=== PATIENT | male | born 1950 | race Caucasian/White ===

== ENCOUNTER 2017-08-25 14:27 | Emergency (ER) | payer MEDICARE, OTHER ==
[~2017-08-25] VITALS: Ht 175.3 cm; Wt 79.4 kg
[~2017-08-25 14:27] MED LIST: ACHD5005 PO; ATOR80TA PO; BPR150TCR PO; CPR500T PO; DICL100G20 TOP; FLC1T PO; FNT75TD TD; HYDR-623 PO; HYDR1LIQ3 PO; HYDR1TAB66 PO; METH4TAB PO; NITR-33 PO; ONDN4T PO; ORPH100T PO; OXYC-12 PO; RABE20TA PO; TRZ100T PO; ZLP10T PO
--- OUTSIDE RECORDS SUMMARY | 2017-08-25 14:38 | XMS REPORT | Clinical Summary ---
Author Author [facility] Organization [facility] Address Unknown Phone Unavailable Care Team Providers Care Commercial Driver'S License Driver Name Role Phone PCP Unavailable Source Comments Some departments are not documenting in the electronic medical record. If you do not see the information that you expected, contact Release of Information in the Health Information Management department at [phone] for further assistance in locating additional records.[facility] Allergies Not on File Current Medications Not on file Active Problems Not on file Social History Tobacco Use Types Packs/Day Years Used Date Never Assessed Sex Assigned at Date Recorded Not on file Last Filed Vital Signs Not on file Plan of Treatment Health Maintenance Due Date Last Done Comments HEPATITIS C SCREENING 1950 PHYSICAL (COMPREHENSIVE) 1956 EXAM PERTUSSIS VACCINE 1960 TETANUS VACCINE 1966 COLORECTAL CANCER 12/14/1999 SCREENING SHINGLES VACCINE 2009 PNEUMONIA (PCV13/PPSV23) 2014 VACCINES (1 of 2 - PCV13) INFLUENZA VACCINE 12/14/2017 Results Not on filefrom Last 3 Months
--- OUTSIDE RECORDS SUMMARY | 2017-08-25 14:39 | XMS REPORT | Continuity of Care Document ---
Author Author [facility] Organization [facility] Address Unknown Phone Unavailable Allergies Active Description Code Type Severity Reaction Onset Reported/Identified Relationship to Patient Clinical Status Yes No Known Drug Allergies [id number] Drug Allergy Unknown N/A 04/11/2011 Medications There is no data. Problems Date Dx Coded Attending Type Code Diagnosis Diagnosed By 04/11/2011 Ot 591 HYDRONEPHROSIS 04/11/2011 Ot 592.1 CALCULUS OF URETER 04/11/2011 Ot 789.09 ABDOMINAL PAIN, OTHER SPECIFIED SITE 04/13/2011 Ot 592.1 CALCULUS OF URETER 04/13/2011 Ot 788.0 RENAL COLIC 04/13/2011 Ot 789.09 ABDOMINAL PAIN, OTHER SPECIFIED SITE 04/23/2011 Ot 592.0 CALCULUS OF KIDNEY 01/02/2012 Ot 211.3 BENIGN NEOPLASM LG BOWEL 01/02/2012 Ot V76.51 SCREEN MAL NEOP-COLON 09/12/2012 ELLIOT FELIX DO Ot 724.2 LUMBAGO 09/12/2012 ELLIOT FELIX DO Ot 724.4 LUMBOSACRAL NEURITIS NOS 10/14/2012 CARLYN BRADFORD, BEATRIZ Wilburn Ot 724.2 LUMBAGO 10/14/2012 BEATRIZ ALCOCER MD Ot 724.4 LUMBOSACRAL NEURITIS NOS 03/20/2013 SHARON BRADFORD, MAXIMILIAN Wilburn Ot 787.91 DIARRHEA 07/05/2013 YADIEL BRADFORD, SONIYA Kaye Ot 338.18 OTHER ACUTE POSTOPERATIVE PAIN 07/05/2013 SONIYA COTTO MD Ot 719.41 JOINT PAIN-SHLDER 01/06/2014 YARA CAT MD Ot 721.3 01/06/2014 YARA CAT MD Ot V58.69 02/06/2014 Ot 787.02 02/06/2014 Ot 789.00 02/06/2014 Ot 783.21 02/06/2014 Ot 787.02 02/06/2014 Ot 717.3 02/06/2014 Ot 719.06 02/06/2014 Ot 592.0 02/06/2014 Ot 592.1 02/06/2014 Ot 592.0 02/06/2014 Ot V72.83 02/06/2014 Ot V74.8 02/06/2014 Ot 592.0 02/06/2014 Ot V45.89 02/06/2014 Ot V72.84 02/06/2014 YARA CAT MD Ot 272.4 02/06/2014 YARA CAT MD Ot 311 02/06/2014 YARA CAT MD Ot 716.90 02/06/2014 YARA CAT MD Ot 721.3 02/06/2014 YARA CAT MD Ot 722.83 02/06/2014 YARA CAT MD Ot 726.5 02/06/2014 YARA CAT MD Ot V12.71 02/06/2014 YARA CAT MD Ot V13.01 02/06/2014 YARA CAT MD Ot V45.4 02/06/2014 YARA CAT MD Ot V58.69 02/06/2014 YARA CAT MD Ot 715.36 02/06/2014 Ot 787.91 02/06/2014 SCOTT DUMONT APRN Ot V45.89 02/06/2014 SCOTT DUMONT APRN Ot V57.1 02/07/2014 SCOTT DUMONT APRN Ot V45.89 02/07/2014 SCOTT DUMONT APRN Ot V57.1 02/15/2014 SCOTT DUMONT APRN Ot V45.89 POSTSURGICAL STATES NEC 02/15/2014 SCOTT DUMONT INFECTION CONTROL PREVENTIONIST Ot V57.1 PHYSICAL THERAPY NEC 04/24/2014 Ot 783.21 04/24/2014 Ot 787.02 04/24/2014 Ot 717.3 04/24/2014 Ot 719.06 04/24/2014 Ot 592.0 04/24/2014 Ot 592.1 04/24/2014 Ot 592.0 04/24/2014 Ot V72.83 04/24/2014 Ot V74.8 04/24/2014 Ot 592.0 04/24/2014 Ot V45.89 04/24/2014 Ot V72.84 04/24/2014 YARA CAT MD Ot 272.4 04/24/2014 YARA CAT MD Ot 311 04/24/2014 YARA CAT MD Ot 716.90 04/24/2014 YARA CAT MD Ot 721.3 04/24/2014 YARA CAT MD Ot 722.83 04/24/2014 YARA CAT MD Ot 726.5 04/24/2014 YARA CAT MD Ot V12.71 04/24/2014 YARA CAT MD Ot V13.01 04/24/2014 YARA CAT MD Ot V45.4 04/24/2014 YARA CAT MD Ot V58.69 04/24/2014 YARA CAT MD Ot 715.36 04/24/2014 Ot 787.91 05/08/2014 Ot 717.3 05/08/2014 Ot 719.06 05/08/2014 Ot 592.0 05/08/2014 Ot 592.1 05/08/2014 Ot 592.0 05/08/2014 Ot V72.83 05/08/2014 Ot V74.8 05/08/2014 Ot 592.0 05/08/2014 Ot V45.89 05/08/2014 Ot V72.84 05/08/2014 YARA CAT MD Ot 272.4 05/08/2014 YARA CAT MD Ot 311 05/08/2014 YARA CAT MD Ot 716.90 05/08/2014 YARA CAT MD Ot 721.3 05/08/2014 YARA CAT MD Ot 722.83 05/08/2014 YARA CAT MD Ot 726.5 05/08/2014 YARA CAT MD Ot V12.71 05/08/2014 YARA CAT MD Ot V13.01 05/08/2014 YARA CAT MD Ot V45.4 05/08/2014 YARA CAT MD Ot V58.69 05/08/2014 YARA CAT MD Ot 715.36 05/08/2014 Ot 787.91 10/06/2014 Ot 717.3 10/06/2014 Ot 719.06 10/06/2014 Ot 592.0 10/06/2014 Ot 592.1 10/06/2014 Ot 592.0 10/06/2014 Ot V72.83 10/06/2014 Ot V74.8 10/06/2014 Ot 592.0 10/06/2014 Ot V45.89 10/06/2014 Ot V72.84 10/06/2014 YARA CAT MD Ot 272.4 10/06/2014 YARA CAT MD Ot 311 10/06/2014 YARA CAT MD Ot 716.90 10/06/2014 YARA CAT MD Ot 721.3 10/06/2014 YARA CAT MD Ot 722.83 10/06/2014 YARA CAT MD Ot 726.5 10/06/2014 YARA CAT MD Ot V12.71 10/06/2014 YARA CAT MD Ot V13.01 10/06/2014 YARA CAT MD Ot V45.4 10/06/2014 YARA CAT MD Ot V58.69 10/06/2014 YARA CAT MD Ot 715.36 10/06/2014 Ot 787.91 10/06/2014 YARA CAT MD Ot 721.3 LUMBOSACRAL SPONDYLOSIS 10/06/2014 YARA CAT MD Ot V58.69 OT MED,LT,CURRENT USE 11/14/2014 YARA CAT MD Ot 721.3 01/08/2015 Ot 592.0 01/08/2015 Ot 592.1 01/08/2015 Ot 592.0 01/08/2015 Ot V72.83 01/08/2015 Ot V74.8 01/08/2015 Ot 592.0 01/08/2015 Ot V45.89 01/08/2015 Ot V72.84 01/08/2015 YARA CAT MD Ot 272.4 01/08/2015 YARA CAT MD Ot 311 01/08/2015 YARA CAT MD Ot 716.90 01/08/2015 YARA CAT MD Ot 721.3 01/08/2015 YARA CAT MD Ot 722.83 01/08/2015 YARA CAT MD Ot 726.5 01/08/2015 YARA CAT MD Ot V12.71 01/08/2015 YARA CAT MD Ot V13.01 01/08/2015 YARA CAT MD Ot V45.4 01/08/2015 YARA CAT MD Ot V58.69 01/08/2015 YARA CAT MD Ot 715.36 01/08/2015 Ot 787.91 01/08/2015 YARA CAT MD Ot 721.3 02/13/2015 Ot 592.0 02/13/2015 Ot 592.1 02/13/2015 Ot 592.0 02/13/2015 Ot V72.83 02/13/2015 Ot V74.8 02/13/2015 Ot 592.0 02/13/2015 Ot V45.89 02/13/2015 Ot V72.84 02/13/2015 YARA CAT MD Ot 272.4 02/13/2015 YARA CAT MD Ot 311 02/13/2015 YARA CAT MD Ot 716.90 02/13/2015 YARA CAT MD Ot 721.3 02/13/2015 YARA CAT MD Ot 722.83 02/13/2015 YARA CAT MD Ot 726.5 02/13/2015 YARA CAT MD Ot V12.71 02/13/2015 YARA CAT MD Ot V13.01 02/13/2015 YARA CAT MD Ot V45.4 02/13/2015 YARA CAT MD Ot V58.69 02/13/2015 YARA CAT MD Ot 715.36 02/13/2015 Ot 787.91 02/13/2015 YARA CAT MD Ot 721.3 02/14/2015 NI ARIZMENDI MD Ot F17.210 NICOTINE DEPENDENCE, CIGARETTES, UNCOMPL 02/14/2015 NI ARIZMENDI MD Ot G89.18 OTHER ACUTE POSTPROCEDURAL PAIN 02/14/2015 NI ARIZMENDI MD Ot Z98.42 CATARACT EXTRACTION STATUS, LEFT EYE 12/18/2015 Ot 592.0 CALCULUS OF KIDNEY 12/18/2015 Ot 592.1 CALCULUS OF URETER 12/18/2015 Ot 592.0 CALCULUS OF KIDNEY 12/18/2015 Ot V72.83 EXAM PRE- OPERATIVE NEC 12/18/2015 Ot V74.8 SCREEN- BACTERIAL DIS NEC 12/18/2015 Ot 592.0 CALCULUS OF KIDNEY 12/18/2015 Ot V45.89 POSTSURGICAL STATES NEC 12/18/2015 Ot V72.84 EXAM PRE- OPERATIVE NOS 12/18/2015 YARA CAT MD Ot 272.4 HYPERLIPIDEMIA NEC/NOS 12/18/2015 YARA CAT MD Ot 311 DEPRESSIVE DISORDER NEC 12/18/2015 YARA CAT MD Ot 716.90 ARTHROPATHY NOS-UNSPEC 12/18/2015 YARA CAT MD Ot 721.3 LUMBOSACRAL SPONDYLOSIS 12/18/2015 YARA CAT MD Ot 722.83 POSTLAMINECT SYND-LUMBAR 12/18/2015 YARA CAT MD Ot 726.5 ENTHESOPATHY OF HIP 12/18/2015 YARA CAT MD Ot V12.71 PERSONAL HISTORY OF PEPTIC ULCER DISEASE 12/18/2015 YARA CAT MD Ot V13.01 PERSONAL HISTORY OF URINARY CALCULI 12/18/2015 YARA CAT MD Ot V45.4 ARTHRODESIS STATUS 12/18/2015 YARA CAT MD Ot V58.69 OTH MED,LT,CURRENT USE 12/18/2015 YARA CAT MD Ot 715.36 LOC OSTEOARTH NOS-L/LEG 12/18/2015 Ot 787.91 DIARRHEA 12/18/2015 YARA CAT MD Ot 721.3 LUMBOSACRAL SPONDYLOSIS 08/14/2016 Ot 592.0 CALCULUS OF KIDNEY 08/14/2016 Ot 592.1 CALCULUS OF URETER 08/14/2016 Ot 592.0 CALCULUS OF KIDNEY 08/14/2016 Ot V72.83 EXAM PRE- OPERATIVE NEC 08/14/2016 Ot V74.8 SCREEN- BACTERIAL DIS NEC 08/14/2016 Ot 592.0 CALCULUS OF KIDNEY 08/14/2016 Ot V45.89 POSTSURGICAL STATES NEC 08/14/2016 Ot V72.84 EXAM PRE- OPERATIVE NOS 08/14/2016 YARA CAT MD Ot 272.4 HYPERLIPIDEMIA NEC/NOS 08/14/2016 YARA CAT MD Ot 311 DEPRESSIVE DISORDER NEC 08/14/2016 YARA CAT MD Ot 716.90 ARTHROPATHY NOS-UNSPEC 08/14/2016 YARA CAT MD Ot 721.3 LUMBOSACRAL SPONDYLOSIS 08/14/2016 YARA CAT MD Ot 722.83 POSTLAMINECT SYND-LUMBAR 08/14/2016 YARA CAT MD Ot 726.5 ENTHESOPATHY OF HIP 08/14/2016 YARA CAT MD Ot V12.71 PERSONAL HISTORY OF PEPTIC ULCER DISEASE 08/14/2016 YARA CAT MD, Ot V13.01 PERSONAL HISTORY OF URINARY CALCULI 08/14/2016 YARA CAT MD, Ot V45.4 ARTHRODESIS STATUS 08/14/2016 YARA CAT MD, Ot V58.69 OTH MED,LT,CURRENT USE 08/14/2016 YARA CAT MD, Ot 715.36 LOC OSTEOARTH NOS-L/LEG 08/14/2016 Ot 787.91 DIARRHEA 08/14/2016 YARA CAT MD Ot 721.3 LUMBOSACRAL SPONDYLOSIS 05/22/2017 Ot V72.84 EXAM PRE- OPERATIVE NOS 05/22/2017 YARA CAT MD Ot 272.4 HYPERLIPIDEMIA NEC/NOS 05/22/2017 YARA CAT MD Ot 311 DEPRESSIVE DISORDER NEC 05/22/2017 YARA CAT MD Ot 716.90 ARTHROPATHY NOS-UNSPEC 05/22/2017 YARA CAT MD, Ot 721.3 LUMBOSACRAL SPONDYLOSIS 05/22/2017 YARA CAT MD Ot 722.83 POSTLAMINECT SYND-LUMBAR 05/22/2017 YARA CAT MD Ot 726.5 ENTHESOPATHY OF HIP 05/22/2017 YARA CAT MD, Ot V12.71 PERSONAL HISTORY OF PEPTIC ULCER DISEASE 05/22/2017 YARA CAT MD, Ot V13.01 PERSONAL HISTORY OF URINARY CALCULI 05/22/2017 YARA CAT MD, Ot V45.4 ARTHRODESIS STATUS 05/22/2017 YARA CAT MD, Ot V58.69 OTH MED,LT,CURRENT USE 05/22/2017 YARA CAT MD Ot 715.36 LOC OSTEOARTH NOS-L/LEG 05/22/2017 Ot 787.91 DIARRHEA 05/22/2017 YARA CAT MD, Ot 721.3 LUMBOSACRAL SPONDYLOSIS Procedures There is no data. Results There is no data. Encounters ACCT No. Visit Date/Time Discharge Status Pt. Type Provider Facility Loc./Unit Complaint [id number] 02/13/2015 23:08:00 02/14/2015 00:24:00 DIS Emergency NI ARIZMENDI MD [facility] ER PAIN BURNING OF BOTH EYES-CATARACT SURGERY 02-13 [id number] 10/06/2014 08:53:00 10/06/2014 23:59:59 CLS Outpatient YARA CAT MD [facility] CARD LUMBAR SPONDYLOSIS [id number] 02/15/2014 09:56:00 02/15/2014 14:25:00 DIS Outpatient SCOTT DUMONT APRN [facility] REHAB S/P MASSIVE RCT REPAIR R SHLD [id number] 01/06/2014 07:25:00 01/06/2014 08:22:00 DIS Outpatient YARA CAT MD [facility] CARD LUMBAR SPONDYLOSIS [id number] 07/05/2013 03:01:00 07/05/2013 03:52:00 DIS Emergency SONIYA COTTO MD [facility] ER POST OP RT SHOULDER PAIN [id number] 12/21/2012 12:51:00 03/20/2013 00:01:00 DIS Outpatient MAXIMILIAN HERRERA MD [facility] LAB DIARRHEA X 5 WKS [id number] 11/09/2012 09:49:00 11/09/2012 23:59:59 CLS Outpatient YARA CAT MD [facility] RAD RIGHT KNEE PAIN [id number] 10/22/2012 07:17:00 10/22/2012 23:59:59 CLS Outpatient YARA CAT MD [facility] CARD LUMBAR SPONDYLOSIS [id number] 10/14/2012 22:39:00 10/14/2012 23:19:00 DIS Emergency BEATRIZ ALCOCER MD [facility] ER BACK/HIP PAIN [id number] 09/12/2012 14:07:00 09/12/2012 15:12:00 DIS Emergency ELLIOT FELIX DO [facility] ER R BACK PAIN [id number] 02/06/2014 12:14:00 Document Registration [id number] 03/21/2013 00:00:00 Document Registration [id number] 01/02/2012 07:06:00 Document Registration [id number] 01/01/2012 07:20:00 Document Registration [id number] 05/07/2011 13:32:00 Document Registration [id number] 04/23/2011 05:37:00 Document Registration [id number] 04/22/2011 08:09:00 Document Registration [id number] 04/18/2011 14:00:00 Document Registration [id number] 04/13/2011 02:55:00 Document Registration [id number] 04/11/2011 02:41:00 Document Registration [id number] 07/06/2009 12:20:00 Document Registration [id number] 11/03/2008 10:09:00 Document Registration [id number] 10/25/2008 07:11:00 Document Registration [id number] 10/06/2014 08:54:38 ACT Document Registration
--- NOTE | 2017-08-25 15:15 | ED Fall/Injury ---
General Chief Complaint: Chest Wall/Rib Pain Stated Complaint: LT RIB PAIN Nursing Triage Note: PT STATES HAD FALLEN ON THURSDAY HAS PAIN UNDER L ARM AND L RIB AREA. PT RATES PAIN 9/10 WHEN COUGHS DENIES LOC. PT IS A SMOKER, AND STATES DRINKS RUM DAILY Source: patient Exam Limitations: no limitations History of Present Illness Date Seen by Provider: Aug 25, 2017 Time Seen by Provider: 14:46 Initial Comments This 66-year-old gentleman presents to the emergency room with pain on the left side of the chest after having a fall on August 21. He fell while helping a friend move some items and struck his left chest on the ground. He denies any head or neck injury. He has had persistent pain since that time. He has been taking ibuprofen and tramadol for the pain. He is now out of tramadol and has put in a refill request with his primary care provider, Dr. Clifford. Patient also drinks rum daily and he states that helps control the pain. Pain is much worse when he coughs and exhales. Allergies and Home Medications Allergies Coded Allergies: No Known Drug Allergies (Unverified , 04/11/11) Home Medications Bupropion Hcl 150 Mg Tablet, 150 MG PO BID, (Reported) Diclofenac Sod 100 Gm Gel, 1 EACH TOP NEEDED, (Reported) Hydrocodone Bit/Acetaminophen 1 Tab Tablet, 1 EACH PO Q 4 - 6 HRS PRN, (Reported ) Hydrocodone/Acetaminophen 1 Each Tablet, 1 EACH PO Q4H PRN for PAIN-MODERATE TO SEVERE Prescribed by: NI CANTRELL on 08/25/17 1547 Hydromorphone Hcl 1 Mg/1 Ml Liquid, 2 MG PO Q4H, (Reported) Rabeprazole Sodium 20 Mg Tablet.dr, 5 MG PO DAILY, (Reported) Trazodone Hcl 100 Mg Tab, 100 MG PO HS, (Reported) 100-300 MG PRN HS Zolpidem Tartrate 10 Mg Tablet, 10 MG PO HS, (Reported) Patient Home Medication List Home Medication List Reviewed: Yes Review of Systems Constitutional: no symptoms reported Eyes: No Symptoms Reported Ears, Nose, Mouth, Throat: no symptoms reported Respiratory: no symptoms reported Cardiovascular: no symptoms reported Gastrointestinal: no symptoms reported Genitourinary: no symptoms reported Musculoskeletal: see HPI Skin: no symptoms reported Psychiatric/Neurological: No Symptoms Reported Past Qrrjysa-Efiqfb-Byhmdq Hx Patient Social History Alcohol Use: Regular Use Alcohol Beverage of Choice: Rum Recreational Drug Use: No (smokes 1/2-1 ppd) Smoking Status: Current Everyday Smoker Type Used: Cigarettes Recent Foreign Travel: No Contact w/Someone Who Travel: No Recent Infectious Disease Expo: No Physical Abuse: No Sexual Abuse: No Immunizations Up To Date Tetanus Booster (TDap): Unknown Date of Influenza Vaccine: Dec 14, 2010 Seasonal Allergies Seasonal Allergies: No Past Medical History Surgeries: Yes Abdominal, Orthopedic Respiratory: Yes (tobaccoism) Cardiac: No Neurological: No Reproductive Disorders: No Sexually Transmitted Disease: No Genitourinary: Yes Kidney Stones Gastrointestinal: Yes Gastroesophageal Reflux, Chronic Constipation, Ulcer Musculoskeletal: Yes Degenerate Disk Disease, Arthritis, Chronic Back Pain Endocrine: No HEENT: No Loss of Vision: Denies Cancer: No Skin Psychosocial: Yes (alcohol dependence) Depression Nursing Suicide Risk Score: 0 Physical Exam Vital Signs Vital Signs - First Documented 08/25/17 14:43 Temp 97.8 Pulse 76 Resp 18 B/P (MAP) 119/85 (96) Pulse Ox 96 Capillary Refill : NONE General Appearance: WD/WN, no apparent distress HEENT: PERRL/EOMI, normal ENT inspection Neck: normal inspection Cardiovascular: regular rate, rhythm, no edema, no murmur Respiratory: lungs clear, normal breath sounds, no respiratory distress, no accessory muscle use, other (left lateral chest wall tender to palpation) Gastrointestinal: normal bowel sounds, non tender, soft Extremities: non-tender, normal inspection, no pedal edema Neurologic/Psychiatric: pre school manager II-XII nml as tested, no motor/sensory deficits, alert, normal mood/affect, oriented x 3 Skin: normal color [place] Coma Score Best Eye Response: (4) Open Spontaneously Best Verbal Response: (5) Oriented Best Motor Response: (6) Obeys Commands [place] Total: 15 Progress/Results/Core Measures Results/Orders My Orders Orders - NI ARIZMENDI MD Ribs, Left 2-3 Views (08/25/17 14:54) Vital Signs/I&O 08/25/17 08/25/17 14:43 16:00 Temp 97.8 97.8 Pulse 76 76 Resp 18 18 B/P (MAP) 119/85 (96) 119/85 (96) Pulse Ox 96 96 Blood Pressure Mean: 96 Progress Progress Note : Progress Note Patient was found to have at least one rib fracture. There was a definite rib fracture of rib 8 as identified on x-ray by the radiologist. I believe there may be one or 2 additional minor fractures as well based on my interpretation. Hydrocodone was prescribed for pain control. See discharge instructions. Diagnostic Imaging Diagonstic Imaging: Xray Plain Films/CT/US/NM/MRI: chest Comments Rib x-rays reviewed by me and report reviewed. See report below: NAME: SURI GARCIA [facility] REC#: [id number] PT STATUS: DEP ER : 1950 PHYSICIAN: NI ARIZMENDI MD ADMIT DATE: 08/25/17/ER Signed Date of Exam: 08/25/17 RIBS, LEFT 2-3 VIEWS INDICATION: Status post fall several days ago, pain. TECHNIQUE: Three views of the left ribs were obtained at 3:24 PM. CORRELATION STUDY: None. FINDINGS: A minimally displaced left posterolateral eighth rib fracture is present. The remaining ribs appear intact. The left lung field is unremarkable. IMPRESSION: Minimally displaced left posterolateral eighth rib fracture. Dictated by: Dictated on workstation # [id number] Dict: 08/25/17 1507 Trans: 08/25/17 1631 Interpreted by: ANNE SMITH DO Electronically signed by: ANNE SMITH DO 08/25/17 1631 Departure Impression Primary Impression: Left rib fracture Qualified Codes: S22.42XA - Multiple fractures of ribs, left side, initial encounter for closed fracture Additional Impression: Fall on same level Qualified Codes: W18.30XA - Fall on same level, unspecified, initial encounter Disposition: 01 HOME, SELF-CARE Condition: Stable Departure-Patient Inst. Decision time for Depature: 15:39 Referrals: MAXIMILIAN CLIFFORD MD (PCP/Family) Primary Care Physician Patient Instructions: Rib Fractures in Adults Add. Discharge Instructions: Exercise at least 10 deep breaths 10 times per hour while awake. You may treat your pain with Ultram (tramadol) as prescribed. For more severe pain you may take hydrocodone as prescribed. Return to care if you have worsening symptoms, especially if you have worsening cough, fever, or increasing pain. Avoid use of NSAID medications such as ibuprofen or naproxen as they may delay bone healing. Follow-up with your primary care provider soon as possible. All discharge instructions reviewed with patient and/or family. Voiced understanding. Scripts Hydrocodone/Acetaminophen (Hydrocodone-Acetamin 5-325 mg) 1 Each Tablet 1 EACH PO Q4H PRN for PAIN-MODERATE TO SEVERE, #20 TAB Prov: NI ARIZMENDI MD 08/25/17 Copy Copies To 1: MAXIMILIAN CLIFFORD MD, JOSHUA T MD Aug 25, 2017 15:15
[2017-08-25] MEDS ORDERED: HYDR-3812 PO (15:47)
[2017-08-25 16:00] VITALS: BP 119/85
== END 2017-08-25 16:00 | disposition home or self-care (01) ==
LOC: EDUNIT# 14:27 → ER 14:29
DX: S22.32XA Fracture of one rib, left side, initial encounter for closed fracture (principal); K21.9 Gastro-esophageal reflux disease without esophagitis; R40.2142 Coma scale, eyes open, spontaneous, at arrival to emergency department; R40.2252 Coma scale, best verbal response, oriented, at arrival to emergency department; R40.2362 Coma scale, best motor response, obeys commands, at arrival to emergency department; F10.20 Alcohol dependence, uncomplicated; F17.210 Nicotine dependence, cigarettes, uncomplicated; F32.9 Major depressive disorder, single episode, unspecified; Z85.9 Personal history of malignant neoplasm, unspecified; Z87.19 Personal history of other diseases of the digestive system; W18.30XA Fall on same level, unspecified, initial encounter
CPT/HCPCS: 71100

== ENCOUNTER → 2019-08-09 | Outpatient (CLI) | payer MEDICARE, OTHER ==
[~2019-08-09] MED LIST changes: +HOLD METFORMIN - RECEIVED CONTRAST 20 ML VIAL IV SCH; +IOHEXOL 350 MG/ML 100 ML (OMNIPAQUE 350) VIAL IV ONE; +NS 100 ML (IVPB) BAG IV ONE
--- NOTE | 2019-08-09 13:08 | Diagnostic Imaging Report ---
EXAMINATION: CT Abdomen and Pelvis with intravenous contrast. TECHNIQUE: Multiple contiguous axial images were obtained through the abdomen and pelvis after the uneventful administration of intravenous contrast. All CT scans use one or more of the following dose optimizing techniques: automated exposure control, MA and/or KvP adjustment based on a patient size and exam type, or iterative reconstruction. HISTORY: Abdominal distention. COMPARISON: 04/18/2011. FINDINGS: Limited views of the lower thorax show mild coronary artery calcifications. The liver is normal without focal lesion. There is no biliary ductal dilation. Gallbladder is normal. Pancreas is normal. Spleen is normal. Adrenal glands are normal. The kidneys are normal. There is no hydronephrosis. Urinary bladder is normal. Visualized bowel is normal in caliber without obstruction or inflammation. There has been a ventral hernia repair. No free fluid or air. No abdominal or pelvic lymphadenopathy. Aorta is normal in caliber without aneurysm. There are no suspicious osseus lesions. IMPRESSION: 1. No acute abnormality in the abdomen or pelvis. Dictated by: Dictated on workstation # [id number]
== END ==
LOC: RAD 11:14
PROVIDERS: ATTEND Internal Medicine
DX: R14.0 Abdominal distension (gaseous) (principal); I10 Essential (primary) hypertension
CPT/HCPCS: 74177

== ENCOUNTER 2019-09-15 06:19 | Outpatient (RCR) | payer MEDICARE, OTHER ==
[~2019-09-15 06:19] MED LIST changes: -HOLD METFORMIN - RECEIVED CONTRAST 20 ML VIAL IV SCH; -IOHEXOL 350 MG/ML 100 ML (OMNIPAQUE 350) VIAL IV ONE; -NS 100 ML (IVPB) BAG IV ONE
[2019-12-03] MEDS ORDERED: TRAM50TA3 PO (13:31)
[2019-12-03] MEDS ORDERED: RABE20TA27 PO (13:31)
[2019-12-05] MEDS ORDERED: ACET-2267 PO (08:54)
[2019-12-05] MEDS ORDERED: IBUP-2473 PO (08:54)
[2019-12-05] MEDS ORDERED: ONDA4TAB11 PO (08:54)
[2019-12-05] MEDS ORDERED: POLY17PO6 PO (08:54)
[2019-12-05] MEDS ORDERED: BUPR150T14 PO ×2 (09:05)
== END 2019-12-14 | disposition home or self-care (01) ==
LOC: PREOP 06:19
PROVIDERS: ATTEND Internal Medicine
DX: Z01.818 Encounter for other preprocedural examination (principal)

== ENCOUNTER 2019-12-02 06:50 | Inpatient (IN) | payer MEDICARE, OTHER ==
[~2019-12-02] VITALS: Ht 175 cm; Wt 87.8 kg
[2019-12-02] MEDS ORDERED: LACTATED RINGERS 1,000 ML IV ONE ×2 (06:53→08:03)
[2019-12-02] MEDS ORDERED: ONDANSETRON 4 MG/2 ML (SDV) Z0FRAN IVP ONE ×2 (07:00→12:15)
[2019-12-02] MEDS ORDERED: PANTOPRAZOLE 40 MG (PROTONIX) VIAL IV ONE (07:00)
--- NOTE | 2019-12-02 07:05 | ED Abdominal Pain ---
General Chief Complaint: Abdominal/GI Problems Stated Complaint: ABD PAIN Source of Information: Patient History of Present Illness Date Seen by Provider: Dec 02, 2019 Time Seen by Provider: 06:51 Initial Comments PT ARRIVES VIA EMS FROM HOME C/O EPIGASTRIC PAIN--BEGAN SOMETIME DURING THE NIGHT C/O NAUSEA--ONGOING PROBLEM, AND DRY HEAVES BEGAN MAN[place]OR HAS ZOFRAN AND PHENERGAN SUPPOSITORIES AT HOME, BUT HAS NOT TAKEN ANYTHING TAKES ULTRAM FOR CHRONIC BACK PAIN AND GENERALIZED PAIN, BUT HAS NOT TAKEN ANY IN A COUPLE OF WEEKS NO FEVER ATE NORMAL YESTERDAY HAD NORMAL BM THIS MORNING PRIOR ABDOMINAL SURGERIES; BILAT INGUINAL HERNIA REPAIR, HAD BACK SURGERY WITH BOTH POSTERIOR AND ANTERIOR APPROACH. HX OF ALCOHOLISM --DRINKS AT LEAST A PINT OR MORE OF RUM A DAY--LAST DRINK WAS AROUND MIDNIGHT PT ALSO SMOKES 2 PPD PCP: DR. HERRERA Allergies and Home Medications Allergies Coded Allergies: No Known Drug Allergies (Unverified , 04/11/11) Home Medications Bupropion Hcl 150 Mg Tablet, 150 MG PO BID, (Reported) Diclofenac Sod 100 Gm Gel, 1 EACH TOP NEEDED, (Reported) Hydrocodone Bit/Acetaminophen 1 Tab Tablet, 1 EACH PO Q 4 - 6 HRS PRN, (Reported) Hydrocodone Bit/Acetaminophen 1 Each Tablet, 1 EACH PO Q4H PRN for PAIN-MODERATE TO SEVERE Prescribed by: NI CANTRELL on 08/25/17 1547 Hydromorphone Hcl 1 Mg/1 Ml Liquid, 2 MG PO Q4H, (Reported) Rabeprazole Sodium 20 Mg Tablet.dr, 5 MG PO DAILY, (Reported) Trazodone Hcl 100 Mg Tab, 100 MG PO HS, (Reported) 100-300 MG PRN HS Zolpidem Tartrate 10 Mg Tablet, 10 MG PO HS, (Reported) Patient Home Medication List Home Medication List Reviewed: Yes Review of Systems Review of Systems Constitutional: no symptoms reported; No chills, No diaphoresis, No dizziness, No fever Respiratory: No Symptoms Reported Cardiovascular: No Symptoms Reported; Denies Chest Pain Gastrointestinal: See HPI; Denies Constipated, Denies Diarrhea; Nausea, Vomiting (DRY HEAVES) Genitourinary: No Symptoms Reported Musculoskeletal: other (CHRONIC GENERALIZED PAIN ) Skin: no symptoms reported Psychiatric/Neurological: No Symptoms Reported Endocrine: No Symptoms Reported Hematologic/Lymphatic: No Symptoms Reported Past Wwgqziq-Lppnqp-Ckavog Hx Past Med/Social Hx: Reviewed and Corrections made Patient Social History Alcohol Use: Regular Use (AT LEAST A PINT OF RUM A DAY) Alcohol Beverage of Choice: Rum Smoking Status: Current Everyday Smoker (2 PPD) Type Used: Cigarettes (2 PPD) Immunizations Up To Date Tetanus Booster (TDap): Unknown Date of Influenza Vaccine: Dec 14, 2010 Seasonal Allergies Seasonal Allergies: No Past Medical History Surgeries: Yes (IVANNA INGUINAL HERNIA REPAIR;BACK SURGERY X 2-ANT & POST APPROACH;R ROT CUFF) Abdominal, Orthopedic Respiratory: Yes (tobaccoism) Cardiac: No Neurological: No Reproductive Disorders: No Sexually Transmitted Disease: No Genitourinary: Yes (LITHOTRIPSY 2011) Kidney Stones Gastrointestinal: Yes (LEFT INGUINAL HERNIA REPAIR;GASTRITIS) Abdominal Hernia, Gastroesophageal Reflux, Chronic Constipation, Polyps, Ulcer Musculoskeletal: Yes (BACK SURGERY X 2) Degenerate Disk Disease, Arthritis, Chronic Back Pain Endocrine: No HEENT: No Loss of Vision: Denies Cancer: Yes (BASAL CELL) Skin Did You Recieve Any Treatments: Yes What Type of Treatment Did You: Surgical Intervention Psychosocial: Yes (alcohol dependence) Depression Family Medical History SOCIAL HISTORY: -DRINKS AT LEAST A PINT OF RUM A DAY -DENIES DRUG USE -SMOKES 2 PPD HAS BEEN ON DAILY DILAUDID IN PAST FOR BACK AND GENERALIZED PAIN, NOW ON TRAMADOL, OF 12/02/19 PSH: -BILATERAL INGUINAL HERNIA REPAIR -BACK SURGERY X 2--ANTERIOR AND POSTERIOR APPROACH--L4-5 LAMINECTOMY;L5-S1 FUSION -RIGHT SHOULDER ROTATOR CUFF REPAIR -EGD 2008--GASTRITIS -COLONOSCOPY--2011--POLYPECTOMY -LITHOTRIPSY 2011 -RIGHT KNEE SCOPE -REMOVAL OF BASAL CELL SKIN CANCER Physical Exam Vital Signs Vital Signs - First Documented 12/02/19 06:52 Temp 36.1 Pulse 96 Resp 20 B/P (MAP) 166/108 (127) Pulse Ox 93 O2 Delivery Room Air Capillary Refill : Height/Weight/BMI Height: 5'9.00" Weight: 175lbs. oz. 79.270798vn; BMI Method:Stated General Appearance: WD/WN, other (DRY HEAVING ON ARRIVAL) Respiratory: normal breath sounds, no respiratory distress, no accessory muscle use Cardiovascular: regular rate, rhythm, no edema, no JVD, no murmur Gastrointestinal: no organomegaly, no pulsatile mass, abnormal bowel sounds (DECREASED), distended (AND FIRM), tenderness (MID EPIGASTRIC TENDERNESS) Extremities: normal inspection, no pedal edema, normal capillary refill Back: no CVA tenderness Neurologic/Psychiatric: safety companion II-XII nml as tested, no motor/sensory deficits, alert, other (ANXIOUS, TREMULOUS, ORIENTED TO PERSON, PLACE, SOMEWHAT DISORIENTED TO TIME. POOR MEMORY. ) Skin: normal color, warm/dry Progress/Results/Core Measures Results/Orders Lab Results Laboratory Tests Test 12/02/19 06:55 12/02/19 09:30 Range/Units White Blood Count 4.9 4.3-11.0 10^3/uL Red Blood Count 3.19 L 4.35-5.85 10^6/uL Hemoglobin 12.8 L 13.3-17.7 G/DL Hematocrit 36 L 40-54 % Mean Corpuscular Volume 113 H 80-99 FL Mean Corpuscular Hemoglobin 40 H 25-34 PG Mean Corpuscular Hemoglobin Concent 36 32-36 G/DL Red Cell Distribution Width 16.8 H 10.0-14.5 % Platelet Count 183 130-400 10^3/uL Mean Platelet Volume 8.9 7.4-10.4 FL Neutrophils (%) (Auto) 65 42-75 % Lymphocytes (%) (Auto) 25 12-44 % Monocytes (%) (Auto) 9 0-12 % Eosinophils (%) (Auto) 2 0-10 % Basophils (%) (Auto) 0 0-10 % Neutrophils # (Auto) 3.2 1.8-7.8 X 10^3 Lymphocytes # (Auto) 1.2 1.0-4.0 X 10^3 Monocytes # (Auto) 0.4 0.0-1.0 X 10^3 Eosinophils # (Auto) 0.1 0.0-0.3 10^3/uL Basophils # (Auto) 0.0 0.0-0.1 10^3/uL Prothrombin Time 13.3 12.2-14.7 SEC INR Comment 1.0 0.8-1.4 Activated Partial Thromboplast Time 28 24-35 SEC Sodium Level 141 135-145 MMOL/L Potassium Level 3.5 L 3.6-5.0 MMOL/L Chloride Level 103 98-107 MMOL/L Carbon Dioxide Level 17 L 21-32 MMOL/L Anion Gap 21 H 5-14 MMOL/L Blood Urea Nitrogen 10 7-18 MG/DL Creatinine 0.81 0.60-1.30 MG/DL Estimat Glomerular Filtration Rate > 60 BUN/Creatinine Ratio 12 Glucose Level 88 70-105 MG/DL Calcium Level 9.6 8.5-10.1 MG/DL Corrected Calcium 9.2 8.5-10.1 MG/DL Magnesium Level 1.7 1.6-2.4 MG/DL Total Bilirubin 0.8 0.1-1.0 MG/DL Aspartate Amino Transf (AST/SGOT) 104 H 5-34 U/L Alanine Aminotransferase (ALT/SGPT) 57 H 0-55 U/L Alkaline Phosphatase 89 40-136 U/L Troponin I < 0.028 <0.028 NG/ML Total Protein 7.7 6.4-8.2 GM/DL Albumin 4.5 3.2-4.5 GM/DL Amylase Level 64 25-125 U/L Lipase 38 8-78 U/L Serum Alcohol 87 H <10 MG/DL Urine Color YELLOW Urine Clarity CLEAR Urine pH 5.5 5-9 Urine Specific [place] <=1.005 1.016-1.022 Urine Protein NEGATIVE NEGATIVE Urine Glucose (UA) NEGATIVE NEGATIVE Urine Ketones TRACE H NEGATIVE Urine Nitrite NEGATIVE NEGATIVE Urine Bilirubin NEGATIVE NEGATIVE Urine Urobilinogen 0.2 < = 1.0 MG/DL Urine Leukocyte Esterase NEGATIVE NEGATIVE Urine RBC (Auto) NEGATIVE NEGATIVE Urine RBC NONE /HPF Urine WBC NONE /HPF Urine Crystals NONE /LPF Urine Bacteria NEGATIVE /HPF Urine Casts NONE /LPF Urine Mucus NEGATIVE /LPF Urine Culture Indicated NO Urine Opiates Screen NEGATIVE NEGATIVE Urine Oxycodone Screen NEGATIVE NEGATIVE Urine Methadone Screen NEGATIVE NEGATIVE Urine Propoxyphene Screen NEGATIVE NEGATIVE Urine Barbiturates Screen NEGATIVE NEGATIVE Ur Tricyclic Antidepressants Screen NEGATIVE NEGATIVE Urine Phencyclidine Screen NEGATIVE NEGATIVE Urine Amphetamines Screen NEGATIVE NEGATIVE Urine Methamphetamines Screen NEGATIVE NEGATIVE Urine Benzodiazepines Screen NEGATIVE NEGATIVE Urine Cocaine Screen NEGATIVE NEGATIVE Urine Cannabinoids Screen NEGATIVE NEGATIVE My Orders Orders - ELLIOT FELIX DO Ed Iv/Invasive Line Start (12/02/19 06:53) Ekg Tracing (12/02/19 06:53) Monitor-Rhythm Ecg Trace Only (12/02/19 06:53) Ondansetron Injection (Zofran Injectio (12/02/19 07:00) Amylase (12/02/19 06:53) Cbc With Automated Diff (12/02/19 06:53) Comprehensive Metabolic Panel (12/02/19 06:53) Lipase (12/02/19 06:53) Magnesium (12/02/19 06:53) Protime With Inr (12/02/19 06:53) Partial Thromboplastin Time (12/02/19 06:53) Ua Culture If Indicated (12/02/19 06:53) Troponin I (12/02/19 06:53) Ed Iv/Invasive Line Start (12/02/19 06:53) Lactated Ringers (Lr 1000 Ml Iv Solution (12/02/19 06:53) Pantoprazole Injection (Protonix Injecti (12/02/19 07:00) Alcohol (12/02/19 07:04) Drug Screen Stat (Urine) (12/02/19 07:04) Promethazine Injection (Phenergan Injec (12/02/19 07:45) Diphenhydramine Injection (Benadryl Inje (12/02/19 07:45) Ct Chest/Abdomen/Pelvis W (12/02/19 07:45) Iohexol Injection (Omnipaque 350 Mg/Ml 1 (12/02/19 08:00) Received Contrast (Hold Metformin- Contr (12/02/19 08:00) Ns (Ivpb) (Sodium Chloride 0.9% Ivpb Bag (12/02/19 08:00) Ed Iv/Invasive Line Start (12/02/19 08:03) Lactated Ringers (Lr 1000 Ml Iv Solution (12/02/19 08:03) Promethazine Injection (Phenergan Injec (12/02/19 09:45) Diphenhydramine Injection (Benadryl Inje (12/02/19 09:45) Fentanyl Injection (Sublimaze Injection (12/02/19 10:46) Benzocaine Extension Tube (Hurricaine Ex (12/02/19 10:54) Catheter(Urinary) Insert & Ass 03,15 (12/02/19 11:37) Ondansetron Injection (Zofran Injectio (12/02/19 12:15) Scopolamine Patch (Transderm-Scop Patch) (12/02/19 14:30) Promethazine Injection (Phenergan Injec (12/02/19 14:30) Medications Given in ED Current Medications Medications Dose Ordered Sig/Zacarias Route Start Time Stop Time Status Last Admin Dose Admin Benzocaine 1 ea STK-MED ONCE .ROUTE 12/02/19 10:54 12/02/19 10:58 DC 12/02/19 11:00 1 EA Diphenhydramine HCl 25 mg ONCE ONCE IVP 12/02/19 09:45 12/02/19 09:46 DC 12/02/19 09:59 25 MG Diphenhydramine HCl 50 mg ONCE ONCE IVP 12/02/19 07:45 12/02/19 07:46 DC 12/02/19 07:49 50 MG Iohexol 100 ml ONCE ONCE IV 12/02/19 08:00 12/02/19 08:01 DC 12/02/19 08:10 100 ML Lactated Ringer's 1,000 ml @ 0 mls/hr Q0M ONCE IV 12/02/19 08:03 12/02/19 08:04 DC 12/02/19 08:21 1,000 MLS/HR Ondansetron HCl 8 mg ONCE ONCE IVP 12/02/19 07:00 12/02/19 07:01 DC 12/02/19 07:00 8 MG Ondansetron HCl 8 mg ONCE ONCE IVP 12/02/19 12:15 12/02/19 12:17 DC 12/02/19 12:19 8 MG Pantoprazole 40 mg ONCE ONCE IV 12/02/19 07:00 12/02/19 07:01 DC 12/02/19 07:14 40 MG Promethazine HCl 25 mg ONCE ONCE IVP 12/02/19 07:45 12/02/19 07:46 DC 12/02/19 07:49 25 MG Promethazine HCl 25 mg ONCE ONCE IVP 12/02/19 09:45 12/02/19 09:46 DC 12/02/19 09:59 25 MG Promethazine HCl 25 mg ONCE ONCE IVP 12/02/19 14:30 12/02/19 14:31 DC 12/02/19 14:22 25 MG Scopolamine 1.5 mg ONCE ONCE TD 12/02/19 14:30 12/02/19 14:31 DC 12/02/19 14:22 1.5 MG Sodium Chloride 100 ml ONCE ONCE IV 12/02/19 08:00 12/02/19 08:01 DC 12/02/19 08:10 80 ML Vital Signs/I&O 12/02/19 06:52 Temp 36.1 Pulse 96 Resp 20 B/P (MAP) 166/108 (127) Pulse Ox 93 O2 Delivery Room Air Progress Progress Note : Progress Note INCREASING AGITATION, CONFUSION, TREMULOUSNESS, BUT THIS SEEMED TO BE MORE NOTABLE AFTER GIVEN PHENERGAN AND BENADRYL FOR PERSISTENT NAUSEA/VOMITING/DRY HEAVING GIVEN MULTIPLE MEDICATIONS FOR NAUSEA/VOMITING PT EXTREMELY UNCOOPERATIVE FOR NG TUBE PLACEMENT, AND UNSUCCESSFUL DESPITE MULT IPLE ATTEMPTS Initial ECG Impression Date: Dec 02, 2019 Initial ECG Impression Time: 07:02 Initial ECG Rate: 97 Initial ECG Rhythm: Normal Sinus Initial ECG Impression: Nonspecific Changes Diagnostic Imaging Comments PER RADIOLOGIST REPORT AT 0851 CT CHEST/ABDOMEN/PELVIS- CT CHEST: No axillary, hilar or mediastinal lymphadenopathy detected. No pericardial or pleural fluid is identified. The lungs appear clear. No infiltrate, nodule or mass is detected. IMPRESSION: Unremarkable CT of the chest. CT ABDOMEN AND PELVIS: Liver demonstrates diffuse low density consistent with hepatic steatosis. No discrete liver mass is detected. Gallbladder is unremarkable. There is no biliary ductal dilatation. The pancreas and spleen are unremarkable. No adrenal mass is detected. Kidneys are unremarkable. No hydronephrosis. Aorta is calcified but non-aneurysmal. There are some mild to moderately dilated and fluid-filled small bowel loops throughout the abdomen. There does appear to be some transition distally and features are concerning for small bowel obstruction. The colon is decompressed. There is no free fluid or fluid collection identified. The bladder is unremarkable. There are postsurgical changes involving the lower anterior abdominal wall. Bony structures demonstrate postop changes of a posterior instrumented fusion at L4-S1 levels. IMPRESSION: 1. Hepatic steatosis. 2. Moderately dilated fluid-filled small bowel loops throughout the abdomen with potential transition distally, raising concern for small bowel obstruction. No free air or abscess formation is identified. No other significant abnormalities identified. Reviewed: Reviewed by Me Departure Communication (Admissions) [id number]--DISCUSSED WITH DR. MITTAL HERE IN ER, SURGEON [employer] TENDER. [id number]--SPOKE WITH DR. MITTAL AGAIN, HE ADVISES TO ADMIT TO HOSPITALIST, AND HE WILL SEE PT IN CONSULT. ORDERS NOTED 1045--SPOKE WITH DR. COX, HOSPITALIST, ACCEPTS PT FOR ADMIT Impression Primary Impression: Small bowel obstruction Additional Impression: Alcoholism Disposition: 09 ADMITTED INPATIENT Condition: Stable Admissions Decision to Admit Reason: Admit from ER (General) Decision to Admit/Date: Dec 02, 2019 Time/Decision to Admit Time: 10:40 Departure-Patient Inst. Referrals: MAXIMILIAN HERRERA MD (PCP/Family) Primary Care Physician ELLIOT FELIX DO Dec 02, 2019 07:05
[2019-12-02 07:13] LABS: BASOPHILS % (AUTO) 0 % (0-10); EOSINOPHILS # (AUTO) 0.1 10^3/uL (0.0-0.3); EOSINOPHILS % (AUTO) 2 % (0-10); HEMATOCRIT 36 % (40-54); HEMOGLOBIN 12.8 G/DL (13.3-17.7); LYMPHOCYTES # (AUTO) 1.2 X 10^3 (1.0-4.0); LYMPHOCYTES % (AUTO) 25 % (12-44); MEAN CORPUSCULAR HEMOGLOBIN 40 PG (25-34); MEAN CORPUSCULAR HGB CONC 36 G/DL (32-36); MEAN CORPUSCULAR VOLUME 113 FL (80-99); MEAN PLATELET VOLUME 8.9 FL (7.4-10.4); MONOCYTES # (AUTO) 0.4 X 10^3 (0.0-1.0); MONOCYTES % (AUTO) 9 % (0-12); NEUTROPHILS # (AUTO) 3.2 X 10^3 (1.8-7.8); NEUTROPHILS % (AUTO) 65 % (42-75); PLATELET COUNT 183 10^3/uL (130-400); WHITE BLOOD COUNT 4.9 10^3/uL (4.3-11.0)
[2019-12-02 07:24] LABS: ALBUMIN 4.5 GM/DL (3.2-4.5); CHLORIDE 103 MMOL/L (98-107); POTASSIUM 3.5 MMOL/L (3.6-5.0); SODIUM 141 MMOL/L (135-145)
[2019-12-02 07:25] LABS: AMYLASE 64 U/L (25-125); CALCIUM 9.6 MG/DL (8.5-10.1)
[2019-12-02 07:26] LABS: GLUCOSE 88 MG/DL (70-105); TOTAL PROTEIN 7.7 GM/DL (6.4-8.2)
[2019-12-02 07:27] LABS: CARBON DIOXIDE 17 MMOL/L (21-32); PROTHROMBIN TIME PATIENT 13.3 SEC (12.2-14.7)
[2019-12-02 07:28] LABS: BILIRUBIN,TOTAL 0.8 MG/DL (0.1-1.0)
[2019-12-02 07:30] LABS: ALKALINE PHOSPHATASE 89 U/L (40-136); CREATININE SERUM 0.81 MG/DL (0.60-1.30); GFR ESTIMATED > 60
[2019-12-02 07:31] LABS: BUN/CREATININE RATIO 12
[2019-12-02 07:33] LABS: ALANINE AMINOTRANSFERASE 57 U/L (0-55); MAGNESIUM 1.7 MG/DL (1.6-2.4)
[2019-12-02 07:34] LABS: LIPASE 38 U/L (8-78)
[2019-12-02] MEDS ORDERED: PROMETHAZINE INJ 25 MG/ML (PHENERGAN) AMP IVP ONE ×3 (07:45→14:30)
[2019-12-02] MEDS ORDERED: diphenhydrAMINE 50 MG/ML INJ (BENADRYL) IVP ONE ×2 (07:45→09:45)
[2019-12-02] MEDS ORDERED: HOLD METFORMIN - RECEIVED CONTRAST 20 ML VIAL IV SCH (08:00)
[2019-12-02] MEDS ORDERED: IOHEXOL 350 MG/ML 100 ML (OMNIPAQUE 350) VIAL IV ONE (08:00)
[2019-12-02] MEDS ORDERED: NS 100 ML (IVPB) BAG IV ONE (08:00)
--- NOTE | 2019-12-02 08:43 | Diagnostic Imaging Report ---
PROCEDURE: CT chest, abdomen, and pelvis with contrast. TECHNIQUE: Multiple contiguous axial images were obtained through the chest, abdomen, and pelvis after the administration of intravenous contrast. Auto Exposure Controls were utilized during the CT exam to meet ALARA standards for radiation dose reduction. INDICATION: Epigastric pain. Correlation is made with prior CT abdomen and pelvis from 08/09/2019. CT CHEST: No axillary, hilar or mediastinal lymphadenopathy detected. No pericardial or pleural fluid is identified. The lungs appear clear. No infiltrate, nodule or mass is detected. IMPRESSION: Unremarkable CT of the chest. CT ABDOMEN AND PELVIS: Liver demonstrates diffuse low density consistent with hepatic steatosis. No discrete liver mass is detected. Gallbladder is unremarkable. There is no biliary ductal dilatation. The pancreas and spleen are unremarkable. No adrenal mass is detected. Kidneys are unremarkable. No hydronephrosis. Aorta is calcified but non-aneurysmal. There are some mild to moderately dilated and fluid-filled small bowel loops throughout the abdomen. There does appear to be some transition distally and features are concerning for small bowel obstruction. The colon is decompressed. There is no free fluid or fluid collection identified. The bladder is unremarkable. There are postsurgical changes involving the lower anterior abdominal wall. Bony structures demonstrate postop changes of a posterior instrumented fusion at L4-S1 levels. IMPRESSION: 1. Hepatic steatosis. 2. Moderately dilated fluid-filled small bowel loops throughout the abdomen with potential transition distally, raising concern for small bowel obstruction. No free air or abscess formation is identified. No other significant abnormalities identified. Dictated by: Dictated on workstation # [id number]
[2019-12-02 09:44] LABS: BILIRUBIN,URINE NEGATIVE (NEGATIVE); CLARITY,URINE CLEAR; COLOR,URINE YELLOW; GLUCOSE, URINE (UA) NEGATIVE (NEGATIVE); KETONES,URINE TRACE (NEGATIVE); LEUKOCYTE ESTERASE ,URINE NEGATIVE (NEGATIVE); NITRITE,URINE NEGATIVE (NEGATIVE); PH,URINE 5.5 (5-9); PROTEIN,URINE NEGATIVE (NEGATIVE)
[2019-12-02 09:54] LABS: BACTERIA,URINE NEGATIVE /HPF
[2019-12-02 10:01] LABS: AMPHETAMINE SCREEN, URINE NEGATIVE (NEGATIVE); BARBITURATE SCREEN URINE NEGATIVE (NEGATIVE); BENZODIAZEPINES SCREEN URINE NEGATIVE (NEGATIVE); CANNABINOID SCREEN, URINE NEGATIVE (NEGATIVE); COCAINE SCREEN URINE NEGATIVE (NEGATIVE); METHADONE STAT NEGATIVE (NEGATIVE); METHAMPHETAMINE SCREEN URINE S NEGATIVE (NEGATIVE); OPIATE SCREEN URINE NEGATIVE (NEGATIVE); OXYCODONE STAT NEGATIVE (NEGATIVE); PROPOXYPHENE STAT NEGATIVE (NEGATIVE); TRICYCLIC ANTIDEPRESSANTS SCRE NEGATIVE (NEGATIVE)
[2019-12-02] MEDS ORDERED: fentaNYL INJECTION 100 MCG/2 ML AMP IVP STA (10:46)
[2019-12-02] MEDS ORDERED: HURRICAINE EXT TUBE (BENZOCAINE) ONE (10:54)
[2019-12-02] MEDS ORDERED: SCOPOLAMINE 1.5 MG (TRANSDERM-SCOP) PATCH TD ONE (14:30)
[2019-12-02] MEDS ORDERED: diphenhydrAMINE 50 MG/ML INJ (BENADRYL) IVP PRN (15:15)
[2019-12-02] MEDS ORDERED: fentaNYL INJECTION 100 MCG/2 ML AMP IVP PRN (15:15)
[2019-12-02] MEDS ORDERED: 1/2 NS IV SOLUTION 1,000 ML IV PRN (15:16)
[2019-12-02] MEDS ORDERED: ANTACID SUSP 30 ML UDC (MYLANTA) PO PRN (15:30)
[2019-12-02] MEDS ORDERED: SENNA W/DOCUSATE (SENOKOT S) TABLET PO PRN (15:30)
[2019-12-02] MEDS ORDERED: ONDANSETRON 4 MG/2 ML (SDV) Z0FRAN IV PRN (15:30)
[2019-12-02] MEDS ORDERED: D5 1/2 NS 1000 ML IV SOLUTION 1,000 ML IV PRN (15:30)
[2019-12-02] MEDS ORDERED: ONDANSETRON 4 MG (ZOFRAN) ORAL DISSOLVE TAB SL PRN (15:30)
[2019-12-02] MEDS ORDERED: LORazepam INJ 2 MG/ML (ATIVAN) VIAL IM/IV PRN (15:30)
[2019-12-02] MEDS ORDERED: LORazepam 1 MG (ATIVAN) TAB PO PRN (15:30)
[2019-12-02] MEDS: D5 1/2 NS W/KCL 20 MEQ/L 1,000 ML IV SCH (15:48)
--- NOTE | 2019-12-02 16:00 | NUR ---
SURI GARCIA admitted to room 409-1, with an admitting diagnosis of small bowel obstruction, on 12/02/19 from [place] [facility] via stretcher, accompanied by staff. SURI GARCIA introduced to surroundings, call light, bed controls, phone, TV, temperature control, lights, meal times, smoking policy, visitor policy, side rail policy, bathrooms and showers. Patient Rights given to patient in the handbook. SURI GARCIA verbalizes understanding that [facility] is not responsible for the loss or damage to any personal effects or valuables that are kept in the patients possession during their hospitalization. The following Patient Care Plans were discussed with the patient: Discharge Planning, pain management, dehydration, and medications. SURI GARCIA verbalizes understanding of Interdisciplinary Patient Education. Patient and/or family were informed about the Rapid Response Team and its purpose.
[2019-12-02 16:03] VITALS: BP 155/93
[2019-12-02] MEDS: THIAMINE INJECTION 100 MG, FOLIC ACID INJECTION 1 MG, MAGNESIUM SULFATE 2 GM, VITAMIN M... IV SCH ×10 (16:08→22:45)
--- NOTE | 2019-12-02 16:09 | Diagnostic Imaging Report ---
INDICATION: Evaluate tube placement. FINDINGS: The nasogastric tube has its tip just within the body of the stomach. Cardiomegaly and ectasia of the thoracic aorta. There are patchy bibasilar infiltrates. There is no pleural effusion or pneumothorax. Mediastinum is unremarkable. IMPRESSION: The nasogastric tube is just below the GE junction and could be advanced 5 cm. Cardiomegaly and ectasia of the thoracic aorta. Patchy bibasilar infiltrates. Dictated by: Dictated on workstation # [id number]
[2019-12-02] MEDS ORDERED: ONDANSETRON 4 MG/2 ML (SDV) Z0FRAN IVP PRN (16:15)
[2019-12-02] MEDS: LORazepam INJ 2 MG/ML (ATIVAN) VIAL IV PRN ×2 (16:19→17:31)
--- NOTE | 2019-12-02 17:18 | Consultation - Surgery ---
History of Present Illness History of Present Illness Patient Consulted On(yasmine/time) 12/02/19 17:13 Date Seen by Provider: Dec 02, 2019 Time Seen by Provider: 11:00 History of Present Illness Consult requested by Dr. Urbina for small bowel obstruction. Patient is a 68 year old male who is fatigued and not wanting to answer questions at this time. Patient has received some sedative medications. He was brought by EMS for epigastric abdominal pain. Patient having nausea and vomiting. His nausea and vomiting is under control at this time. He has had previous abdominal surgeries. No family at bedside. Patient had ct scan abd/pelvi : 1. Hepatic steatosis. 2. Moderately dilated fluid-filled small bowel loops throughout the abdomen with potential transition distally, raising concern for small bowel obstruction. No free air or abscess formation is identified. No other significant abnormalities identified. Allergies and Home Medications Allergies Coded Allergies: No Known Drug Allergies (Unverified , 04/11/11) Home Medications Bupropion Hcl 150 Mg Tablet, 150 MG PO BID, (Reported) Diclofenac Sod 100 Gm Gel, 1 EACH TOP NEEDED, (Reported) Hydrocodone Bit/Acetaminophen 1 Tab Tablet, 1 EACH PO Q 4 - 6 HRS PRN, (Reported) Hydrocodone Bit/Acetaminophen 1 Each Tablet, 1 EACH PO Q4H PRN for PAIN-MODERATE TO SEVERE Prescribed by: NI CANTRELL on 08/25/17 1547 Hydromorphone Hcl 1 Mg/1 Ml Liquid, 2 MG PO Q4H, (Reported) Rabeprazole Sodium 20 Mg Tablet.dr, 5 MG PO DAILY, (Reported) Trazodone Hcl 100 Mg Tab, 100 MG PO HS, (Reported) 100-300 MG PRN HS Zolpidem Tartrate 10 Mg Tablet, 10 MG PO HS, (Reported) Patient Home Medication List Home Medication List Reviewed: Yes Past Yilriqp-Ifatxc-Mfyoox Hx Patient Social History Alcohol Use: Regular Use (AT LEAST A PINT OF RUM A DAY) Number of Drinks Today: DD Recreational Drug Use: No (smokes 1/2-1 ppd) Smoking Status: Current Everyday Smoker (2 PPD) Type Used: Cigarettes (2 PPD) 2nd Hand Smoke Exposure: Yes Recent Foreign Travel: No Contact w/Someone Who Travel: No Recent Infectious Disease Expo: No Immunizations Up To Date Tetanus Booster (TDap): Unknown Date of Influenza Vaccine: Dec 14, 2010 Seasonal Allergies Seasonal Allergies: No Surgeries History of Surgeries: Yes (IVANNA INGUINAL HERNIA REPAIR;BACK SURGERY X 2-ANT & POST APPROACH;R ROT CUFF) Surgeries: Abdominal, Orthopedic Respiratory History of Respiratory Disorde: Yes (tobaccoism) Cardiovascular History of Cardiac Disorders: No Neurological History of Neurological Disord: No Reproductive System Hx Reproductive Disorders: No Sexually Transmitted Disease: No Genitourinary History of Genitourinary Disor: Yes (LITHOTRIPSY 2011) Genitourinary Disorders: Kidney Stones Gastrointestinal History of Gastrointestinal Di: Yes (LEFT INGUINAL HERNIA REPAIR;GASTRITIS) Gastrointestinal Disorders: Abdominal Hernia, Gastroesophageal Reflux, Chronic Constipation, Polyps, Ulcer Musculoskeletal History of Musculoskeletal Dis: Yes (BACK SURGERY X 2) Musculoskeletal Disorders: Degenerate Disk Disease, Arthritis, Chronic Back Pain Endocrine History of Endocrine Disorders: No HEENT History of HEENT Disorders: No Loss of Vision: Denies Cancer History of Cancer: Yes (BASAL CELL) Cancer: Skin Psychosocial History of Psychiatric Problem: Yes (alcohol dependence) Behavioral Health Disorders: Depression Reviewed Nursing Assessment Reviewed/Agree w Nursing PMH: Yes Family Medical History Significant Family History: No Pertinent Family Hx Review of Systems-General ROS-Unable to Obtain: patient fatigued secondary to medications received unable to provide Physical Exam-General Problems Physical Exam Vital Signs Vital Signs - First Documented 12/02/19 06:52 Temp 36.1 Pulse 96 Resp 20 B/P (MAP) 166/108 (127) Pulse Ox 93 O2 Delivery Room Air Capillary Refill : Less Than 3 Seconds General Appearance: no apparent distress, other (fatigued) HEENT: PERRL/EOMI, normal ENT inspection Neck: non-tender, supple Respiratory: chest non-tender, no respiratory distress, no accessory muscle use Cardiovascular: regular rate, rhythm, no JVD Gastrointestinal: distended, tenderness (minimal epigastric area) Rectal: deferred Back: no CVA tenderness, no vertebral tenderness Extremities: non-tender, no pedal edema, no calf tenderness Neurologic/Psychiatric: No oriented x 3; other (arousable and partially answers some questions, fatigued) Skin: normal color, warm/dry Lymphatic: no adenopathy Data Review Labs Laboratory Tests 12/02/19 06:55: White Blood Count 4.9, Red Blood Count 3.19L, Hemoglobin 12.8L, Hematocrit 36L, Mean Corpuscular Volume 113H, Mean Corpuscular Hemoglobin 40H, Mean Corpuscular Hemoglobin Concent 36, Red Cell Distribution Width 16.8H, Platelet Count 183, Mean Platelet Volume 8.9, Neutrophils (%) (Auto) 65, Lymphocytes (%) (Auto) 25, Monocytes (%) (Auto) 9, Eosinophils (%) (Auto) 2, Basophils (%) (Auto) 0, Neutrophils # (Auto) 3.2, Lymphocytes # (Auto) 1.2, Monocytes # (Auto) 0.4, Eosinophils # (Auto) 0.1, Basophils # (Auto) 0.0, Prothrombin Time 13.3, INR Comment 1.0, Activated Partial Thromboplast Time 28, Sodium Level 141, Potassium Level 3.5L, Chloride Level 103, Carbon Dioxide Level 17L, Anion Gap 21H, Blood Urea Nitrogen 10, Creatinine 0.81, Estimat Glomerular Filtration Rate > 60, BUN/Creatinine Ratio 12, Glucose Level 88, Calcium Level 9.6, Corrected Calcium 9.2, Magnesium Level 1.7, Total Bilirubin 0.8, Aspartate Amino Transf (AST/SGOT) 104H, Alanine Aminotransferase (ALT/SGPT) 57H, Alkaline Phosphatase 89, Troponin I < 0.028, Total Protein 7.7, Albumin 4.5, Amylase Level 64, Lipase 38, Serum Alcohol 87H 12/02/19 09:30: Urine Color YELLOW, Urine Clarity CLEAR, Urine pH 5.5, Urine Specific [place] <=1.005, Urine Protein NEGATIVE, Urine Glucose (UA) NEGATIVE, Urine Ketones TRACEH, Urine Nitrite NEGATIVE, Urine Bilirubin NEGATIVE, Urine Urobilinogen 0.2, Urine Leukocyte Esterase NEGATIVE, Urine RBC (Auto) NEGATIVE, Urine RBC NONE, Urine WBC NONE, Urine Crystals NONE, Urine Bacteria NEGATIVE, Urine Casts NONE, Urine Mucus NEGATIVE, Urine Culture Indicated NO, Urine Opiates Screen NEGATIVE, Urine Oxycodone Screen NEGATIVE, Urine Methadone Screen NEGATIVE, Urine Propoxyphene Screen NEGATIVE, Urine Barbiturates Screen NEGATIVE, Ur Tricyclic Antidepressants Screen NEGATIVE, Urine Phencyclidine Screen NEGATIVE, Urine Amphetamines Screen NEGATIVE, Urine Methamphetamines Screen NEGATIVE, Urine Benzodiazepines Screen NEGATIVE, Urine Cocaine Screen NEGATIVE, Urine Cannabinoids Screen NEGATIVE Assessment/Plan Assessment/Plan Assessment/Plan epigastric abdominal pain nausea vomiting small bowel obstruction etoh chronic use ng tube to liws small bowel follow through in am conservative measures alcohol withdrawal measures no surgical intervention at this time will follow Clinical Quality Measures DVT/VTE Risk/Contraindication: Risk Factor Score Per Nursin RFS Level Per Nursing on Admit: 2=Moderate ZHANNA MITTAL DO Dec 02, 2019 17:18
[2019-12-02 17:38] VITALS: BP 155/93
--- NOTE | 2019-12-02 18:10 | History & Physical-Hospitalist ---
History of Present Illness HPI/Chief Complaint Deion Rivera is a 68-year-old male with past medical history of alcohol dependence, depression, who presented with abdominal pain. He is a poor historian. He says that he did have abdominal pain. He reports nausea and vomiting. He appears uncomfortable. He denies any fevers. He denies any shortness of breath or cough. He denies any bowel movements. Source: patient Date Seen 12/02/19 Time Seen by a Provider: 15:00 Attending Physician Fatimah Cox MD PCP Jadon Clifford MD Referring Physician Date of Admission Dec 02, 2019 at 14:37 Home Medications & Allergies Home Medications Reviewed patient Home Medication Reconciliation performed by pharmacy medication reconciliations data reduction technician and/or nursing. Patients Allergies have been reviewed. Allergies Allergies Coded Allergies No Known Drug Allergies (Unverified04/11/11) Past Yazsama-Wfqieh-Wwdoca Hx Past Med/Social Hx: Reviewed Nursing Past Med/Soc Hx Patient Social History Alcohol Use: Regular Use (AT LEAST A PINT OF RUM A DAY) Alcohol Beverage of Choice: Rum Recreational Drug Use: No (smokes 1/2-1 ppd) Smoking Status: Current Everyday Smoker (2 PPD) Type Used: Cigarettes (2 PPD) 2nd Hand Smoke Exposure: Yes Recent Foreign Travel: No Contact w/other who traveled: No Recent Infectious Disease Expo: No Immunizations Up To Date Tetanus Booster (TDap): Unknown Date of Influenza Vaccine: Dec 14, 2010 Seasonal Allergies Seasonal Allergies: No Past Medical History Surgeries: Abdominal, Orthopedic Reproductive: No Sexually Transmitted Disease: No Genitourinary: Kidney Stones Gastrointestinal: Abdominal Hernia, Gastroesophageal Reflux, Chronic Constipation, Polyps, Ulcer Musculoskeletal: Degenerate Disk Disease, Arthritis, Chronic Back Pain Loss of Vision: Denies Cancer: Skin Did You Recieve Any Treatments: Yes What Type of Treatment Did You: Surgical Intervention Psychosocial: Depression Family History No Pertinent Family Hx SOCIAL HISTORY: -DRINKS AT LEAST A PINT OF RUM A DAY -DENIES DRUG USE -SMOKES 2 PPD HAS BEEN ON DAILY DILAUDID IN PAST FOR BACK AND GENERALIZED PAIN, NOW ON TRAMADOL, OF 12/02/19 PSH: -BILATERAL INGUINAL HERNIA REPAIR -BACK SURGERY X 2--ANTERIOR AND POSTERIOR APPROACH--L4-5 LAMINECTOMY;L5-S1 FUSION -RIGHT SHOULDER ROTATOR CUFF REPAIR -EGD 2008--GASTRITIS -COLONOSCOPY--2011--POLYPECTOMY -LITHOTRIPSY 2012 -RIGHT KNEE SCOPE -REMOVAL OF BASAL CELL SKIN CANCER Review of Systems Constitutional: no symptoms reported EENTM: no symptoms reported Respiratory: no symptoms reported Cardiovascular: no symptoms reported Gastrointestinal: abdominal pain, nausea, vomiting Genitourinary: no symptoms reported Musculoskeletal: no symptoms reported Skin: no symptoms reported Psychiatric/Neurological: No Symptoms Reported Physical Exam Physical Exam Vital Signs Vital Signs - First Documented 12/02/19 06:52 Temp 36.1 Pulse 96 Resp 20 B/P (MAP) 166/108 (127) Pulse Ox 93 O2 Delivery Room Air Capillary Refill : Less Than 3 Seconds Height, Weight, BMI Height: 5'9.00" Weight: 175lbs. oz. 79.804145mw; 28.66 BMI Method:Stated General Appearance: Chronically ill, Mild Distress (uncomfortable) HEENT: PERRL/EOMI, Pharynx Normal Neck: Normal Inspection, Supple Respiratory: Lungs Clear, Normal Breath Sounds, No Respiratory Distress Cardiovascular: No Edema, No Murmur, Tachycardia (regular rhythm) Gastrointestinal: Soft, Abnormal Bowel Sounds (hypoactive), Distended, Tenderness Extremity: Normal Inspection, Non Tender, No Pedal Edema Neurologic/Psychiatric: Alert, Depressed Affect, Disoriented Skin: Normal Color, Warm/Dry Results Results/Procedures Labs Laboratory Tests 12/02/19 06:55 12/03/19 06:10 Patient resulted labs reviewed. Imaging: Reviewed Imaging Report Assessment/Plan Admission Diagnosis small bowel obstruction Admission Status: Inpatient Order (span 2 midnights) Reason for Inpatient Admission: SBO requiring inpatient management and possible surgical intervention Assessment and Plan Small bowel obstruction Abdominal pain Nausea and vomiting CT abdomen concerning for small bowel obstruction with possible distal transition point Nothing by mouth Place NG tube IV fluids Surgery consulted, appreciate assistance Antiemetics ordered Pain regimen ordered Alcohol dependence alcohol intoxication Demetia vs delirium EtOH 87 on arrival Reported daily drinker [place] protocol initiated social work consulted, appreciate assistance Smoker Nicotine patch as needed DVT prophylaxis: SCDs Diagnosis/Problems Diagnosis/Problems (1) Small bowel obstruction Status: Acute (2) Pancytopenia Status: Acute (3) Smoker Status: Chronic (4) Alcohol dependence Status: Acute (5) Alcoholism Status: Acute Clinical Quality Measures DVT/VTE Risk/Contraindication: Risk Factor Score Per Nursin RFS Level Per Nursing on Admit: 2=Moderate FATIMAH COX MD Dec 02, 2019 18:10
[2019-12-02] MEDS ORDERED: PROMETHAZINE INJ 25 MG/ML (PHENERGAN) AMP IVP PRN (18:30)
[2019-12-02 20:43] VITALS: BP 156/96
[2019-12-03 00:44] VITALS: BP 145/84
[2019-12-03] MEDS: D5 1/2 NS W/KCL 20 MEQ/L 1,000 ML IV SCH ×4 (00:57→18:04)
[2019-12-03] MEDS: LORazepam INJ 2 MG/ML (ATIVAN) VIAL IV PRN ×2 (04:32→21:51)
[2019-12-03] MEDS: THIAMINE INJECTION 100 MG, FOLIC ACID INJECTION 1 MG, MAGNESIUM SULFATE 2 GM, VITAMIN M... IV SCH ×5 (04:32)
[2019-12-03 04:33] VITALS: BP 152/87
[2019-12-03 06:40] LABS: BASOPHILS % (AUTO) 0 % (0-10); EOSINOPHILS % (AUTO) 1 % (0-10); HEMATOCRIT 35 % (40-54); HEMOGLOBIN 12.3 G/DL (13.3-17.7); LYMPHOCYTES # (AUTO) 0.6 X 10^3 (1.0-4.0); LYMPHOCYTES % (AUTO) 19 % (12-44); MEAN CORPUSCULAR HEMOGLOBIN 40 PG (25-34); MEAN CORPUSCULAR HGB CONC 35 G/DL (32-36); MEAN CORPUSCULAR VOLUME 115 FL (80-99); MEAN PLATELET VOLUME 9.4 FL (7.4-10.4); MONOCYTES # (AUTO) 0.4 X 10^3 (0.0-1.0); MONOCYTES % (AUTO) 11 % (0-12); NEUTROPHILS # (AUTO) 2.3 X 10^3 (1.8-7.8); NEUTROPHILS % (AUTO) 70 % (42-75); PLATELET COUNT 145 10^3/uL (130-400); WHITE BLOOD COUNT 3.3 10^3/uL (4.3-11.0)
[2019-12-03 06:48] LABS: ALBUMIN 4.1 GM/DL (3.2-4.5); CHLORIDE 98 MMOL/L (98-107); POTASSIUM 3.6 MMOL/L (3.6-5.0); SODIUM 134 MMOL/L (135-145)
[2019-12-03 06:49] LABS: CALCIUM 8.8 MG/DL (8.5-10.1)
[2019-12-03 06:50] LABS: GLUCOSE 124 MG/DL (70-105); TOTAL PROTEIN 6.8 GM/DL (6.4-8.2)
[2019-12-03 06:51] LABS: CARBON DIOXIDE 25 MMOL/L (21-32)
[2019-12-03 06:52] LABS: BILIRUBIN,TOTAL 0.9 MG/DL (0.1-1.0)
[2019-12-03 06:54] LABS: ALKALINE PHOSPHATASE 73 U/L (40-136); CREATININE SERUM 0.73 MG/DL (0.60-1.30); GFR ESTIMATED > 60
[2019-12-03 06:55] LABS: BUN/CREATININE RATIO 11
[2019-12-03 06:57] LABS: ALANINE AMINOTRANSFERASE 41 U/L (0-55)
--- NOTE | 2019-12-03 07:05 | Diagnostic Imaging Report ---
INDICATION: Evaluate tube placement. Comparison made with prior examination of 12/02/2019. FINDINGS: The nasogastric tube has its tip in the body of the stomach. There is ectasia of the thoracic aorta. There are patchy bibasilar infiltrates left greater than right. There is no pleural effusion or pneumothorax. Mediastinum is unremarkable. IMPRESSION: Patchy bibasilar infiltrates left greater than right. The nasogastric tube has its tip in the body of the stomach. Dictated by: Dictated on workstation # [id number]
[2019-12-03 07:20] VITALS: BP 153/89
[2019-12-03] MEDS ORDERED: PANTOPRAZOLE 40 MG (PROTONIX) VIAL IV SCH (09:00)
--- NOTE | 2019-12-03 09:31 | Progress Note - Surgery ---
SAMIA ZAIDI MED STUDENT 12/03/19 0931: Subjective Date Seen by a Provider: Dec 03, 2019 Time Seen by a Provider: 08:00 Subjective/Events-last exam Deion is a poor historian. States he has a bilateral frontal headache, similar to prior chronic headaches. complains of abdominal pain severity 10/10 as well as nausea. States he has had chronic issues with constipation since 13 years old, when he had to be on a "sippy" diet of only liquids. Denied worsening abdominal pain in the past several weeks, could not state when his nausea and vomiting started. Abdominal pain unaffected by palpation, denied worsening or alleviating factors. Denied prior abdominal surgeries. Could not articulate exactly how much alcohol he drinks in a day. Objective Exam Vital Signs Date Time Temp Pulse Resp B/P (MAP) Pulse Ox O2 Delivery O2 Flow Rate FiO2 12/03/19 07:20 36.9 98 16 153/89 (110) 92 Room Air 12/03/19 07:00 101 12/03/19 04:33 37.1 101 18 152/87 (108) 92 Room Air 12/03/19 01:00 105 12/03/19 00:44 36.6 100 18 145/84 (104) 92 Room Air 12/02/19 21:00 Room Air 12/02/19 20:43 36.2 98 18 156/96 (116) 92 Room Air 12/02/19 19:00 102 12/02/19 17:41 109 12/02/19 17:38 36.6 110 20 155/93 92 Room Air 12/02/19 16:03 36.6 110 20 155/93 (113) 92 Room Air 12/02/19 15:30 Room Air 12/02/19 14:42 36.8 87 17 150/101 96 Room Air l I & O 12/03/19 07:00 Intake Total 4015.2 ml Output Total 2800 ml Balance 1215.2 ml Capillary Refill : Less Than 3 Seconds General Appearance: No Apparent Distress, WD/WN HEENT: PERRL/EOMI, Pharynx Normal Neck: Normal Inspection, Non Tender Respiratory: Chest Non Tender, Lungs Clear, Normal Breath Sounds Cardiovascular: Regular Rate, Rhythm, No Edema, No Murmur Gastrointestinal: non tender, no organomegaly, no pulsatile mass, abnormal bowel sounds, distended (AND FIRM) Neurologic/Psychiatric: Alert, Other Results Lab Laboratory Tests 12/02/19 09:30: Urine Color YELLOW, Urine Clarity CLEAR, Urine pH 5.5, Urine Specific [place] <=1.005, Urine Protein NEGATIVE, Urine Glucose (UA) NEGATIVE, Urine Ketones TRACEH, Urine Nitrite NEGATIVE, Urine Bilirubin NEGATIVE, Urine Urobilinogen 0.2, Urine Leukocyte Esterase NEGATIVE, Urine RBC (Auto) NEGATIVE, Urine RBC NONE, Urine WBC NONE, Urine Crystals NONE, Urine Bacteria NEGATIVE, Urine Casts NONE, Urine Mucus NEGATIVE, Urine Culture Indicated NO, Urine Opiates Screen NEG ATIVE, Urine Oxycodone Screen NEGATIVE, Urine Methadone Screen NEGATIVE, Urine Propoxyphene Screen NEGATIVE, Urine Barbiturates Screen NEGATIVE, Ur Tricyclic Antidepressants Screen NEGATIVE, Urine Phencyclidine Screen NEGATIVE, Urine Amphetamines Screen NEGATIVE, Urine Methamphetamines Screen NEGATIVE, Urine Benzodiazepines Screen NEGATIVE, Urine Cocaine Screen NEGATIVE, Urine Deo abinoids Screen NEGATIVE 12/03/19 06:10: White Blood Count 3.3L, Red Blood Count 3.06L, Hemoglobin 12.3L, Hematocrit 35L, Mean Corpuscular Volume 115H, Mean Corpuscular Hemoglobin 40H, Mean Corpuscular Hemoglobin Concent 35, Red Cell Distribution Width 16.9H, Platelet Count 145, Mean Platelet Volume 9.4, Neutrophils (%) (Auto) 70, Lymphocytes (%) (Auto) 19, Monocytes (%) (Auto) 11, Eosinophils (%) (Auto) 1, Basophils (%) (Auto) 0, Neutrophils # (Auto) 2.3, Lymphocytes # (Auto) 0.6L, Monocytes # (Auto) 0.4, Eosinophils # (Auto) 0.0, Basophils # (Auto) 0.0, Sodium Level 134L, Potassium Level 3.6, Chloride Level 98, Carbon Dioxide Level 25, Anion Gap 11, Blood Urea Nitrogen 8, Creatinine 0.73, Estimat Glomerular Filtration Rate > 60, BUN/Creatinine Ratio 11, Glucose Level 124H, Calcium Level 8.8, Corrected Calcium 8.7, Total Bilirubin 0.9, Aspartate Amino Transf (AST/SGOT) 55H, Alanine Aminotransferase (ALT/SGPT) 41, Alkaline Phosphatase 73, Total Protein 6.8, Albumin 4.1 Assessment/Plan Assessment/Plan Assessment/Plan epigastric abdominal pain nausea vomiting small bowel obstruction etoh chronic use ng tube to liws in place small bowel follow through in am conservative measures alcohol withdrawal measures no surgical intervention at this time will follow Clinical Quality Measures DVT/VTE Risk/Contraindication: Risk Factor Score Per Nursin RFS Level Per Nursing on Admit: 2=Moderate ZHANNA CHANG DO 12/03/19 1610: Subjective Subjective/Events-last exam Patient with confusion. Does not give much information. Ng tube in and having small bowel follow through today. Contrast made into colon and no evidence of obstruction. No family at bedside. Objective Exam General Appearance: No Apparent Distress, WD/WN, Other (confused) HEENT: PERRL/EOMI, Other (ng tube) Neck: Normal Inspection, Non Tender Respiratory: Chest Non Tender, No Accessory Muscle Use, No Respiratory Distress Cardiovascular: Regular Rate, Rhythm, No JVD Gastrointestinal: non tender, distended (minimal) Extremity: Normal Inspection, Non Tender Neurologic/Psychiatric: Alert; No Oriented x3 Skin: Normal Color, Warm/Dry Lymphatic: No Adenopathy Assessment/Plan Assessment/Plan Assessment/Plan epigastric abdominal pain nausea vomiting small bowel obstruction etoh chronic use c confusion ng tube to liws in place will clamp since small bowel follow through this morning no obstruction if nauseated place ng tube back to liws conservative measures alcohol withdrawal measures no surgical intervention at this time will follow Supervisory-Addendum Brief Verification & Attestation Participated in pt care: history, MDM, physical Personally performed: exam, history, MDM, supervision of care Care discussed with: Medical Student Procedures: n/a Results interpretation: Verified all documentation Verification and Attestation of Medical Student E/M Service A medical student performed and documented this service in my presence. I reviewed and verified all information documented by the medical student and made modifications to such information, when appropriate. I personally performed the physical exam and medical decision making. Zhanna Chang, Dec 03, 2019,16:10 SAMIA ZAIDI MED STUDENT Dec 03, 2019 09:31 ZHANNA CHANG DO Dec 03, 2019 16:10
[2019-12-03 11:25] VITALS: BP 157/94
--- NOTE | 2019-12-03 11:29 | Diagnostic Imaging Report ---
INDICATIONS: Abdominal distention. FINDINGS: A single contrast Gastrografin small bowel series was performed via NG tube. Small bowel is of normal caliber throughout. No intrinsic or extrinsic masses. There is no evidence of obstruction. Contrast within the colon by 90 minutes. IMPRESSION: Unremarkable single contrast Gastrografin small bowel series. Dictated on workstation # [id number]
[2019-12-03] MEDS ORDERED: DIATRIZOATE MEGLUM/SODIUM 37% 120 ML (GASTROGRAFIN) NG ONE (11:45)
[2019-12-03] MEDS ORDERED: TRAM50TA3 PO (13:31)
[2019-12-03] MEDS ORDERED: RABE20TA27 PO (13:31)
[2019-12-03] MEDS ORDERED: NICOTINE 14 MG (NICODERM) PATCH TD PRN (13:45)
--- NOTE | 2019-12-03 13:50 | Progress Note - Hospitalist ---
Subjective HPI/CC On Admission Date Seen by Provider: Dec 03, 2019 Time Seen by Provider: 12:30 Deion Rivera is a 68-year-old male with past medical history of alcohol dependence, depression, who presented with abdominal pain. He is a poor historian. He says that he did have abdominal pain. He reports nausea and vomiting. He appears uncomfortable. He denies any fevers. He denies any shortness of breath or cough. He denies any bowel movements. Subjective/Events-last exam He remains confused this morning. He denies pain. He says he does feel nauseous. He has an NG tube in place. He denies any fevers. He denies any shortness of breath. Objective Exam Vital Signs Vital Signs Date Time Temp Pulse Resp B/P (MAP) Pulse Ox O2 Delivery O2 Flow Rate FiO2 12/03/19 12:33 113 12/03/19 11:25 36.5 22 157/94 (115) 94 Room Air Capillary Refill : Less Than 3 Seconds General Appearance: No Apparent Distress, Chronically ill Respiratory: Lungs Clear, Normal Breath Sounds, No Respiratory Distress Cardiovascular: Regular Rate, Rhythm, No Edema, No Murmur Gastrointestinal: Soft, Abnormal Bowel Sounds (hypoactive), Tenderness Extremity: Normal Inspection, Non Tender, No Pedal Edema Neurologic/Psychiatric: Alert, Oriented x3, No Motor/Sensory Deficits, Normal Mood/Affect Skin: Normal Color, Warm/Dry Results/Procedures Lab Laboratory Tests 12/03/19 06:10 Patient resulted labs reviewed. Imaging: Reviewed Imaging Report Assessment/Plan Assessment and Plan Assess & Plan/Chief Complaint Small bowel obstruction Abdominal pain Nausea and vomiting CT abdomen concerning for small bowel obstruction with possible distal transition point Nothing by mouth NG tube IV fluids Surgery consulted, appreciate assistance Antiemetics ordered Pain regimen ordered Alcohol dependence alcohol intoxication Demetia vs delirium EtOH 87 on arrival Reported daily drinker [facility] protocol initiated social work consulted, appreciate assistance Pancytopenia Likely due to alcohol use Check B12/folic acid levels started on vitamin regimen Smoker Nicotine patch as needed DVT prophylaxis: Lovenox Diagnosis/Problems Diagnosis/Problems (1) Small bowel obstruction Status: Acute (2) Pancytopenia Status: Acute (3) Smoker Status: Chronic (4) Alcohol dependence Status: Acute (5) Alcoholism Status: Acute Clinical Quality Measures DVT/VTE Risk/Contraindication: Risk Factor Score Per Nursin RFS Level Per Nursing on Admit: 2=Moderate BARBARA COX MD Dec 03, 2019 13:50
[2019-12-03] MEDS: ENOXAPARIN 40 MG/0.4 ML (LOVENOX) SYR SC SCH (15:13)
--- NOTE | 2019-12-03 16:14 | NUR ---
telephone orders to clamp NG tube at this time and restart suction if patient gets nauseous
[2019-12-03 16:30] VITALS: BP 160/90
[2019-12-03 20:00] VITALS: BP 148/90
[2019-12-03] MEDS: buPROPion SR 150 MG (WELLBUTRIN SR) TAB PO SCH (21:31)
[2019-12-04] VITALS: BP 155/98
[2019-12-04] MEDS: D5 1/2 NS W/KCL 20 MEQ/L 1,000 ML IV SCH ×4 (00:39→22:31)
[2019-12-04] MEDS: LORazepam INJ 2 MG/ML (ATIVAN) VIAL IV PRN ×7 (00:41→11:13)
[2019-12-04 04:44] VITALS: BP 156/94
--- NOTE | 2019-12-04 05:17 | NUR ---
Walked into pt room and noticed that pt already pulled his NG Tube out. Notified Dr. Clifford that NG Tube is out, received orders to leave it out for now.
--- NOTE | 2019-12-04 06:38 | NUR ---
CIWA Score and corresponding Ativan per protocol: 2100 - CIWA Score - 14 - 1mg Ativan given - Recheck in 1 hour 2315 - CIWA Score - 6 - None given - Recheck in 2 hours 0022 - CIWA Score - 9 - 1mg Ativan given - Recheck in 1 hour 0130 - CIWA Score - 4 - None given - Recheck in 2 hours 0250 - received call from video monitor that pt may have had a seizure but they are not sure. Went to pt room right away, no seizure noted. Pt is awake and alert, complained of headache, severe tremors and beads of sweats noted. CIWA Score - 12. 1mg Ativan given - Recheck in 1 hour 0430 - CIWA Score - 10 - 1mg Ativan given - Recheck in 1 hour 0530 - CIWA Score - 10 - 1mg Ativan given - Recheck in 1 hour 0630 - CIWA Score - 4 - None given - Will pass along to day shift previous CIWA score and CIWA schedule
[2019-12-04 08:02] VITALS: BP 143/80
[2019-12-04 08:24] LABS: BASOPHILS % (AUTO) 0 % (0-10); EOSINOPHILS # (AUTO) 0.1 10^3/uL (0.0-0.3); EOSINOPHILS % (AUTO) 1 % (0-10); HEMATOCRIT 35 % (40-54); HEMOGLOBIN 12.8 G/DL (13.3-17.7); LYMPHOCYTES # (AUTO) 1.1 X 10^3 (1.0-4.0); LYMPHOCYTES % (AUTO) 22 % (12-44); MEAN CORPUSCULAR HEMOGLOBIN 41 PG (25-34); MEAN CORPUSCULAR HGB CONC 37 G/DL (32-36); MEAN CORPUSCULAR VOLUME 113 FL (80-99); MONOCYTES # (AUTO) 0.6 X 10^3 (0.0-1.0); MONOCYTES % (AUTO) 12 % (0-12); NEUTROPHILS # (AUTO) 3.1 X 10^3 (1.8-7.8); NEUTROPHILS % (AUTO) 64 % (42-75); PLATELET COUNT 137 10^3/uL (130-400); WHITE BLOOD COUNT 4.8 10^3/uL (4.3-11.0)
[2019-12-04 08:36] LABS: ALBUMIN 4.1 GM/DL (3.2-4.5); CHLORIDE 100 MMOL/L (98-107); POTASSIUM 3.8 MMOL/L (3.6-5.0); SODIUM 135 MMOL/L (135-145)
[2019-12-04 08:37] LABS: CALCIUM 9.1 MG/DL (8.5-10.1)
[2019-12-04 08:38] LABS: GLUCOSE 96 MG/DL (70-105); TOTAL PROTEIN 6.9 GM/DL (6.4-8.2)
[2019-12-04 08:39] LABS: CARBON DIOXIDE 23 MMOL/L (21-32)
[2019-12-04 08:40] LABS: BILIRUBIN,TOTAL 0.8 MG/DL (0.1-1.0)
[2019-12-04 08:42] LABS: ALKALINE PHOSPHATASE 73 U/L (40-136); CREATININE SERUM 0.74 MG/DL (0.60-1.30); GFR ESTIMATED > 60; PHOSPHORUS 2.7 MG/DL (2.3-4.7)
[2019-12-04] MEDS: NICOTINE PATCH REMOVAL TP SCH (08:42)
[2019-12-04 08:43] LABS: BUN/CREATININE RATIO 8
[2019-12-04 08:45] LABS: ALANINE AMINOTRANSFERASE 29 U/L (0-55); MAGNESIUM 2.1 MG/DL (1.6-2.4)
[2019-12-04] MEDS: buPROPion SR 150 MG (WELLBUTRIN SR) TAB PO SCH ×2 (08:45→20:35)
[2019-12-04] MEDS: PANTOPRAZOLE 20 MG TABLET (PROTONIX) PO SCH (08:45)
--- NOTE | 2019-12-04 10:15 | Progress Note - Surgery ---
SAMIA ZAIDI MED STUDENT 12/04/19 1015: Subjective Date Seen by a Provider: Dec 04, 2019 Time Seen by a Provider: 08:00 Subjective/Events-last exam Deion is an unreliable historian. states his abdominal pain is decreased, unable to rate severity on 1 to 10 scale. Had 2 bms yesterday and says "maybe a little" blood in the stool. States is still nauseous, "the same" as yesterday. Small bowel follow through study had good movement yesterday. Deion denies fever, chills, chest pain. Objective Exam Vital Signs Date Time Temp Pulse Resp B/P (MAP) Pulse Ox O2 Delivery O2 Flow Rate FiO2 12/04/19 08:02 36.5 110 20 143/80 (101) 93 Room Air 12/04/19 08:00 Room Air 12/04/19 07:00 87 12/04/19 04:44 37.3 96 20 156/94 (114) 94 Room Air 12/04/19 01:00 96 12/04/19 00:00 37.0 96 18 155/98 (117) 95 Room Air 12/03/19 20:00 37.0 95 20 148/90 (109) 91 Room Air 12/03/19 20:00 Room Air 12/03/19 19:00 90 12/03/19 16:30 36.6 102 20 160/90 (113) 94 Room Air 12/03/19 12:33 113 12/03/19 11:25 36.5 110 22 157/94 (115) 94 Room Air I & O 12/04/19 07:00 Output Total 2400 ml Balance -2400 ml Capillary Refill : Less Than 3 Seconds General Appearance: No Apparent Distress, WD/WN, Other (confused) HEENT: PERRL/EOMI, Other (ng tube) Neck: Normal Inspection, Non Tender Respiratory: Chest Non Tender, No Accessory Muscle Use, No Respiratory Distress Cardiovascular: Regular Rate, Rhythm, No JVD Gastrointestinal: non tender, distended (minimal) Extremity: Normal Inspection, Non Tender Neurologic/Psychiatric: Alert; No Oriented x3 Skin: Normal Color, Diaphoresis (facial. Chest and abdomen dry.) Lymphatic: No Adenopathy Results Lab Laboratory Tests 12/04/19 08:18: White Blood Count 4.8, Red Blood Count 3.11L, Hemoglobin 12.8L, Hematocrit 35L, Mean Corpuscular Volume 113H, Mean Corpuscular Hemoglobin 41H, Mean Corpuscular Hemoglobin Concent 37H, Red Cell Distribution Width 16.1H, Platelet Count 137, Mean Platelet Volume 9.0, Neutrophils (%) (Auto) 64, Lymphocytes (%) (Auto) 22, Monocytes (%) (Auto) 12, Eosinophils (%) (Auto) 1, Basophils (%) (Auto) 0, Neutrophils # (Auto) 3.1, Lymphocytes # (Auto) 1.1, Monocytes # (Auto) 0.6, Eosinophils # (Auto) 0.1, Basophils # (Auto) 0.0, Sodium Level 135, Potassium Level 3.8, Chloride Level 100, Carbon Dioxide Level 23, Anion Gap 12, Blood Urea Nitrogen 6L, Creatinine 0.74, Estimat Glomerular Filtration Rate > 60, BUN/Creatinine Ratio 8, Glucose Level 96, Calcium Level 9.1, Corrected Calcium 9.0, Phosphorus Level 2.7, Magnesium Level 2.1, Total Bilirubin 0.8, Aspartate Amino Transf (AST/SGOT) 35H, Alanine Aminotransferase (ALT/SGPT) 29, Alkaline Phosphatase 73, Total Protein 6.9, Albumin 4.1 Assessment/Plan Assessment/Plan Assessment/Plan epigastric abdominal pain nausea vomiting small bowel obstruction etoh chronic use c confusion ng tube removed yesterday small bowel follow through yesterday no obstruction if vomits again, place ng tube back to [facility] conservative measures alcohol withdrawal measures no surgical intervention at this time will follow Clinical Quality Measures DVT/VTE Risk/Contraindication: Risk Factor Score Per Nursin RFS Level Per Nursing on Admit: 2=Moderate ZHANNA CHANG DO 12/04/19 1035: Subjective Subjective/Events-last exam Patient confused. Unable to provide much information. Pain seems to be improved. Having bowel movements. Fatigued. Denies n/v fever. Objective Exam General Appearance: No Apparent Distress, WD/WN, Other (confused) HEENT: PERRL/EOMI, TMs Normal, Normal ENT Inspection Neck: Full Range of Motion, Normal Inspection, Non Tender Respiratory: Chest Non Tender, No Accessory Muscle Use, No Respiratory Distress Cardiovascular: Regular Rate, Rhythm, No JVD Gastrointestinal: non tender; No distended, No guarding, No rebound, No tenderness Extremity: Normal Inspection, Non Tender Neurologic/Psychiatric: Alert; No Oriented x3; No Motor/Sensory Deficits Skin: Normal Color, Diaphoresis (facial. Chest and abdomen dry.) Lymphatic: No Adenopathy Assessment/Plan Assessment/Plan Assessment/Plan epigastric abdominal pain nausea vomiting small bowel obstruction etoh chronic use c confusion ng tube removed yesterday small bowel follow through yesterday no obstruction if vomits again, place ng tube back to liws conservative measures alcohol withdrawal measures no surgical intervention at this time will follow advance diet as tolerates Supervisory-Addendum Brief Verification & Attestation Participated in pt care: history, MDM, physical Personally performed: exam, history, MDM, supervision of care Care discussed with: Medical Student Procedures: n/a Results interpretation: Verified all documentation Verification and Attestation of Medical Student E/M Service A medical student performed and documented this service in my presence. I reviewed and verified all information documented by the medical student and made modifications to such information, when appropriate. I personally performed the physical exam and medical decision making. Zhanna Chang, Dec 04, 2019,10:36 SAMIA ZAIDI MED STUDENT Dec 04, 2019 10:15 ZHANNA CHANG DO Dec 04, 2019 10:35
[2019-12-04 12:03] VITALS: BP 123/73
--- NOTE | 2019-12-04 12:06 | Progress Note - Hospitalist ---
Subjective HPI/CC On Admission Date Seen by Provider: Dec 04, 2019 Time Seen by Provider: 09:50 Deion Rivera is a 68-year-old male with past medical history of alcohol dependence, depression, who presented with abdominal pain. He is a poor historian. He says that he did have abdominal pain. He reports nausea and vomiting. He appears uncomfortable. He denies any fevers. He denies any shortness of breath or cough. He denies any bowel movements. Subjective/Events-last exam he remains difficult understand but is oriented. He denies any abdominal pain. He has been having bowel movements. He says that his mouth is dry. He denies any nausea or vomiting. He has not had any fevers or chills. He denies any chest pain or shortness of breath. Objective Exam Vital Signs Vital Signs Date Time Temp Pulse Resp B/P (MAP) Pulse Ox O2 Delivery O2 Flow Rate FiO2 12/04/19 08:02 36.5 110 20 143/80 (101) 93 Room Air Capillary Refill : Less Than 3 Seconds General Appearance: No Apparent Distress, Chronically ill HEENT: PERRL/EOMI, Other (oropharynx dry) Neck: Normal Inspection, Supple Respiratory: Lungs Clear, Normal Breath Sounds, No Respiratory Distress Cardiovascular: Regular Rate, Rhythm, No Edema, No Murmur Gastrointestinal: Normal Bowel Sounds, Soft, Tenderness Extremity: Normal Inspection, Non Tender, No Pedal Edema Neurologic/Psychiatric: Alert, No Motor/Sensory Deficits, Normal Mood/Affect, Disoriented (oriented to person, date; disoriented to [facility]) Skin: Normal Color, Warm/Dry Results/Procedures Lab Laboratory Tests 12/04/19 08:18 Patient resulted labs reviewed. Imaging: Reviewed Imaging Report Assessment/Plan Assessment and Plan Assess & Plan/Chief Complaint Small bowel obstruction Abdominal pain Nausea and vomiting CT abdomen concerning for small bowel obstruction with possible distal transition point Surgery consulted, appreciate assistance small bowel follow-through showed no evidence of obstruction Patient pulled the NG tube overnight Continue IV fluids Advance diet to clears Alcohol dependence alcohol intoxication acute alcoholic hepatitis Demetia vs delirium EtOH 87 on arrival LFTs elevated, trending down Reported daily drinker continue CIWA protocol social work consulted, appreciate assistance Pancytopenia improving Likely due to alcohol use Check B12/folic acid levels started on vitamin regimen Smoker Nicotine patch as needed DVT prophylaxis: Lovenox Diagnosis/Problems Diagnosis/Problems (1) Small bowel obstruction Status: Acute (2) Pancytopenia Status: Acute (3) Smoker Status: Chronic (4) Alcohol dependence Status: Acute (5) Alcoholism Status: Acute Clinical Quality Measures DVT/VTE Risk/Contraindication: Risk Factor Score Per Nursin RFS Level Per Nursing on Admit: 2=Moderate BARBARA COX MD Dec 04, 2019 12:06
[2019-12-04] MEDS ORDERED: MELATONIN 3 MG TABLET PO PRN (12:15)
[2019-12-04] MEDS ORDERED: ACETAMINOPHEN 325 MG TABLET PO PRN (12:15)
[2019-12-04] MEDS ORDERED: BISACODYL 10 MG SUPP (DULCOLAX) PR PRN (12:15)
[2019-12-04] MEDS ORDERED: polyethylene glycoL POWDER 17 GM (MIRALAX) PACK PO PRN (12:15)
[2019-12-04] MEDS: ENOXAPARIN 40 MG/0.4 ML (LOVENOX) SYR SC SCH (15:43)
[2019-12-04 16:30] VITALS: BP 132/76
[2019-12-04 20:00] VITALS: BP 146/72
[2019-12-04] MEDS: DOCUSATE SODIUM 100 MG (COLACE) CAP PO SCH (20:08)
[2019-12-04] MEDS: SENNOSIDES 8.6 MG (SENOKOT) TAB PO SCH (20:09)
[2019-12-05 00:49] VITALS: BP 147/92
[2019-12-05 04:49] VITALS: BP 149/88
[2019-12-05] MEDS: D5 1/2 NS W/KCL 20 MEQ/L 1,000 ML IV SCH ×4 (05:11→23:24)
[2019-12-05] MEDS: THIAMINE 100 MG (VITAMIN B-1) TAB PO SCH (05:58)
[2019-12-05] MEDS: MULTIVIT W/MINERALS TAB (THERAGRAN M) PO SCH (05:58)
[2019-12-05 08:00] VITALS: BP 146/76
--- NOTE | 2019-12-05 08:14 | Progress Note - Surgery ---
SAMIA ZAIDI MED STUDENT 12/05/19 0814: Subjective Date Seen by a Provider: Dec 05, 2019 Time Seen by a Provider: 07:40 Subjective/Events-last exam Deion is doing well compared to previously. Much less confused, states no abdominal pain, nausea, vomiting, chest pain, SOB, fever, chills. Objective Exam Vital Signs Date Time Temp Pulse Resp B/P (MAP) Pulse Ox O2 Delivery O2 Flow Rate FiO2 12/05/19 07:00 89 12/05/19 04:49 36.7 85 16 149/88 (108) 93 Room Air 12/05/19 01:00 77 12/05/19 00:49 36.2 86 16 147/92 (110) 91 Room Air 12/04/19 20:00 36.6 76 14 146/72 (96) 93 Room Air 12/04/19 20:00 Room Air 12/04/19 19:00 79 12/04/19 16:30 36.4 83 16 132/76 (94) 94 Room Air 12/04/19 12:32 82 12/04/19 12:03 36.6 86 20 123/73 (90) 94 Room Air I & O 12/05/19 07:00 Intake Total 1350 ml Output Total 2700 ml Balance -1350 ml Capillary Refill : Less Than 3 Seconds General Appearance: No Apparent Distress, Chronically ill HEENT: PERRL/EOMI, Other (oropharynx dry) Neck: Normal Inspection, Supple Respiratory: Lungs Clear, Normal Breath Sounds, No Respiratory Distress Cardiovascular: Regular Rate, Rhythm, No Edema, No Murmur Gastrointestinal: non tender; No distended, No guarding, No rebound, No tenderness Extremity: Normal Inspection, Non Tender, No Pedal Edema Neurologic/Psychiatric: Alert, No Motor/Sensory Deficits, Normal Mood/Affect, Disoriented (oriented to person, date; disoriented to [facility] ([facility] ([facility] Skin: Normal Color, Warm/Dry Lymphatic: No Adenopathy Results Lab Laboratory Tests 12/04/19 08:18: White Blood Count 4.8, Red Blood Count 3.11L, Hemoglobin 12.8L, Hematocrit 35L, Mean Corpuscular Volume 113H, Mean Corpuscular Hemoglobin 41H, Mean Corpuscular Hemoglobin Concent 37H, Red Cell Distribution Width 16.1H, Platelet Count 137, Mean Platelet Volume 9.0, Neutrophils (%) (Auto) 64, Lymphocytes (%) (Auto) 22, Monocytes (%) (Auto) 12, Eosinophils (%) (Auto) 1, Basophils (%) (Auto) 0, Neutrophils # (Auto) 3.1, Lymphocytes # (Auto) 1.1, Monocytes # (Auto) 0.6, Eosinophils # (Auto) 0.1, Basophils # (Auto) 0.0, Sodium Level 135, Potassium Level 3.8, Chloride Level 100, Carbon Dioxide Level 23, Anion Gap 12, Blood Urea Nitrogen 6L, Creatinine 0.74, Estimat Glomerular Filtration Rate > 60, BUN/Creatinine Ratio 8, Glucose Level 96, Calcium Level 9.1, Corrected Calcium 9.0, Phosphorus Level 2.7, Magnesium Level 2.1, Total Bilirubin 0.8, Aspartate Amino Transf (AST/SGOT) 35H, Alanine Aminotransferase (ALT/SGPT) 29, Alkaline Phosphatase 73, Total Protein 6.9, Albumin 4.1 Assessment/Plan Assessment/Plan Assessment/Plan epigastric abdominal pain nausea vomiting small bowel obstruction etoh chronic use c confusion ng tube removed 2 days ago berg in place small bowel follow through 2 days ago no obstruction if vomits again, place ng tube back to [facility] conservative measures alcohol withdrawal measures no surgical intervention at this time will follow ok for discharge from surgical perspective Clinical Quality Measures DVT/VTE Risk/Contraindication: Risk Factor Score Per Nursin RFS Level Per Nursing on Admit: 2=Moderate ZHANNA CHANG DO 12/05/191935: Subjective Subjective/Events-last exam able to hold conversation. feeling better. not having any abdominal pain. not having any nausea or vomiting. patient states likely drinks too much. Not wanting to stop at this time. Denies fever sweats chills shortness of breath or chest pain. Objective Exam General Appearance: No Apparent Distress, Chronically ill HEENT: PERRL/EOMI, Normal ENT Inspection Neck: Normal Inspection, Supple Respiratory: Chest Non Tender, No Accessory Muscle Use, No Respiratory Distress Cardiovascular: Regular Rate, Rhythm, No JVD Gastrointestinal: non tender; No distended, No guarding, No rebound, No tenderness Extremity: Normal Inspection, Non Tender Neurologic/Psychiatric: Alert, No Motor/Sensory Deficits, Normal Mood/Affect, Disoriented (oriented to person, date; disoriented to city, hold better conver sation) Skin: Normal Color, Warm/Dry Lymphatic: No Adenopathy Assessment/Plan Assessment/Plan Assessment/Plan epigastric abdominal pain nausea vomiting small bowel obstruction etoh chronic use c confusion berg in place small bowel follow through 2 days ago no obstruction if vomits again, place ng tube back to [facility] conservative measures alcohol withdrawal measures not wanting any help with alcohol cessation diet as tolerates no surgical intervention at this time will follow Supervisory-Addendum Brief Verification & Attestation Participated in pt care: history, MDM, physical Personally performed: exam, history, MDM, supervision of care Care discussed with: Medical Student Procedures: n/a Results interpretation: Verified all documentation Verification and Attestation of Medical Student E/M Service A medical student performed and documented this service in my presence. I revie wed and verified all information documented by the medical student and made modifications to such information, when appropriate. I personally performed the physical exam and medical decision making. Zhanna Chang, Dec 05, 2019,09:36 SAMIA ZAIDI MED STUDENT Dec 05, 2019 08:14 ZHANNA CHANG DO Dec 05, 2019 19:36
[2019-12-05] MEDS ORDERED: ACET-2267 PO (08:54)
[2019-12-05] MEDS ORDERED: IBUP-2473 PO (08:54)
[2019-12-05] MEDS ORDERED: POLY17PO6 PO (08:54)
[2019-12-05] MEDS ORDERED: ONDA4TAB11 PO (08:54)
[2019-12-05] MEDS: NICOTINE PATCH REMOVAL TP SCH (09:00)
[2019-12-05] MEDS: DOCUSATE SODIUM 100 MG (COLACE) CAP PO SCH ×2 (09:01→20:03)
[2019-12-05] MEDS: SENNOSIDES 8.6 MG (SENOKOT) TAB PO SCH ×3 (09:02→20:03)
[2019-12-05] MEDS ORDERED: BUPR150T14 PO ×2 (09:05)
[2019-12-05] MEDS: FOLIC ACID 1 MG TAB PO SCH (09:27)
[2019-12-05] MEDS: buPROPion SR 150 MG (WELLBUTRIN SR) TAB PO SCH ×2 (09:27→20:03)
[2019-12-05] MEDS: PANTOPRAZOLE 20 MG TABLET (PROTONIX) PO SCH (09:27)
--- NOTE | 2019-12-05 09:39 | NUR ---
SPOKE WITH THE PT, WENT THRU THE EXT MED HISTORY AND CALLED [facility], BRENDA AND ANGIE TO COMPLETE THE MED REC BUPROPION SR 150MG- PT SAYS HE TAKES 2 TABS AM AND 1 TAB PM HOWEVER HE HAS NOT FILLED THIS SINCE 06-08-2019 #270/90DS. WHEN I QUESTIONED THE PT ABLE HOW HE TAKES IT VS HOW IT IS PRESCRIBED HE STATES HE TAKES IT PRESCRIBED BUT DOES ADMIT TO MISSING A DOSE "HERE AND THERE". PT THEN SAYS HE THINKS HE FILLED IT AT [facility] RECENTLY BUT WHEN I CALLED THEY HAD NOT FILLED ANY PRESCRIPTION SINCE 2017. I THEN ASKED THE PT ABOUT THE PAST DUE REFILL AND HE REPLIED " I CANT TELL YOU ANYTHING ABOUT THAT". I DID PUT IT ON THE EXT MED HISTORY AND ADDED THE PAST DUE FILL DATE OTC MEDS: TYLENOL IBUPROFEN MIRALAX
--- NOTE | 2019-12-05 11:16 | NUR ---
Pt is Zoroastrian and declines sacraments. Believes he is going home today.
--- NOTE | 2019-12-05 11:57 | Discharge Summary ---
Diagnosis/Chief Complaint Date of Admission Dec 02, 2019 at 14:37 Date of Discharge Admission Diagnosis small bowel obstruction Primary Care Maximilian Herrera MD Discharge Diagnosis (1) Small bowel obstruction Status: Acute (2) Pancytopenia Status: Acute (3) Smoker Status: Chronic (4) Alcohol dependence Status: Acute (5) Alcoholism Status: Acute Discharge Summary Discharge Physical Exam Allergies: Coded Allergies: No Known Drug Allergies (Unverified , 04/11/11) Vitals & I&Os Vital Signs Date Time Temp Pulse Resp B/P (MAP) Pulse Ox O2 Delivery O2 Flow Rate FiO2 12/05/19 08:00 37.2 83 16 146/76 (99) 95 Room Air General Appearance: No Apparent Distress, WD/WN Respiratory: Lungs Clear, No Respiratory Distress Cardiovascular: Regular Rate, Rhythm, No Murmur Neurologic/Psychiatric: Alert, Oriented x3 Hospital Course Pt was admitted due to small bowel obstruction. This was treated conservatively with bowel rest and an NGT and did well with resolution of obstruction with adequate bowel function prior to discharge. He was treated with alcohol withdraw al as well and did well with minimal doses of Ativan. Patient does not have intentions of quitting drinking. Labs (last 24 hrs) Patient resulted labs reviewed. Imaging: Reviewed Imaging Report Discussion & Recommendations Discharge Planning: >30 minutes discharge planning Discharge Home Medications: Active Scripts Active Reported Bupropion HCl Sr (Bupropion HCl) 150 Mg Tablet.er 300 Mg PO DAILY TAKES 2 (150MG) TABS DAILY LAST FILLED 06-08-2019 #270/90 DAY SUPPLY Bupropion HCl Sr (Bupropion HCl) 150 Mg Tablet.er 150 Mg PO HS LAST FILLED 06-08-2019 #270/90 DAY SUPPLY Miralax (Polyethylene Glycol 3350) 17 Gm Powd.pack 17 Gm PO BID Ibuprofen 200 Mg Tablet 400-600 Mg PO Q8H PRN Tylenol Extra Strength (Acetaminophen) 500 Mg Tablet 1,000 Mg PO Q8H PRN Ondansetron Odt (Ondansetron) 4 Mg Tab.rapdis 4 Mg PO Q4H PRN Rabeprazole Sodium 20 Mg Tablet.dr 20 Mg PO DAILY Instructions to patient/family Please see electronic discharge instructions given to patient. Clinical Quality Measures DVT/VTE Risk/Contraindication: Risk Factor Score Per Nursin RFS Level Per Nursing on Admit: 2=Moderate Copy Copies To 1: MAXIMILIAN HERRERA MD, KATELYN M MD Dec 05, 2019 11:57
[2019-12-05 12:00] VITALS: BP 156/86
--- NOTE | 2019-12-05 12:00 | Discharge Inst-Simple/Standard ---
Discharge Inst-Standard Patient Instructions/Follow Up Plan of Care/Instructions/FU: Please continue to take your medications as written. Please follow up with your primary care doctor to follow up this hospital stay. Activity as Tolerated: Yes Discharge Diet: No Restrictions Return to The Hospital For: Chest pain, shortness of breath, abdominal pain, no bowel movement or gas for >24 hours, fever, if you feel you are getting worse. YVETTE MOON MD Dec 05, 2019 11:59
--- NOTE | 2019-12-05 13:20 | NUR ---
"RD ASSESSMENT PMHx: ETOH dependence; GERD; chronic constipation; CA(skin) PT INTERACTION: Pt was awake and pleasant during nutrition assessment. Note pt is a poor historian, per chart review. Pt states current appetite is good. Note PO intake 50% x1meal, per chart review. Pt states following a regular diet at home, and has no issues with chewing/swallowing food. Pt states recent issues with nausea, vomiting, and constipation. NOte last BM was 12/04, and pt currently on bowel regimen of colace BID; and senna BID, per chart review. Pt states recent 6-7# wt gain, but unsure of timeframe. Note unable to determine recent wt hx, per chart review. ABNORMAL NUTRITION-RELATED LAB VALUES LOW: HIGH: Est. kcal needs: Est. Pro needs: PES STATEMENT: Inadequate oral intake (NI-2.1) related to nausea | vomiting | constipation as evidenced by pt interview | PO intake 50% x1meal INTERVENTION: Continue with current diet order of Clear Liquid diet. Pt may benefit from nutrition supplementation if PO intake declines. Will continue to follow and reassess as pt needs, intake, and status change. Mariaa Farias, MS, RD, LD"
[2019-12-05] MEDS: ENOXAPARIN 40 MG/0.4 ML (LOVENOX) SYR SC SCH (14:05)
--- NOTE | 2019-12-05 14:20 | NUR ---
Important Message from Medicare presented, reviewed, signed and placed in patient chart. Patient voiced no intention to appeal and deny any needs or further questions at this time.
--- NOTE | 2019-12-05 14:29 | Physical Therapy Evaluation ---
PT Evaluation-General Medical Diagnosis Admission Date Dec 02, 2019 at 14:37 Medical Diagnosis: SBO/alcoholism Onset Date: Dec 02, 2019 Therapy Diagnosis Therapy Diagnosis: impaired mobility/weakness Height/Weight Height (Feet): 5 Height (Inches): 9.00 Weight (Pounds): 175 Precautions Precautions/Isolations: Seizure, Fall Prevention, Standard Precautions Referral Physician: Ngoc Reason for Referral: Evaluation/Treatment Medical History Pertinent Medical History: Alcoholism, Arthritis, Smoking Current History EMS secondary to abdominal pain Reviewed History: Yes Social History Home: Single Level Current Living Status: Alone Prior Prior Level of Function SCALE: Activities may be completed with or without assistive devices. 6-Fmoqmyoump-soltrmp completes the activity by him/herself with no assistance fr om a helper. 5-Set-up or Clean-up Assistance-helper sets up or cleans up; patient completes activity. [place] assists only prior to or following the activity. 4-Supervision or Touching Assistance-helper provides verbal cues and/or touching/steadying and/or contact guard assistance as patient completes activity. Assistance may be provided throughout the activity or intermittently. 3-Partial/Moderate Assistance-helper does LESS THAN HALF the effort. [place] lifts, holds or supports trunk or limbs, but provides less than half the effort. 2-Substantial/Maximal Assistance-helper does MORE THAN HALF the effort. [place] lifts or holds trunk or limbs and provides more than half the effort. 0-Bexxrczxq-zzwcgl does ALL the effort. Patient does none of the effort to complete the activity. Or, the assistance of 2 or more helpers is required for the patient to complete the activity. If activity was not attempted, code reason: 7-Patient Refused. 9-Not Applicable-not attempted and the patient did not perform the activity before the current illness, exacerbation or injury. 10-Not Attempted due to Environmental Limitations-(lack of equipment, weather restraints, etc.). 88-Not Attempted due to Medical Conditions or Safety Concerns. Bed Mobility: 6 Transfers (B,C,W/C): 6 Gait: 6 Stairs: 6 Indoor Mobility (Ambulation): Independent Stairs: Independent Prior Devices Use: None PT Evaluation-Current Subjective Patient agrees to PT. No c/o. Pain Numeric Pain Scale: 0-No Pain Location: No Pain Reported Objective Patient Orientation: Person, Time, Situation Attachments: IV ROM/Strength ROM Lower Extremities bilateral LE WFL Strength Lower Extremities 4-/5 grossly bilateral LE Integumentary/Posture Integumentary refer to nursing notes Bowel Incontinence: No Bladder Incontinence: No Posture WFL Neuromuscular (Tone, Coordination, Reflexes) noted tremors Sensory Vision: Functional Hearing: Functional Transfers Roll Left to Right (QC): 6 Sit to Lying (QC): 6 Lying to Sitting/Side of Bed(Q: 6 Sit to Stand (QC): 6 Chair/Cwl-ah-Mucfp Xfer(QC): 6 Gait Does the Patient Walk?: Yes Mode of Locomotion: Walk Anticipated Mode of Locomotion: Walk Walk 10 feet (QC): 4 Walk 50 ft with 2 Turns(QC): 4 Walk 150 ft (QC): 4 Gait Assistive Device: FWW Comments/Gait Description slightly unsteady Balance Sitting Static: Normal Sitting Dynamic: Normal Standing Static: Fair Standing Dynamic: Fair Assessment/Needs 68 y.o. male, will benefit from skilled PT to address functional strength and mobility to ensure safe return to home at maximum LOF. Rehab Potential: Fair Post Rehab Potential-Barriers: compliance PT Admin Secretary Goals Fdc Goals PT Fdc Goals Time Frame: Dec 17, 2019 Roll Left & Right (QC): 6 Sit to Lying (QC): 6 Lying-Sitting on Side/Bed(QC): 6 Sit to Stand (QC): 6 Chair/Wgz-ok-Kbleb Xfer(QC): 6 Toilet Transfer (QC): 6 Does the Patient Walk: Yes Walk 10 feet (QC): 6 Walk 50ft with 2 Turns (QC): 6 Walk 150 ft (QC): 6 PT Plan Problem List Problem List: Activity Tolerance, Functional Strength, Safety, Balance, Gait, Transfer, Bed Mobility Treatment/Plan Treatment Plan: Continue Plan of Care Treatment Plan: Bed Mobility, Education, Functional Activity Claudia, Functional Strength, Gait, Safety, Therapeutic Exercise, Transfers Treatment Duration: Dec 17, 2019 Frequency: 6 times per week Estimated Hrs Per Day: .25 hour per day Patient and/or Family Agrees t: Yes Time/GCodes Time In: 1315 Time Out: 1330 Total Billed Treatment Time: 15 Total Billed Treatment 1 visit EVModC 15 min KATHRYN CORRAL PT Dec 05, 2019 14:29
--- NOTE | 2019-12-05 15:53 | NUR ---
CM/SS: Visited with pt as to consult for Alcohol use, and plan for discharge Plan: Undetermined at this time. Pt is from home and will return there Summary: Pt reports feeling better, he does drink, he does drink more than he should, he does not have a desire to quit drinking at this time. Pt request to go home today. Talked with Dr. Grossman. Pt will remain one more day to get stronger and feel better. Pt is informed of this. This worker will follow up.
[2019-12-05 16:05] VITALS: BP_SYST 124; BP_SYST 139; BP_DIAS 60; BP_DIAS 80
[2019-12-05 19:50] VITALS: BP 124/68
[2019-12-06 00:40] VITALS: BP 151/94
[2019-12-06 04:44] VITALS: BP 158/96
[2019-12-06] MEDS: D5 1/2 NS W/KCL 20 MEQ/L 1,000 ML IV SCH ×2 (06:28→12:37)
[2019-12-06] MEDS: MULTIVIT W/MINERALS TAB (THERAGRAN M) PO SCH (06:29)
[2019-12-06] MEDS: THIAMINE 100 MG (VITAMIN B-1) TAB PO SCH (06:29)
[2019-12-06 08:00] VITALS: BP 146/92
[2019-12-06] MEDS: NICOTINE PATCH REMOVAL TP SCH (08:47)
[2019-12-06] MEDS: buPROPion SR 150 MG (WELLBUTRIN SR) TAB PO SCH (08:52)
[2019-12-06] MEDS: PANTOPRAZOLE 20 MG TABLET (PROTONIX) PO SCH (08:53)
[2019-12-06] MEDS: FOLIC ACID 1 MG TAB PO SCH (08:53)
[2019-12-06] MEDS: DOCUSATE SODIUM 100 MG (COLACE) CAP PO SCH (08:53)
[2019-12-06] MEDS: SENNOSIDES 8.6 MG (SENOKOT) TAB PO SCH (08:53)
--- NOTE | 2019-12-06 09:35 | Progress Note - Surgery ---
Subjective Date Seen by a Provider: Dec 06, 2019 Time Seen by a Provider: 07:10 Subjective/Events-last exam Weston is feeling well. Denies nausea, vomiting, abdominal pain, fever, chills, SOB, chest pain. States he wishes to go home today. Objective Exam Vital Signs Date Time Temp Pulse Resp B/P (MAP) Pulse Ox O2 Delivery O2 Flow Rate FiO2 12/06/19 08:00 37.2 98 14 146/92 (110) 95 Room Air 12/06/19 04:44 36.8 88 20 158/96 (116) 94 Room Air 12/06/19 01:04 81 12/06/19 00:40 36.6 88 18 151/94 (113) 95 Room Air 12/05/19 20:00 Room Air 12/05/19 19:50 37.1 94 20 124/68 (86) 93 Room Air 12/05/19 19:00 108 12/05/19 16:05 37.1 86 19 139/80 (99) 94 Room Air 12/05/19 13:00 90 12/05/19 12:00 37.2 87 16 156/86 (109) 96 Room Air I & O 12/06/19 07:00 Intake Total 1280 ml Output Total 900 ml Balance 380 ml Capillary Refill : Less Than 3 Seconds General Appearance: No Apparent Distress, Chronically ill HEENT: PERRL/EOMI, Normal ENT Inspection Neck: Normal Inspection, Supple Respiratory: Chest Non Tender, No Accessory Muscle Use, No Respiratory Distress Cardiovascular: Regular Rate, Rhythm, No JVD Gastrointestinal: non tender, soft; No distended, No guarding, No rebound, No tenderness Extremity: Normal Inspection, Non Tender Neurologic/Psychiatric: Alert, No Motor/Sensory Deficits, Normal Mood/Affect Skin: Normal Color, Warm/Dry Lymphatic: No Adenopathy Assessment/Plan Assessment/Plan Assessment/Plan epigastric abdominal pain nausea vomiting small bowel obstruction etoh chronic use c confusion berg in place small bowel follow through 3 days ago no obstruction conservative measures alcohol withdrawal measures not wanting any help with alcohol cessation diet as tolerates no surgical intervention at this time will follow Clinical Quality Measures DVT/VTE Risk/Contraindication: Risk Factor Score Per Nursin RFS Level Per Nursing on Admit: 2=Moderate SAMIA ZAIDI MED STUDENT Dec 06, 2019 09:35
--- NOTE | 2019-12-06 10:29 | Physical Therapy Daily Note ---
PT Daily Note-Current Subjective Patient is in bed and reports he hopes to go home today. Agrees to PT. Mental Status Patient Orientation: Person, Time, Situation Transfers SCALE: Activities may be completed with or without assistive devices. 5-Izuvlgmhbv-irakvnk completes the activity by him/herself with no assistance from a helper. 5-Set-up or Clean-up Assistance-helper sets up or cleans up; patient completes activity. [place] assists only prior to or following the activity. 4-Supervision or Touching Assistance-helper provides verbal cues and/or touching/steadying and/or contact guard assistance as patient completes activity. Assistance may be provided throughout the activity or intermittently. 3-Partial/Moderate Assistance-helper does LESS THAN HALF the effort. [place] lifts, holds or supports trunk or limbs, but provides less than half the effort. 2-Substantial/Maximal Assistance-helper does MORE THAN HALF the effort. [place] lifts or holds trunk or limbs and provides more than half the effort. 8-Mstvfiznj-vnwsmn does ALL the effort. Patient does none of the effort to complete the activity. Or, the assistance of 2 or more helpers is required for the patient to complete the activity. If activity was not attempted, code reason: 7-Patient Refused. 9-Not Applicable-not attempted and the patient did not perform the activity before the current illness, exacerbation or injury. 10-Not Attempted due to Environmental Limitations-(lack of equipment, weather restraints, etc.). 88-Not Attempted due to Medical Conditions or Safety Concerns. Roll Left & Right (QC): 6 Lying to Sitting/Side of Bed(Q: 6 Sit to Stand (QC): 5 Chair/Wxf-gq-Twysg Xfer(QC): 5 Gait Training Does the Patient Walk?: Yes Distance: 300' Walk 10 feet (QC): 5 Walk 50 ft with 2 Turns(QC): 5 Walk 150 ft (QC): 5 Gait Assistive Device: FWW very slow, short step length gait sequence Assessment SW and physician notified of FWW for home use for safety due to patient is a high fall risk. PT Long-Term Goals Registered Physical Therapist Goals PT Long-Term Goals Time Frame: Dec 17, 2019 Roll Left & Right (QC): 6 Sit to Lying (QC): 6 Lying-Sitting on Side/Bed(QC): 6 Sit to Stand (QC): 6 Chair/Pvc-eb-Lbtku Xfer(QC): 6 Toilet Transfer (QC): 6 Does the Patient Walk: Yes Walk 10 feet (QC): 6 Walk 50ft with 2 Turns (QC): 6 Walk 150 ft (QC): 6 PT Plan Treatment/Plan Treatment Plan: Discontinue PT Treatment Plan: Bed Mobility, Education, Functional Activity Claudia, Functional Strength, Gait, Safety, Therapeutic Exercise, Transfers Treatment Duration: Dec 17, 2019 Frequency: 6 times per week Estimated Hrs Per Day: .25 hour per day Patient and/or Family Agrees t: Yes Time/GCodes Time In: 915 Time Out: 925 Total Billed Treatment Time: 10 Total Billed Treatment 1 visit FA 10 min KATHRYN CORRAL PT Dec 06, 2019 10:29
--- NOTE | 2019-12-06 10:51 | D/C HH Face to Face Order ---
D/C Face to Face Orders Instructions for Patient [facility], Patient Instructions/FollowUp: Please continue to take your medications as written. Please follow up with your primary care doctor in the next week to follow up this hospital stay. Physician to follow Patient: Dr Clifford Discharge Diet for Home: No Restrictions Patient Data-Allergies,Ht & Wt Patient Allergies: Coded Allergies: No Known Drug Allergies (Unverified , 04/11/11) Height (Feet): 5 Height (Inches): 9.00 Weight (Pounds): 175 Home Health Need/Face to Face Date of Face to Face: Dec 06, 2019 Clinical Findings: Unsteady gait I have seen Pt pird-ta-czzx: Yes Discharged To: Home Diagnosis/Conditions: SBO, alcohol withdrawal Patient is Homebound due to: Safia fall risk due to instabilty Homebound Status Due to the above stated illness, injury or surgical procedure (medical condition or diagnosis) and associated clinical findings, the patient is homebound because of his/her inability to leave home except with aid of a supportive device and/or person AND leaving the home requires a considerable and taxing effort or is medically contraindicated. Pt req the following assistanc: Walker Home Health Nursing Orders Home Health Services Order: Physical Therapy-Evaluate & Treat Home Health Infusion Therapy Line Start Date: Dec 02, 2019 Therapy Orders Therapy Orders: Physical Therapy, PT to assess for OT Therapy Specific Orders: Eval assistive deivces, Teach enviro modifications/safety, Gait training, Increase strength/endurance, Restore ROM Certify Stmt I certify that this patient is under my care and that I, a nurse practitioner or a physician; a executive sales assistant working with me, had a face to face encounter that - meets the physician face to face encounter requirements with this patient as dated. YVETTE MOON MD Dec 06, 2019 10:51
[2019-12-06] MEDS: ENOXAPARIN 40 MG/0.4 ML (LOVENOX) SYR SC SCH (12:37)
--- NOTE | 2019-12-06 20:40 | NUR ---
CM/SS: Referral called in to [place] [facility] home [facility] [place] - for home care services - physical therapy so that pt can get stronger and be more steady on his feet. Home Care staff Deanna, is aware and will reach out to pt as to when they can visit to set up services.
== END 2019-12-06 17:30 | disposition home health service (06) | DRG 389 ==
LOC: EDUNIT# 06:50 → ER 06:51 → 4TH 14:37
PROVIDERS: ADMIT Internal Medicine; ATTEND Internal Medicine
PROC: 0D9670Z Drainage of Stomach with Drainage Device, Via Natural or Artificial Opening (ICD-10-PCS; principal; 2019-12-02)
DX: K56.699 Other intestinal obstruction unspecified as to partial versus complete obstruction (principal); D61.818 Other pancytopenia; F10.231 Alcohol dependence with withdrawal delirium; F10.20 Alcohol dependence, uncomplicated; F17.210 Nicotine dependence, cigarettes, uncomplicated; K70.10 Alcoholic hepatitis without ascites; K21.9 Gastro-esophageal reflux disease without esophagitis; F32.9 Major depressive disorder, single episode, unspecified; M19.91 Primary osteoarthritis, unspecified site; K59.09 Other constipation; M54.9 Dorsalgia, unspecified; G89.29 Other chronic pain; K76.0 Fatty (change of) liver, not elsewhere classified; Z98.1 Arthrodesis status; Z86.010 Personal history of colon polyps; Z87.19 Personal history of other diseases of the digestive system; Z85.828 Personal history of other malignant neoplasm of skin; Z87.442 Personal history of urinary calculi; Y90.4 Blood alcohol level of 80-99 mg/100 ml
CPT/HCPCS: 36415; 51702; 71045; 71260; 74177; 74250; 80053; 80306; 80320; 81000; 82150; 82607; 82746; 83690; 83735; 84100; 84484; 85025; 85610; 85730; 93005; 93041

== ENCOUNTER → 2020-05-28 | Outpatient (CLI) | payer MEDICARE, OTHER ==
[~2020-05-28] MED LIST changes: +ACET-2267 PO; +BUPR150T14 PO; +IBUP-2473 PO; +ONDA4TAB11 PO; +POLY17PO6 PO; +RABE20TA30 PO; +TRAM50TA3 PO
--- NOTE | 2020-05-28 15:10 | Diagnostic Imaging Report ---
PROCEDURE: US right lower extremity venous. TECHNIQUE: Multiple real-time grayscale images were obtained over the right lower extremity in various projections. Additional spectral analysis and color Doppler duplex images were also obtained. INDICATION: Right leg swelling. FINDINGS: There is no evidence of right lower extremity DVT. Right lower extremity deep venous system shows normal compressibility with normal response to augmentation and Valsalva. No fluid collection or mass is detected. IMPRESSION: No evidence of right lower extremity DVT. Dictated by: Dictated on workstation # [id number]
== END ==
LOC: RAD 14:20
PROVIDERS: ATTEND Nurse Practitioner Family
DX: M79.661 Pain in right lower leg (principal); M79.89 Other specified soft tissue disorders; R60.0 Localized edema

== ENCOUNTER → 2020-05-28 | Outpatient (CLI) | payer MEDICARE, OTHER | LOC: CANPRECLI → RAD 14:11 ==

== ENCOUNTER 2021-08-30 10:22 | Emergency (ER) | payer MEDICARE, OTHER ==
[~2021-08-30] VITALS: Ht 175 cm; Wt 95.0 kg
[~2021-08-30 10:22] MED LIST changes: +BUPR-105 PO; -BUPR150T14 PO
[2021-08-30] MEDS ORDERED: fentaNYL INJ 100 MCG/2 ML AMP IVP ONE (11:00)
[2021-08-30 11:05] LABS: BASOPHILS % (AUTO) 0 % (0-10); EOSINOPHILS % (AUTO) 0 % (0-10); HEMATOCRIT 39 % (40-54); HEMOGLOBIN 13.5 g/dL (13.3-17.7); LYMPHOCYTES # (AUTO) 1.2 10^3/uL (1.0-4.0); LYMPHOCYTES % (AUTO) 17 % (12-44); MEAN CORPUSCULAR HEMOGLOBIN 39 pg (25-34); MEAN CORPUSCULAR HGB CONC 35 g/dL (32-36); MEAN CORPUSCULAR VOLUME 110 fL (80-99); MEAN PLATELET VOLUME 9.4 fL (9.0-12.2); MONOCYTES # (AUTO) 0.6 10^3/uL (0.0-1.0); MONOCYTES % (AUTO) 8 % (0-12); NEUTROPHILS # (AUTO) 5.1 10^3/uL (1.8-7.8); NEUTROPHILS % (AUTO) 74 % (42-75); PLATELET COUNT 194 10^3/uL (130-400); WHITE BLOOD COUNT 6.9 10^3/uL (4.3-11.0)
[2021-08-30] MEDS ORDERED: morphine INJ 10 MG/ML 1ML (SYR OR VIAL) IVP STA (11:09)
[2021-08-30] MEDS ORDERED: ONDANSETRON 4 MG/2 ML (SDV) Z0FRAN IVP ONE (11:15)
[2021-08-30 11:19] LABS: ALBUMIN 3.8 GM/DL (3.2-4.5); CHLORIDE 106 MMOL/L (98-107); POTASSIUM 3.2 MMOL/L (3.6-5.0); SODIUM 146 MMOL/L (135-145)
[2021-08-30 11:20] LABS: CALCIUM 9.3 MG/DL (8.5-10.1)
[2021-08-30 11:22] LABS: GLUCOSE 114 MG/DL (70-105); TOTAL PROTEIN 6.8 GM/DL (6.4-8.2)
[2021-08-30 11:23] LABS: BILIRUBIN,TOTAL 0.9 MG/DL (0.1-1.0); CARBON DIOXIDE 22 MMOL/L (21-32)
[2021-08-30 11:25] LABS: ALKALINE PHOSPHATASE 64 U/L (40-136)
[2021-08-30 11:26] LABS: CREATININE SERUM 0.77 MG/DL (0.60-1.30); GFR ESTIMATED 96
[2021-08-30 11:27] LABS: BUN/CREATININE RATIO 16
[2021-08-30 11:28] LABS: ALANINE AMINOTRANSFERASE 21 U/L (0-55)
[2021-08-30] MEDS ORDERED: LORazepam INJ 2 MG/ML (ATIVAN) VIAL IVP ONE ×2 (11:45→12:30)
[2021-08-30] MEDS ORDERED: HYDROmorphone 2 MG/ML VIAL (DILAUDID) IVP ONE (12:30)
[2021-08-30] MEDS ORDERED: HOLD METFORMIN - RECEIVED CONTRAST 20 ML VIAL IV SCH (12:30)
[2021-08-30] MEDS ORDERED: NS 100 ML (IVPB) BAG IV ONE (12:30)
[2021-08-30] MEDS ORDERED: CATHETER FLUSH 10 ML SYR IV PRN (12:30)
[2021-08-30] MEDS ORDERED: IOHEXOL 350 MG/ML 100 ML (OMNIPAQUE 350) VIAL IV ONE (12:30)
[2021-08-30 12:43] LABS: BILIRUBIN,URINE NEGATIVE (NEGATIVE); CLARITY,URINE CLEAR; COLOR,URINE YELLOW; GLUCOSE, URINE (UA) NEGATIVE (NEGATIVE); KETONES,URINE 1+ (NEGATIVE); LEUKOCYTE ESTERASE ,URINE NEGATIVE (NEGATIVE); NITRITE,URINE NEGATIVE (NEGATIVE); PH,URINE 7.5 (5-9); PROTEIN,URINE NEGATIVE (NEGATIVE)
[2021-08-30 12:54] LABS: BACTERIA,URINE NEGATIVE /HPF; RBC,URINE RARE /HPF; SQUAMOUS EPITHELIAL CELL,UR RARE /HPF; WBC,URINE RARE /HPF
[2021-08-30 12:59] LABS: AMPHETAMINE SCREEN, URINE NEGATIVE (NEGATIVE); BENZODIAZEPINES SCREEN URINE NEGATIVE (NEGATIVE); COCAINE SCREEN URINE NEGATIVE (NEGATIVE)
[2021-08-30 13:00] LABS: BARBITURATE SCREEN URINE NEGATIVE (NEGATIVE); CANNABINOID SCREEN, URINE NEGATIVE (NEGATIVE); METHADONE STAT NEGATIVE (NEGATIVE); OPIATE SCREEN URINE POSITIVE (NEGATIVE); OXYCODONE STAT NEGATIVE (NEGATIVE); PROPOXYPHENE STAT NEGATIVE (NEGATIVE); TRICYCLIC ANTIDEPRESSANTS SCRE NEGATIVE (NEGATIVE)
--- NOTE | 2021-08-30 13:26 | Diagnostic Imaging Report ---
EXAMINATION: CT chest, abdomen and pelvis with intravenous contrast. TECHNIQUE: Multiple contiguous axial images were obtained through the chest, abdomen and pelvis after the uneventful administration of intravenous contrast. All CT scans use one or more of the following dose optimizing techniques: Automated exposure control, MA and/or KvP adjustment based on patient size and exam type or iterative reconstruction. HISTORY: Chest and abdominal pain. COMPARISON: 12/02/2019. FINDINGS: There is mild pulmonary edema as evidenced by septal line thickening. There is mild emphysema. No pneumonia. No pleural effusion. No pneumothorax. No suspicious nodules. There is no axillary or supraclavicular lymphadenopathy. A 13 mm right upper paratracheal lymph node previously measured 11 mm. Heart size is normal. There are severe coronary artery calcifications. No pericardial effusion. Aorta is normal in caliber. There is a new indeterminate 7 mm segment IVb liver lesion. It is too small to fully characterize. There is no biliary ductal dilation. Gallbladder is normal. Pancreas is normal. Spleen is normal. Adrenal glands are normal. The kidneys are normal. There is no hydronephrosis. Urinary bladder is normal. Bowel is normal in caliber without obstruction or inflammation. No free fluid or air. No abdominal or pelvic lymphadenopathy. Aorta is normal in caliber without aneurysm. There are no suspicious osseous lesions. There has been a lumbar spine fusion. There is a mild T9 compression fracture, age indeterminate but new from prior exam. IMPRESSION: 1. Mild pulmonary edema. 2. New small indeterminate liver lesion, too small to characterize. Six-month follow-up liver CT or MRI is recommended. 3. Age-indeterminate but new from 2020 mild T9 compression fracture. Dictated by: Dictated on workstation # [id number]
--- NOTE | 2021-08-30 14:22 | ED Back Pain ---
General Chief Complaint: Back Problems Stated Complaint: BACK PAIN Source of Information: Patient, Other (Caregiver) Exam Limitations: No Limitations History of Present Illness Date Seen by Provider: Aug 30, 2021 Time Seen by Provider: 10:40 Initial Comments This 70-year-old man presents to the emergency room accompanied by his caregiver complaining of 2 to 3 days of low back pain and. The pain reportedly started while just sitting in a chair. Patient does have a history of ureteral stones and states this does not feel the same. He is yelling and wallowing in pain such that exam is not possible initially. After pain was treated, he was examined and claimed to have generalized pain in the abdomen and lower chest that was somewhat tenderness to palpation as well. He denied any vomiting, diarrhea, constipation, or urinary symptoms. He is afebrile. Caregiver reports that he is a daily alcohol (Rum) consumer. Allergies and Home Medications Allergies Coded Allergies: No Known Drug Allergies (Unverified , 04/11/11) Patient Home Medication List Home Medication List Reviewed: Yes Acetaminophen (Tylenol Extra Strength) 500 Mg Tablet, 1,000 MG PO Q8H PRN for PAIN-MILD (1-4), (Reported) Entered as Reported by: BETTY SALINAS on 12/05/19 0854 Bupropion HCl (Bupropion HCl Sr) 150 Mg Tablet.er, 150 MG PO HS, (Reported) Entered as Reported by: BETTY SALINAS on 12/05/19 0905 Bupropion HCl (Bupropion HCl Sr) 150 Mg Tablet.er, 300 MG PO DAILY, (Reported) Entered as Reported by: BETTY SALINAS on 12/05/19 0905 Cyclobenzaprine HCl (Cyclobenzaprine HCl) 10 Mg Tablet, 10 MG PO Q8H PRN for SPASMS Prescribed by: NI CANTRELL on 08/30/21 1429 Hydrocodone/Acetaminophen (Hydrocodone-Acetamin 5-325 mg) 5 Mg-325 Mg Tablet, 1- 2 TAB PO Q6H PRN for PAIN-MODERATE (5-7) Prescribed by: NI CANTRELL on 08/30/21 1429 Ibuprofen (Ibuprofen) 200 Mg Tablet, 400-600 MG PO Q8H PRN for PAIN-MILD (1-4), (Reported) Entered as Reported by: BETTY SALINAS on 12/05/19 0854 Ondansetron (Ondansetron Odt) 4 Mg Tab.rapdis, 4 MG PO Q4H PRN for NAUSEA/VOMITING-1ST LINE, (Reported) Entered as Reported by: BETTY SALINAS on 12/05/19 0854 Polyethylene Glycol 3350 (Miralax) 17 Gm Powd.pack, 17 GM PO BID, (Reported) Entered as Reported by: BETTY SALINAS on 12/05/19 0854 Rabeprazole Sodium (Rabeprazole Sodium) 20 Mg Tablet.dr, 20 MG PO DAILY, (Reported) Entered as Reported by: BARBARA COX on 12/03/19 1331 Review of Systems Constitutional: no symptoms reported EENTM: no symptoms reported Respiratory: no symptoms reported Cardiovascular: no symptoms reported Gastrointestinal: see HPI Genitourinary: no symptoms reported Musculoskeletal: see HPI Skin: no symptoms reported Psychiatric/Neurological: See HPI Past Lrulfve-Smxkhd-[id number] Hx Patient Social History Substance use?: No Alcohol Use?: Yes Alcohol type: Hard Liquor Alcohol Frequency: Daily Immunizations Up To Date Tetanus Booster (TDap): Unknown Seasonal Allergies Seasonal Allergies: No Past Medical History Surgeries: Yes (IVANNA INGUINAL HERNIA REPAIR;BACK SURGERY X 2-ANT & POST APPROACH;R ROT CUFF) Abdominal, Orthopedic Respiratory: Yes (tobaccoism) Cardiac: No Neurological: No Reproductive Disorders: No Sexually Transmitted Disease: No Genitourinary: Yes (LITHOTRIPSY 2011) Kidney Stones Gastrointestinal: Yes (LEFT INGUINAL HERNIA REPAIR;GASTRITIS) Abdominal Hernia, Gastroesophageal Reflux, Chronic Constipation, Polyps, Ulcer Musculoskeletal: Yes (BACK SURGERY X 2) Degenerate Disk Disease, Arthritis, Chronic Back Pain Endocrine: No HEENT: No Loss of Vision: Denies Cancer: Yes (BASAL CELL) Skin Did You Recieve Any Treatments: Yes What Type of Treatment Did You: Surgical Intervention Psychosocial: Yes (alcohol dependence) Depression Family Medical History No Pertinent Family Hx SOCIAL HISTORY: -DRINKS AT LEAST A PINT OF RUM A DAY -DENIES DRUG USE -SMOKES 2 PPD HAS BEEN ON DAILY DILAUDID IN PAST FOR BACK AND GENERALIZED PAIN, NOW ON TRAMADOL, OF 12/02/19 PSH: -BILATERAL INGUINAL HERNIA REPAIR -BACK SURGERY X 2--ANTERIOR AND POSTERIOR APPROACH--L4-5 LAMINECTOMY;L5-S1 FUSION -RIGHT SHOULDER ROTATOR CUFF REPAIR -EGD 2008--GASTRITIS -COLONOSCOPY--2011--POLYPECTOMY -LITHOTRIPSY 2011 -RIGHT KNEE SCOPE -REMOVAL OF BASAL CELL SKIN CANCER Physical Exam Vital Signs Capillary Refill : Height, Weight, BMI Height: 5'9.00" Weight: 175lbs. oz. [id number]; 28.66 BMI Method:Stated General Appearance: WD/WN, Moderate Distress HEENT: PERRL/EOMI, Normal ENT Inspection Neck: Normal Inspection Cardiovascular: Regular Rate, Rhythm, No Edema, No Murmur Respiratory: Lungs Clear, Normal Breath Sounds, No Accessory Muscle Use, Other (Chest mildly tender in the lower anterior portion) Gastrointestinal: Non Tender, Abnormal Bowel Sounds (Decreased); No Distended; Tenderness (Mild, generalized) Back: Normal Inspection, Other (No specific point tenderness in the lumbar or t horacic spine or in the paraspinous muscles) Extremity: Normal Inspection, No Pedal Edema Neurologic/Psychiatric: Alert, No Motor/Sensory Deficits, 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 Norm as Tested, Other (Agitated, persistently yelling and writhing) Skin: Normal Color, Warm/Dry Progress/Results/Core Measures Results/Orders Lab Results Laboratory Tests Test 08/30/21 10:56 08/30/21 12:35 Range/Units White Blood Count 6.9 4.3-11.0 10^3/uL Red Blood Count 3.51 L 4.30-5.52 10^6/uL Hemoglobin 13.5 13.3-17.7 g/dL Hematocrit 39 L 40-54 % Mean Corpuscular Volume 110 H 80-99 fL Mean Corpuscular Hemoglobin 39 H 25-34 pg Mean Corpuscular Hemoglobin Concent 35 32-36 g/dL Red Cell Distribution Width 13.1 10.0-14.5 % Platelet Count 194 130-400 10^3/uL Mean Platelet Volume 9.4 9.0-12.2 fL Immature Granulocyte % (Auto) 0 % Neutrophils (%) (Auto) 74 42-75 % Lymphocytes (%) (Auto) 17 12-44 % Monocytes (%) (Auto) 8 0-12 % Eosinophils (%) (Auto) 0 0-10 % Basophils (%) (Auto) 0 0-10 % Neutrophils # (Auto) 5.1 1.8-7.8 10^3/uL Lymphocytes # (Auto) 1.2 1.0-4.0 10^3/uL Monocytes # (Auto) 0.6 0.0-1.0 10^3/uL Eosinophils # (Auto) 0.0 0.0-0.3 10^3/uL Basophils # (Auto) 0.0 0.0-0.1 10^3/uL Immature Granulocyte # (Auto) 0.0 0.0-0.1 10^3/uL Sodium Level 146 H 135-145 MMOL/L Potassium Level 3.2 L 3.6-5.0 MMOL/L Chloride Level 106 98-107 MMOL/L Carbon Dioxide Level 22 21-32 MMOL/L Anion Gap 18 H 5-14 MMOL/L Blood Urea Nitrogen 12 7-18 MG/DL Creatinine 0.77 0.60-1.30 MG/DL Estimat Glomerular Filtration Rate 96 BUN/Creatinine Ratio 16 Glucose Level 114 H 70-105 MG/DL Calcium Level 9.3 8.5-10.1 MG/DL Corrected Calcium 9.5 8.5-10.1 MG/DL Total Bilirubin 0.9 0.1-1.0 MG/DL Aspartate Amino Transf (AST/SGOT) 32 5-34 U/L Alanine Aminotransferase (ALT/SGPT) 21 0-55 U/L Alkaline Phosphatase 64 40-136 U/L C-Reactive Protein High Sensitivity 0.50 0.00-0.50 MG/DL Total Protein 6.8 6.4-8.2 GM/DL Albumin 3.8 3.2-4.5 GM/DL Serum Alcohol < 10 <10 MG/DL Urine Color YELLOW Urine Clarity CLEAR Urine pH 7.5 5-9 Urine Specific [place] 1.025 H 1.016-1.022 Urine Protein NEGATIVE NEGATIVE Urine Glucose (UA) NEGATIVE NEGATIVE Urine Ketones 1+ H NEGATIVE Urine Nitrite NEGATIVE NEGATIVE Urine Bilirubin NEGATIVE NEGATIVE Urine Urobilinogen 0.2 < = 1.0 MG/DL Urine Leukocyte Esterase NEGATIVE NEGATIVE Urine RBC (Auto) TRACE-I H NEGATIVE Urine RBC RARE /HPF Urine WBC RARE /HPF Urine Squamous Epithelial Cells RARE /HPF Urine Crystals NONE /LPF Urine Bacteria NEGATIVE /HPF Urine Casts NONE /LPF Urine Mucus NEGATIVE /LPF Urine Culture Indicated NO Urine Opiates Screen POSITIVE H NEGATIVE Urine Oxycodone Screen NEGATIVE NEGATIVE Urine Methadone Screen NEGATIVE NEGATIVE Urine Propoxyphene Screen NEGATIVE NEGATIVE Urine Barbiturates Screen NEGATIVE NEGATIVE Ur Tricyclic Antidepressants Screen NEGATIVE NEGATIVE Urine Phencyclidine Screen NEGATIVE NEGATIVE Urine Amphetamines Screen NEGATIVE NEGATIVE Urine Methamphetamines Screen NEGATIVE NEGATIVE Urine Benzodiazepines Screen NEGATIVE NEGATIVE Urine Cocaine Screen NEGATIVE NEGATIVE Urine Cannabinoids Screen NEGATIVE NEGATIVE My Orders Orders - NI ARIZMENDI MD Fentanyl Inj (Sublimaze Injection) (08/30/21 11:00) Alcohol (08/30/21 10:50) Cbc With Automated Diff (08/30/21 10:50) Comprehensive Metabolic Panel (08/30/21 10:50) Hs C Reactive Protein (08/30/21 10:50) Drug Screen Stat (Urine) (08/30/21 10:50) Ua Culture If Indicated (08/30/21 10:50) Ed Iv/Invasive Line Start (08/30/21 10:50) Ondansetron Injection (Zofran Injectio (08/30/21 11:15) Morphine Injection (Morphine Injection (08/30/21 11:09) Lorazepam Injection (Ativan Injection) (08/30/21 11:45) Lorazepam Injection (Ativan Injection) (08/30/21 12:30) Hydromorphone Injection (Dilaudid Inject (08/30/21 12:30) Ct Chest/Abdomen/Pelvis W (08/30/21 12:25) Iohexol Injection (Omnipaque 350 Mg/Ml 1 (08/30/21 12:30) Received Contrast (Hold Metformin- Contr (08/30/21 12:30) Ns (Ivpb) (Sodium Chloride 0.9% Ivpb Bag (08/30/21 12:30) Sodium Chloride Flush (Catheter Flush Sy (08/30/21 12:30) Potassium Chloride (Tablet) (Klor Con Ta (08/30/21 14:30) Medications Given in ED Progress Progress Note : Progress Note Patient was given multiple doses of opioids to calm him down and control his pain we started with fentanyl 75 mcg, then morphine 5 mg, then Dilaudid 0.25 mg. He developed nausea and was given Zofran. Ativan was eventually given as well to help calm his agitation. Pain seemed to abruptly dissipate and in a fashion that was not necessarily correlated with his doses of pain medication. Patient then stated he was ready to go home. Due to the vague nature of the pain and inability to pinpoint a source of pain, CT of the chest, abdomen, and pelvis was obtained. A compression deformity at T9 was the only pathology identified that seem to explain his pain. Hypokalemia was noted and potassium was replaced orally. He was advised to follow-up with his primary care provider to discuss treatment more which might include MRI and referral for kyphoplasty. A liver lesion was also noted that was too small to characterize. I discussed this with patient and his care provider and advised that follow-up needed to be arranged for 6 months from now. Diagnostic Imaging Diagonstic Imaging: CT Plain Films/CT/US/NM/MRI: chest, abdomen, pelvis Comments CT scan viewed by me and report reviewed. See report below: NAME: SURI GARCIA [facility] REC#: [id number] PT STATUS: DEP ER : [id number] PHYSICIAN: NI ARIZMENDI MD ADMIT DATE: 08/30/21/ER Signed Date of Exam:08/30/21 CT CHEST/ABDOMEN/PELVIS W EXAMINATION: CT chest, abdomen and pelvis with intravenous contrast. TECHNIQUE: Multiple contiguous axial images were obtained through the chest, abdomen and pelvis after the uneventful administration of intravenous contrast. All CT scans use one or more of the following dose optimizing techniques: Automated exposure control, MA and/or KvP adjustment based on patient size and exam type or iterative reconstruction. HISTORY: Chest and abdominal pain. COMPARISON: 12/02/2019. FINDINGS: There is mild pulmonary edema as evidenced by septal line thickening. There is mild emphysema. No pneumonia. No pleural effusion. No pneumothorax. No suspicious nodules. There is no axillary or supraclavicular lymphadenopathy. A 13 mm right upper paratracheal lymph node previously measured 11 mm. Heart size is normal. There are severe coronary artery calcifications. No pericardial effusion. Aorta is normal in caliber. There is a new indeterminate 7 mm segment IVb liver lesion. It is too small to fully characterize. There is no biliary ductal dilation. Gallbladder is normal. Pancreas is normal. Spleen is normal. Adrenal glands are normal. The kidneys are normal. There is no hydronephrosis. Urinary bladder is normal. Bowel is normal in caliber without obstruction or inflammation. No free fluid or air. No abdominal or pelvic lymphadenopathy. Aorta is normal in caliber without aneurysm. There are no suspicious osseous lesions. There has been a lumbar spine fusion. There is a mild T9 compression fracture, age indeterminate but new from prior exam. IMPRESSION: 1. Mild pulmonary edema. 2. New small indeterminate liver lesion, too small to characterize. Six-month follow-up liver CT or MRI is recommended. 3. Age-indeterminate but new from 2020 mild T9 compression fracture. Dictated by: Dictated on workstation # [id number] Dict: 08/30/21 1317 Trans: 08/30/21 1629 [id number] Interpreted by: GEOVANNA AARON MD Electronically signed by: GEOVANNA AARON MD 08/30/21 1629 Departure Impression Primary Impression: Compression fracture of T9 vertebra Qualified Codes: S22.070A - Wedge compression fracture of T9-T10 vertebra, initial encounter for closed fracture Additional Impressions: Back pain Qualified Codes: M54.50 - Low back pain, unspecified Abdominal pain Qualified Codes: R10.84 - Generalized abdominal pain Hypokalemia Liver lesion Disposition: HOME, SELF-CARE Condition: Improved Departure-Patient Inst. Decision time for Depature: 14:26 Referrals: MAXIMILIAN HERRERA MD (PCP/Family) Primary Care Physician Patient Instructions: Vertebral Compression Fracture, Cirrhosis (DC) Add. Discharge Instructions: Drink plenty of clear liquids to stay well-hydrated. Use your pain medication as prescribed. You may use the cyclobenzaprine muscle relaxer for spasms. Follow-up with your primary care provider soon as possible. Call this afternoon or early Thursday morning for an appointment time. Additionally you have a small lesion on your liver. This needs to be evaluated with imaging again in 6 months. Please work with your primary care provider to make these arrangements. Return to the ER if you have worsening symptoms. All discharge instructions reviewed with patient and/or family. Voiced understanding. Scripts Cyclobenzaprine HCl (Cyclobenzaprine HCl) 10 Mg Tablet 10 MG PO Q8H PRN for SPASMS, #10 TAB 0 Refills Prov: NI ARIZMENDI MD 08/30/21 Hydrocodone/Acetaminophen (Hydrocodone-Acetamin 5-325 mg) 5 Mg-325 Mg Tablet 1-2 TAB PO Q6H PRN for PAIN-MODERATE (5-7), #20 TAB Prov: NI ARIZMENDI MD 08/30/21 Copy Copies To 1: MAXIMILIAN HERRERA MD, JOSHUA T MD Aug 30, 2021 14:22
[2021-08-30] MEDS ORDERED: ACHD5005 PO (14:29)
[2021-08-30] MEDS ORDERED: CYCL10TA25 PO (14:29)
[2021-08-30] MEDS ORDERED: KCL 10 MEQ TAB (MICRO K) PO ONE (14:30)
[2021-08-30 14:50] VITALS: BP 167/109
== END 2021-08-30 14:50 | disposition home or self-care (01) ==
LOC: EDUNIT# 10:22 → ER 10:23
DX: S22.070A Wedge compression fracture of T9-T10 vertebra, initial encounter for closed fracture (principal); R10.84 Generalized abdominal pain; E87.6 Hypokalemia; K76.89 Other specified diseases of liver; F10.20 Alcohol dependence, uncomplicated; Y90.0 Blood alcohol level of less than 20 mg/100 ml; X58.XXXA Exposure to other specified factors, initial encounter
CPT/HCPCS: 71260; 74177; 80053; 80306; 81000; 85025; 86141; 99284; G0480; 36415; 80320; 99282

== ENCOUNTER → 2021-11-26 | Outpatient (CLI) | payer MEDICARE, OTHER ==
[~2021-11-26] MED LIST changes: +CYCL10TA25 PO
--- NOTE | 2021-11-26 15:45 | Diagnostic Imaging Report ---
INDICATION: M80.08XA, personal history of a vertebral fracture, family history of a hip fracture. COMPARISON: None available FINDINGS: AP Spine L1-L4: [BMD (g/cm2): NA] [T-Score: NA] [Z-Score: NA] [BMD Previous: NA] [BMD % Change: NA] LT Hip Neck: [BMD (g/cm2): 0.894] [T-Score: -1.4] [Z-Score: -0.8] LT Hip Total: [BMD (g/cm2):0.818] [T-Score:-1.9] [Z-Score: -0.8] [BMD Previous: NA] [BMD % Change: NA] RT Hip Neck: [BMD (g/cm2):0.931] [T-Score:-1.2] [Z-Score:-0.5] RT Hip Total: [BMD (g/cm2):0.871] [T-score:-1.5] [Z-Score:-0.4] [BMD Previous:NA] [BMD % Change:NA] *Indicates significant change from prior examination based on 95% confidence level. World Health Organization criteria for BMD interpretation classify patients as Normal (T-score at or above -1.0), Osteopenic (T-score between -1.0 and -2.5) or Osteoporotic (T-score at or below -2.5). LIMITATIONS AND MODIFICATION: The lumbar spine was not evaluated secondary to postsurgical changes. FRACTURE RISK (FRAX SCORE): The ten year probability of (%): Major Osteoporotic Fracture: [15.9] Hip Fracture: [7.4] IMPRESSION: 1. Osteopenia (Low bone mass). 2. Baseline examination. 3. See below National Osteoporosis Foundation guidelines on when to potentially initiate pharmacologic therapy. Based on the National Osteoporosis Foundation Guidelines, pharmacologic treatment should be initiated in any of the following, unless clinical conditions suggest otherwise: * Any patient with prior fragility fracture of the hip or vertebrae. A spine fracture indicates 5X risk for subsequent spine fracture and 2X risk for subsequent hip fracture. * Osteoporosis (T-score <-2.5). * Postmenopausal women and men age 50 and older with low bone mass/osteopenia (T-score between -1.0 and -2.5) by DXA and 10-year major osteoporotic fracture greater than 20% or a 10-year probability of hip fracture greater than 3%. These fracture risks are supplied above in the FRAX score, if applicable. * Clinician judgement and/or patient preferences may indicate treatment for people with 10-year fracture probabilities above or below these levels. Dictated by: Dictated on workstation # [id number]
== END ==
LOC: RAD 12:02
PROVIDERS: ATTEND Nurse Practitioner Family
DX: M80.08XA Age-related osteoporosis with current pathological fracture, vertebra(e), initial encounter for fracture (principal); X58.XXXA Exposure to other specified factors, initial encounter; M85.80 Other specified disorders of bone density and structure, unspecified site
CPT/HCPCS: 77080

== ENCOUNTER → 2022-05-16 | Outpatient (CLI) | payer MEDICARE, OTHER ==
--- NOTE | 2022-05-16 11:09 | Diagnostic Imaging Report ---
CLINICAL INDICATION: Patient with multiple falls, bilateral hip and low back pain. EXAM: X-ray of the lumbar spine, 3 views. COMPARISON: CT scan of the chest, abdomen, and pelvis with contrast dated 08/20/2021.. FINDINGS: There is L4-S1 posterior lumbar interbody fusion. There is no hardware complication seen. There are hypertrophic spurs throughout the lumbar spine and facet arthropathy. There is sclerosis and severe loss of disk space height involving the L2-L3 and L3-L4 endplate regions. There is interval development of a roughly 50-60% anterior wedge compression fracture deformity involving the L1 vertebra and a retropulsed fracture component. This is of unknown age. There are multiple surgical rosalba overlying the pelvis. IMPRESSION: 1: There is L4-S1 posterior lumbar interbody fusion. There is no hardware complication. 2: There is interval development of an anterior wedge compression fracture deformity involving the L1 vertebra of unknown age. 3: There is multilevel lumbar spine degenerative disease. Dictated by: Dictated on workstation # [id number]
--- NOTE | 2022-05-16 11:15 | Diagnostic Imaging Report ---
CLINICAL INDICATION: Patient with multiple falls with bilateral hip and low back pain. EXAM: X-ray of the pelvis, AP view, and x-ray of both hips, AP and frog-leg views. COMPARISON: CT scan of the chest, abdomen, and pelvis with contrast dated 08/30/2021. FINDINGS: There is no acute fracture or dislocation. There are minimal-sized spurs involving the left femoral head/neck junction region. There is enthesopathy involving the ischial regions bilaterally. There are degenerative spurs involving bilateral sacroiliac joint regions. Partially visualized posterior spinal fusion hardware region. IMPRESSION: There is degenerative disease with no acute fracture or dislocation. Dictated by: Dictated on workstation # [id number]
== END ==
LOC: RAD 10:26
PROVIDERS: ATTEND Nurse Practitioner Family
DX: M47.816 Spondylosis without myelopathy or radiculopathy, lumbar region (principal); M48.56XA Collapsed vertebra, not elsewhere classified, lumbar region, initial encounter for fracture; M16.0 Bilateral primary osteoarthritis of hip; R29.6 Repeated falls
CPT/HCPCS: 72100; 73523

== ENCOUNTER 2022-06-06 10:02 | Inpatient (IN) | payer MEDICARE, OTHER ==
[~2022-06-06] VITALS: Ht 170 cm; Wt 78.0 kg
--- NOTE | 2022-06-06 10:29 | ED Trauma-Multisystem ---
General Chief Complaint: Trauma-Non Activation Stated Complaint: FALL Nursing Triage Note: PT TO [facility] BY [facility] WITH CC OF BEING FOUND DOWN ON THE FLOOR THIS MORNING, LAST MEDS IN THE BOX WERE TAKEN THURSDAY, PT HAS AMS Source of Information: EMS History of Present Illness Date Seen by Provider: Jun 06, 2022 Time Seen by Provider: 10:29 Initial Comments Patient is a 71-year-old male brought to the emergency room by ambulance after being found down from a welfare check. Patient cannot provide details of his fall. He lives at home, food delivery had not been done for a few days so they called police for a welfare check. Patient was found laying on the floor on the carpet, unable to get up, confused. Medications last taken according to his pillboxes were Thursday. Today is Thursday. Patient is alert to location and his name. He denies any complaints of pain. He does have scattered bruises and mild abrasions. Vital signs are stable. No obvious outward signs of trauma to the head, face, neck. No chest pain, shortness of breath. No nausea. Williamson catheter was placed with dark yellow urine returning. Bruise to the left knee couple of abrasions on the left lower leg. Nursing staff reported a couple of abrasions to the sacral area. Occurred: Other (unsure) Pain/Injury Location: Back Method of Injury: Unknown Loss of Consciousness: Unsure Allergies and Home Medications Allergies Coded Allergies: No Known Drug Allergies (Unverified , 04/11/11) Patient Home Medication List Home Medication List Reviewed: Yes Acetaminophen (Tylenol Extra Strength) 500 Mg Tablet, 1,000 MG PO Q8H PRN for PAIN-MILD (1-4), (Reported) Entered as Reported by: BETTY SALINAS on 12/05/19 0854 Last Action: Reviewed Ascorbate Calcium (Vitamin C) 500 Mg Tablet, 500 MG PO HS, (Reported) Entered as Reported by: BETTY SALINAS on 06/06/22 1604 Last Action: Reviewed Bupropion HCl (Bupropion HCl Sr) 150 Mg Tablet.er, 150 MG PO HS, (Reported) Entered as Reported by: BETTY SALINAS on 12/05/19 0905 Last Action: Reviewed Bupropion HCl (Bupropion HCl Sr) 150 Mg Tablet.er, 300 MG PO DAILY, (Reported) Entered as Reported by: BETTY SALINAS on 12/05/19904 Last Action: Reviewed Calcium Carb/D3/Magnesium/Zinc (Alex Mag Zinc + D Tablet) 333MG-133 Tablet, 1 EACH PO BID, (Reported) Entered as Reported by: BETTY SALINAS on 06/06/221603 Last Action: Reviewed Chlorpheniramine Maleate (Chlortabs) 4 Mg Tablet, 4 MG PO BID, (Reported) Entered as Reported by: BETTY SALINAS on 06/06/221603 Last Action: Reviewed Cyclobenzaprine HCl (Cyclobenzaprine HCl) 5 Mg Tablet, 5-10 MG PO BID PRN for MUSCLE SPASMS, (Reported) Entered as Reported by: BETTY SALINAS on 06/06/221603 Last Action: Reviewed Diclofenac Sodium (Diclofenac Sodium) 1 % Gel..gram., 1 APPLIC TOP QID PRN for PAIN BREAKTROUGH, (Reported) Entered as Reported by: BETTY SALINAS on 06/06/221603 Last Action: Reviewed Furosemide (Furosemide) 20 Mg Tablet, 20 MG PO DAILY, (Reported) Entered as Reported by: BETTY SALINAS on 06/06/221603 Last Action: Reviewed Gabapentin (Gabapentin) 100 Mg Capsule, 200 MG PO DAILY, (Reported) Entered as Reported by: BETTY SALINAS on 06/06/221603 Last Action: Reviewed Gabapentin (Gabapentin) 100 Mg Capsule, 100 MG PO HS, (Reported) Entered as Reported by: BETTY SALINAS on 06/06/221603 Last Action: Reviewed Guaifenesin (Mucinex) 600 Mg Tab.er.12h, 600 MG PO Q12H, (Reported) Entered as Reported by: BETTY SALINAS on 06/06/221603 Last Action: Reviewed Levothyroxine Sodium (Levothyroxine Sodium) 25 Mcg Tablet, 25 MCG PO DAILY, (Reported) Entered as Reported by: BETTY SALINAS on 06/06/221603 Last Action: Reviewed Naltrexone HCl (Naltrexone HCl) 50 Mg Tablet, 50 MG PO HS, (Reported) Entered as Reported by: BETTY SALINAS on 06/06/221603 Last Action: Reviewed Naproxen Sodium (Naproxen Sodium) 220 Mg Tablet, 220 MG PO BID PRN for PAIN-MILD (1-4), (Reported) Entered as Reported by: BETTY SALINAS on 06/06/22 160 Last Action: Reviewed Ondansetron (Ondansetron Odt) 4 Mg Tab.rapdis, 4 MG PO Q4H PRN for NAUSEA/VOMITING-1ST LINE, (Reported) Entered as Reported by: BETYT SALINAS on 12/05/19 0854 Last Action: Reviewed Polyethylene Glycol 3350 (Miralax) 17 Gram Powd.pack, 17 GM PO DAILY, (Reported) Entered as Reported by: BETTY SALINAS on 12/05/19 0854 Last Action: Reviewed Potassium Chloride (Potassium Chloride) 10 Meq Capsule.er, 10 MEQ PO HS, (Reported) Entered as Reported by: BETTY SALINAS on 06/06/22 160 Last Action: Reviewed Propranolol HCl (Propranolol HCl ER) 60 Mg Cap.sa.24h, 60 MG PO 1400, (Reported) Entered as Reported by: BETTY SALINAS on 06/06/22 160 Last Action: Reviewed Rabeprazole Sodium (Rabeprazole Sodium) 20 Mg Tablet.dr, 20 MG PO DAILY, (Reported) Entered as Reported by: BARBARA COX on 12/03/19 1331 Last Action: Reviewed Tramadol HCl (Tramadol HCl) 50 Mg Tablet, 50-100 MG PO Q6H PRN for PAIN-MODERATE (5-7), (Reported) Entered as Reported by: BETTY SALINAS on 06/06/22 160 Last Action: Reviewed Vitamin B Complex (B Complex) 1 Each Tablet, 1 EACH PO DAILY, (Reported) Entered as Reported by: BETTY SALINAS on 06/06/22 160 Last Action: Reviewed Discontinued Medications Cyclobenzaprine HCl (Cyclobenzaprine HCl) 10 Mg Tablet, 10 MG PO Q8H PRN for SPASMS Discontinued Reason: Duplicate Order Prescribed by: NI CANTRELL on 08/30/21 6956 Last Action: Discontinued Hydrocodone/Acetaminophen (Hydrocodone-Acetamin 5-325 mg) 5 Mg-325 Mg Tablet, 1- 2 TAB PO Q6H PRN for PAIN-MODERATE (5-7) Discontinued Reason: Duplicate Order Prescribed by: NI CANTRELL on 08/30/21 142 Last Action: Discontinued Ibuprofen (Ibuprofen) 200 Mg Tablet, 400-600 MG PO Q8H PRN for PAIN-MILD (1-4), (Reported) Discontinued Reason: Duplicate Order Entered as Reported by: BETTY SALINAS on 12/05/19 0628 Last Action: Discontinued Review of Systems Review of Systems Constitutional: see HPI HPI/ROS limited secondary to apparent confusion Past Elwmdhl-Npvplp-Bcdzme Hx Immunizations Up To Date Tetanus Booster (TDap): Unknown Seasonal Allergies Seasonal Allergies: No Past Medical History Surgery/Hospitalization HX: PT ALTERED MENTAL AT TRIAGE Surgeries: Yes (IVANNA INGUINAL HERNIA REPAIR;BACK SURGERY X 2-ANT & POST APPROACH;R ROT CUFF) Abdominal, Orthopedic Respiratory: Yes (tobaccoism) Cardiac: No Neurological: No Reproductive Disorders: No Sexually Transmitted Disease: No Genitourinary: Yes (LITHOTRIPSY 2011) Kidney Stones Gastrointestinal: Yes (LEFT INGUINAL HERNIA REPAIR;GASTRITIS) Abdominal Hernia, Gastroesophageal Reflux, Chronic Constipation, Polyps, Ulcer Musculoskeletal: Yes (BACK SURGERY X 2) Degenerate Disk Disease, Arthritis, Chronic Back Pain Endocrine: No HEENT: No Loss of Vision: Denies Cancer: Yes (BASAL CELL) Skin Did You Recieve Any Treatments: Yes What Type of Treatment Did You: Surgical Intervention Psychosocial: Yes (alcohol dependence) Depression Family Medical History No Pertinent Family Hx SOCIAL HISTORY: -DRINKS AT LEAST A PINT OF RUM A DAY -DENIES DRUG USE -SMOKES 2 PPD HAS BEEN ON DAILY DILAUDID IN PAST FOR BACK AND GENERALIZED PAIN, NOW ON TRAMADOL, OF 12/02/19 PSH: -BILATERAL INGUINAL HERNIA REPAIR -BACK SURGERY X 2--ANTERIOR AND POSTERIOR APPROACH--L4-5 LAMINECTOMY;L5-S1 FUSION -RIGHT SHOULDER ROTATOR CUFF REPAIR -EGD 2008--GASTRITIS -COLONOSCOPY--2011--POLYPECTOMY -LITHOTRIPSY 2011 -RIGHT KNEE SCOPE -REMOVAL OF BASAL CELL SKIN CANCER Physical Exam Vital Signs Vital Signs - First Documented 06/06/22 10:07 Temp 36.8 Pulse 84 Resp 18 B/P (MAP) 133/95 (108) Pulse Ox 95 O2 Delivery Room Air Height, Weight, BMI Height: 5'9.00" Weight: 175lbs. oz. 79.439377xa; 26.00 BMI Method:Stated General Appearance: WD/WN, Anxious, Chronically ill Head: No Evidence of Injury; No Centeno's Sign, No Contusions, No Flap, No Raccoon Eyes Eyes: Bilateral Eye Normal Inspection, Bilateral Eye PERRL Ears, Nose, Throat: Hearing Grossly Normal, Other (extremely dry oral mucosa and poor dentition) Neck: Full Range of Motion Cardiovascular: Regular Rate, Rhythm, Normal Peripheral Pulses Respiratory: Lungs Clear, Normal Breath Sounds, No Accessory Muscle Use, No Respiratory Distress Gastrointestinal: Normal Bowel Sounds, Soft; No Distended Extremity: Normal Inspection, Normal Range of Motion Neurologic/Psychiatric: Alert, Normal Mood/Affect, Other (no gross mototr or sensory deficits appreciated) Skin: Normal Color, Warm/Dry, Other (scattered mild ecchymoses to extremities and back/shoulder blades) Jacquelin Coma Score Best Eye Response (Bayard): (4) Open Spontaneously Best Verbal Response (Jacquelin): (4) Confused Conversation Best Motor Response (Bayard): (6) Obeys Commands Bayard Total: 14 Focused Exam Lactate Level 06/06/22 10:40: Lactic Acid Level 3.05*H 06/06/22 12:55: Lactic Acid Level 1.54 Lactic Acid Level Laboratory Tests Test 06/06/22 10:40 06/06/22 12:55 Lactic Acid Level 3.05 MMOL/L (0.50-2.00) *H 1.54 MMOL/L (0.50-2.00) Progress/Results/Core Measures Results/Orders Lab Results Laboratory Tests Test 06/06/22 10:35 06/06/22 10:40 06/06/22 12:55 Range/Units Urine Color ORANGE Urine Clarity CLEAR Urine pH 6.0 5-9 Urine Specific [place] 1.025 H 1.016-1.022 Urine Protein TRACE H NEGATIVE Urine Glucose (UA) NEGATIVE NEGATIVE Urine Ketones 2+ H NEGATIVE Urine Nitrite NEGATIVE NEGATIVE Urine Bilirubin 2+ H NEGATIVE Urine Urobilinogen 4.0 < = 1.0 MG/DL Urine Leukocyte Esterase NEGATIVE NEGATIVE Urine RBC (Auto) NEGATIVE NEGATIVE Urine RBC NONE /HPF Urine WBC RARE /HPF Urine Crystals PRESENT H /LPF Urine Calcium Oxalate Crystals FEW H /LPF Urine Amorphous Sediment FEW KEYON URATES H /LPF Urine Bacteria TRACE /HPF Urine Casts PRESENT /LPF Urine Hyaline Casts 0-2 H /LPF Urine Mucus LARGE H /LPF Urine Culture Indicated CULTURE PENDING White Blood Count 7.2 4.3-11.0 10^3/uL Red Blood Count 4.42 4.30-5.52 10^6/uL Hemoglobin 16.2 13.3-17.7 g/dL Hematocrit 44 40-54 % Mean Corpuscular Volume 101 H 80-99 fL Mean Corpuscular Hemoglobin 37 H 25-34 pg Mean Corpuscular Hemoglobin Concent 37 H 32-36 g/dL Red Cell Distribution Width 11.8 10.0-14.5 % Platelet Count 272 130-400 10^3/uL Mean Platelet Volume 10.0 9.0-12.2 fL Immature Granulocyte % (Auto) 0 % Neutrophils (%) (Auto) 54 42-75 % Lymphocytes (%) (Auto) 30 12-44 % Monocytes (%) (Auto) 10 0-12 % Eosinophils (%) (Auto) 6 0-10 % Basophils (%) (Auto) 0 0-10 % Neutrophils # (Auto) 3.9 1.8-7.8 10^3/uL Lymphocytes # (Auto) 2.1 1.0-4.0 10^3/uL Monocytes # (Auto) 0.7 0.0-1.0 10^3/uL Eosinophils # (Auto) 0.4 H 0.0-0.3 10^3/uL Basophils # (Auto) 0.0 0.0-0.1 10^3/uL Immature Granulocyte # (Auto) 0.0 0.0-0.1 10^3/uL Prothrombin Time 14.7 12.2-14.7 SEC INR Comment 1.1 0.8-1.4 Activated Partial Thromboplast Time 32 24-35 SEC Sodium Level 143 135-145 MMOL/L Potassium Level 2.9 L 3.6-5.0 MMOL/L Chloride Level 102 98-107 MMOL/L Carbon Dioxide Level 25 21-32 MMOL/L Anion Gap 16 H 5-14 MMOL/L Blood Urea Nitrogen 17 7-18 MG/DL Creatinine 0.84 0.60-1.30 MG/DL Estimat Glomerular Filtration Rate 93 BUN/Creatinine Ratio 20 Glucose Level 87 70-105 MG/DL Lactic Acid Level 3.05 *H 1.54 0.50-2.00 MMOL/L Calcium Level 10.2 H 8.5-10.1 MG/DL Corrected Calcium 10.3 H 8.5-10.1 MG/DL Total Bilirubin 1.4 H 0.1-1.0 MG/DL Aspartate Amino Transf (AST/SGOT) 35 H 5-34 U/L Alanine Aminotransferase (ALT/SGPT) 41 0-55 U/L Alkaline Phosphatase 90 40-136 U/L Total Creatine Kinase 160 30-200 U/L Troponin I < 0.028 <0.028 NG/ML Total Protein 7.7 6.4-8.2 GM/DL Albumin 3.9 3.2-4.5 GM/DL Serum Alcohol < 10 <10 MG/DL My Orders Orders - CHELSY BAR MD Cbc With Automated Diff (06/06/22 10:40) Comprehensive Metabolic Panel (06/06/22 10:40) Blood Culture (06/06/22 10:40) Sputum Culture (06/06/22 10:40) Urinalysis (06/06/22 10:40) Urine Culture (06/06/22 10:40) Protime With Inr (06/06/22 10:40) Partial Thromboplastin Time (06/06/22 10:40) Chest 1 View, Ap/Pa Only (06/06/22 10:40) Ed Iv/Invasive Line Start (06/06/22 10:40) Ed Iv/Invasive Line Start (06/06/22 10:40) Vital Signs Adult Sepsis Patie Q15M (06/06/22 10:40) O2 (06/06/22 10:40) Remove Rings In Anticipation O (06/06/22 10:40) Lactic Acid Analyzer (06/06/22 10:40) Creatine Kinase (06/06/22 10:40) Troponin I Erick (06/06/22 10:40) Ekg Tracing (06/06/22 10:40) Catheter(Urinary) Insert & Ass 03,15 (06/06/22 10:40) Ns Iv 1000 Ml (Sodium Chloride 0.9%) (06/06/22 10:40) Alcohol (06/06/22 11:25) Ct Head Wo (06/06/22 11:26) Fentanyl Inj (Sublimaze Injection) (06/06/22 11:30) Ed Admission (Communication) (06/06/22 12:55) Magnesium (06/06/22 13:12) Medications Given in ED Vital Signs/I&O 06/06/22 06/06/22 10:07 11:30 Temp 36.8 36.8 Pulse 84 Resp 18 B/P (MAP) 133/95 (108) Pulse Ox 95 O2 Delivery Room Air 06/07/22 00:00 Intake Total 1000 ml Balance 1000 ml Blood Pressure Mean: 108 Admisison Planning May Need Admission (Planning): 12:07 Progress Progress Note #1: Time: 11:42 Progress Note Patient seen and evaluated by me, 71-year-old with a recent fall, confusion limited details. Evaluation today includes physical exam, CBC, Chem-12, total CK, troponin, EKG, urinalysis, alcohol level, coags, blood cultures, lactic acid, chest x-ray and CT head noncontrast. Physical exam findings pertinent for well-developed well-nourished 71-year-old male who is confused mildly with very dry oral mucosa. No obvious external signs of trauma about the head and neck. TMs are clear, no centeno sign or raccoon eyes. Neck is nontender, full range of motion, chest is nontender heart is regular, lungs are clear, abdomen is soft. 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 He is oriented to location and self. Further independent historian a friend who was contacted who stated that she saw him yesterday laying on the floor in his home, he refused to get up. She brought him medications and water. He had last been seen sitting in his recliner chair 4 days ago on Thursday. Had to have fallen at some point from Thursday to yesterday morning. She relates that he is a chronic alcoholic. Frequent falls. Differential diagnosis based on history and physical exam, dehydration, alcohol intoxication, concussion/head injury/intracranial hemorrhage/contusion/stroke. Acute renal failure due to dehydration. Labs reviewed, CBC is within normal limits, chemistry shows slightly decreased potassium at 2.9 with very minimally elevated total bilirubin and AST. Coags are normal. Urinalysis is very concentrated. CK is within normal limits. Troponin is undetectable. EKG shows sinus rhythm at 77 bpm without ectopy or ST segment change. Patient has been treated at this time with 2 L of normal saline, 50 mcg of fentanyl for low back pain which is chronic per review of the medical record after a fall resulting in a T9 compression fracture last summer in 2021. Progress Note #2: Time: 12:05 Progress Note discussed patient care with one of his daughters who lives in [place] (her is physician). patient not able to converse due to confusion. SHe and 2 sisters are next of kin. She states that patient does not have DPOA. SHe mentions long history of etoh abuse. History of TIA's. Initial ECG Impression Date: Jun 06, 2022 Initial ECG Impression Time: 10:48 Initial ECG Rate: 77 Initial ECG Rhythm: Normal Sinus Initial ECG Intervals: Normal Initial ECG Impression: Normal Diagnostic Imaging Diagonstic Imaging: Xray Plain Films/CT/US/NM/MRI: chest Comments [facility]. [place], [place] NAME: SURI GARCIA [facility] REC#: [id number] PT STATUS: REG ER : 1950 PHYSICIAN: CHELSY BAR MD ADMIT DATE: 06/06/22/ER Draft Date of Exam:06/06/22 CHEST 1 VIEW, AP/PA ONLY INDICATION: Altered mental status. EXAMINATION: Portable chest at 10:55 a.m. FINDINGS: Heart size and pulmonary vascularity are normal. There is some questionable infiltrate at the left lung base. There are old rib fractures of the left lower lateral thoracic cage. IMPRESSION: Questionable left lateral basilar infiltrate. Dictated on workstation # [id number] Dict: 06/06/22 1059 Trans: 06/06/22 1104 [id number] [id number] Interpreted by: BEATRIZ JONES MD Electronically signed by: Departure Communication (Admissions) Time/Spoke to Admitting Phy: 12:[address] Grossman; will do que'd orders; obs to medical Impression Primary Impression: Dehydration Additional Impression: Fall Qualified Codes: W19.XXXA - Unspecified fall, initial encounter Disposition: ADMITTED INPATIENT Condition: Stable Admissions Decision to Admit Reason: Admit from ER (General) Decision to Admit/Date: Jun 06, 2022 Time/Decision to Admit Time: 12:13 Departure-Patient Inst. Referrals: MAXIMILIAN HERRERA MD (PCP/Family) Primary Care Physician Copy Copies To 1: MAXIMILIAN HERRERA MD, KATHRYN M MD Jun 06, 2022 10:29
[2022-06-06] MEDS ORDERED: NS IV 1000 ML 1,000 ML IV STA (10:40)
[2022-06-06 10:51] LABS: CLARITY,URINE CLEAR; COLOR,URINE ORANGE; GLUCOSE, URINE (UA) NEGATIVE (NEGATIVE); KETONES,URINE 2+ (NEGATIVE); LEUKOCYTE ESTERASE ,URINE NEGATIVE (NEGATIVE); NITRITE,URINE NEGATIVE (NEGATIVE); PROTEIN,URINE TRACE (NEGATIVE)
[2022-06-06 10:51] LABS: BASOPHILS % (AUTO) 0 % (0-10); EOSINOPHILS # (AUTO) 0.4 10^3/uL (0.0-0.3); EOSINOPHILS % (AUTO) 6 % (0-10); HEMATOCRIT 44 % (40-54); HEMOGLOBIN 16.2 g/dL (13.3-17.7); LYMPHOCYTES # (AUTO) 2.1 10^3/uL (1.0-4.0); LYMPHOCYTES % (AUTO) 30 % (12-44); MEAN CORPUSCULAR HEMOGLOBIN 37 pg (25-34); MEAN CORPUSCULAR HGB CONC 37 g/dL (32-36); MEAN CORPUSCULAR VOLUME 101 fL (80-99); MONOCYTES # (AUTO) 0.7 10^3/uL (0.0-1.0); MONOCYTES % (AUTO) 10 % (0-12); NEUTROPHILS # (AUTO) 3.9 10^3/uL (1.8-7.8); NEUTROPHILS % (AUTO) 54 % (42-75); PLATELET COUNT 272 10^3/uL (130-400); WHITE BLOOD COUNT 7.2 10^3/uL (4.3-11.0)
[2022-06-06 10:55] LABS: ALBUMIN 3.9 GM/DL (3.2-4.5); CHLORIDE 102 MMOL/L (98-107); POTASSIUM 2.9 MMOL/L (3.6-5.0); SODIUM 143 MMOL/L (135-145)
[2022-06-06 10:57] LABS: CALCIUM 10.2 MG/DL (8.5-10.1)
[2022-06-06 10:58] LABS: GLUCOSE 87 MG/DL (70-105); INR 1.1 (0.8-1.4); PROTHROMBIN TIME PATIENT 14.7 SEC (12.2-14.7); TOTAL PROTEIN 7.7 GM/DL (6.4-8.2)
[2022-06-06 10:59] LABS: CARBON DIOXIDE 25 MMOL/L (21-32)
[2022-06-06 11:00] LABS: BILIRUBIN,TOTAL 1.4 MG/DL (0.1-1.0)
[2022-06-06 11:01] LABS: ALKALINE PHOSPHATASE 90 U/L (40-136); CREATININE SERUM 0.84 MG/DL (0.60-1.30); GFR ESTIMATED 93
[2022-06-06 11:03] LABS: BUN/CREATININE RATIO 20
[2022-06-06 11:04] LABS: ALANINE AMINOTRANSFERASE 41 U/L (0-55); CREATINE KINASE 160 U/L (30-200)
--- NOTE | 2022-06-06 11:04 | Diagnostic Imaging Report ---
INDICATION: Altered mental status. EXAMINATION: Portable chest at 10:55 a.m. FINDINGS: Heart size and pulmonary vascularity are normal. There is some questionable infiltrate at the left lung base. There are old rib fractures of the left lower lateral thoracic cage. IMPRESSION: Questionable left lateral basilar infiltrate. Dictated by: Dictated on workstation # [id number]
[2022-06-06 11:07] LABS: AMORPHOUS SEDIMENT,UR FEW AMOR URATES /LPF; CALCIUM OXALATE CRYSTALS,UR FEW /LPF; HYALINE CASTS, URINE 0-2 /LPF
[2022-06-06 11:08] LABS: BILIRUBIN,URINE 2+ (NEGATIVE)
[2022-06-06 11:09] LABS: BACTERIA,URINE TRACE /HPF; WBC,URINE RARE /HPF
[2022-06-06] MEDS ORDERED: fentaNYL INJ 100 MCG/2 ML AMP IVP ONE (11:30)
--- NOTE | 2022-06-06 12:06 | Diagnostic Imaging Report ---
INDICATION: Patient found down, altered mental status. TECHNIQUE: Multiple contiguous axial images were obtained through the brain without the use of intravenous contrast. Auto Exposure Controls were utilized during the CT exam to meet ALARA standards for radiation dose reduction. There is no previous study for comparison. FINDINGS: There are diffuse atrophic changes. There are patchy low-density changes throughout the deep white matter compatible with chronic ischemic change. There is ventricular prominence secondary to volume loss. There is no acute hemorrhage or subdural or epidural collection. Calvarial windows are unremarkable. IMPRESSION: Atrophic changes and chronic ischemic changes in the deep white matter. No acute intracranial abnormality. Dictated by: Dictated on workstation # [id number]
--- NOTE | 2022-06-06 13:13 | History & Physical-Hospitalist ---
History of Present Illness HPI/Chief Complaint Pt is a 71yoCM With a PMH alcohol dependence, depression who presented to the emergency department due to altered mental status. He currently lives alone and has a top hat body maker who checks on him regularly. Per report she checked on him yesterday earlier this week and he was down on the ground but did not want the ambulance call. She gave him some water and gave him his normal medications and left. Today a welfare check was called as he had not picked up his Meals on Wheels over the past couple of days and he was found down. He was confused and unable to get up. Despite the previous report that he was given his meds yesterday EMS noticed that his medications had not been taken since Thursday in his pillbox and today is Thursday. He is quite confused and brought to the emergency room for evaluation. In the ER had a CT of his head which was negative for intracranial hemorrhage or stroke. He was found to be quite dehydrated with a lactic acid of greater than 3. There is a questionable pneumonia on chest x-ray. He is being admitted for further management. Source: patient Date Seen 06/06/22 Time Seen by a Provider: 12:45 Attending Physician Jadon Clifford MD PCP Admitting Physician: Attending Physician: Referring Physician Date of Admission Home Medications & Allergies Home Medications Reviewed patient Home Medication Reconciliation performed by pharmacy medication reconciliations criminalist technician and/or nursing. Patients Allergies have been reviewed. Allergies Allergies Coded Allergies No Known Drug Allergies (Unverified04/11/11) Past Spemmcr-Dizfzz-Cqaipu Hx Immunizations Up To Date Date of Influenza Vaccine: Dec 14, 2010 Tetanus Booster (TDap): Unknown Seasonal Allergies Seasonal Allergies: No Current Status Primary Language: Slovenian Preferred Spoken Language: Slovenian Past Medical History Surgeries: Abdominal, Orthopedic Sexually Transmitted Disease: No Kidney Stones Abdominal Hernia, Gastroesophageal Reflux, Chronic Constipation, Polyps, Ulcer Degenerate Disk Disease, Arthritis, Chronic Back Pain Loss of Vision: Denies Skin Did You Recieve Any Treatments: Yes What Type of Treatment Did You: Surgical Intervention Depression Family Medical History No Pertinent Family Hx SOCIAL HISTORY: -DRINKS AT LEAST A PINT OF RUM A DAY -DENIES DRUG USE -SMOKES 2 PPD HAS BEEN ON DAILY DILAUDID IN PAST FOR BACK AND GENERALIZED PAIN, NOW ON TRAMADOL, OF 12/02/19 PSH: -BILATERAL INGUINAL HERNIA REPAIR -BACK SURGERY X 2--ANTERIOR AND POSTERIOR APPROACH--L4-5 LAMINECTOMY;L5-S1 FUSION -RIGHT SHOULDER ROTATOR CUFF REPAIR -EGD 2008--GASTRITIS -COLONOSCOPY--2011--POLYPECTOMY -LITHOTRIPSY 2011 -RIGHT KNEE SCOPE -REMOVAL OF BASAL CELL SKIN CANCER Review of Systems Constitutional: see HPI Physical Exam Physical Exam Vital Signs Vital Signs - First Documented 06/06/22 06/06/22 06/06/22 10:07 16:01 16:05 Temp 36.8 Pulse 84 Resp 18 B/P (MAP) 133/95 (108) Pulse Ox 95 O2 Delivery Room Air O2 Flow Rate 0.00 FiO2 21 Capillary Refill : Less Than 3 Seconds Height, Weight, BMI Height: 5'9.00" Weight: 175lbs. oz. 79.240856rh; 26.00 BMI Method:Stated General Appearance: No Apparent Distress, Chronically ill Respiratory: Lungs Clear, No Accessory Muscle Use Cardiovascular: Regular Rate, Rhythm, No Murmur Gastrointestinal: Normal Bowel Sounds, Non Tender, Soft Extremity: No Pedal Edema Neurologic/Psychiatric: Alert, Disoriented Skin: Ecchymosis (scattered); No Petechia Results Results/Procedures Labs Laboratory Tests 06/07/22 08:10 06/08/22 09:55 Patient resulted labs reviewed. Imaging: Reviewed Imaging Report Imaging [facility] [place] NAME: SURI GARCIA [facility] REC#: [id number] PT STATUS: ADM Carlene : 1950 PHYSICIAN: CHELSY BAR MD ADMIT DATE: 06/06/22 Signed Date of Exam:06/06/22 CT HEAD WO INDICATION: Patient found down, altered mental status. TECHNIQUE: Multiple contiguous axial images were obtained through the brain without the use of intravenous contrast. Auto Exposure Controls were utilized during the CT exam to meet ALARA standards for radiation dose reduction. There is no previous study for comparison. FINDINGS: There are diffuse atrophic changes. There are patchy low-density changes throughout the deep white matter compatible with chronic ischemic change. There is ventricular prominence secondary to volume loss. There is no acute hemorrhage or subdural or epidural collection. Calvarial windows are unremarkable. IMPRESSION: Atrophic changes and chronic ischemic changes in the deep white matter. No acute intracranial abnormality. Dictated by: Dictated on workstation # [id number] Dict: 06/06/22 1158 Trans: 06/06/22 1435 [id number] Interpreted by: SHONNA ZEE MD Electronically signed by: SHONNA ZEE MD 06/06/22 1435 [facility]. [place], [place] NAME: SURI GARCIA [facility] REC#: [id number] PT STATUS: REG ER : 1950 PHYSICIAN: CHELSY BAR MD ADMIT DATE: 06/06/22/ER Signed Date of Exam:06/06/22 CHEST 1 VIEW, AP/PA ONLY INDICATION: Altered mental status. EXAMINATION: Portable chest at 10:55 a.m. FINDINGS: Heart size and pulmonary vascularity are normal. There is some questionable infiltrate at the left lung base. There are old rib fractures of the left lower lateral thoracic cage. IMPRESSION: Questionable left lateral basilar infiltrate. Dictated by: Dictated on workstation # [id number] Dict: 06/06/22 1059 Trans: 06/06/22 1202 AS6 [id number] Interpreted by: BEATRIZ JONES MD Electronically signed by: BEATRIZ JONES MD 06/06/22 1202 Assessment/Plan Admission Diagnosis Dehydration Admission Status: Observation Reason for Inpatient Admission: see below Assessment and Plan Dehydration Possible Pneumonia Debility Alcohol dependence Continue IVF Will add Rocephin and Azithro to cover for pna Ammonia level added PT/OT Thiamine thi Chronic back pain Resume home tramadol Diagnosis/Problems Diagnosis/Problems (1) Alcohol dependence Status: Acute (2) Dehydration Status: Acute (3) Confusion (4) Smoker Status: Chronic (5) Fall Status: Acute Qualifiers: Encounter type: initial encounter Qualified Codes: W19.XXXA - Unspecified fall, initial encounter (6) Back pain Status: Acute YVETTE MOON MD Jun 06, 2022 13:13
[2022-06-06] MEDS ORDERED: ONDANSETRON 4 MG/2 ML (SDV) Z0FRAN IV PRN ×3 (13:45→14:45)
[2022-06-06] MEDS ORDERED: CALCIUM CARBONATE 500 MG (TUMS) TAB.CHEW PO PRN (13:45)
[2022-06-06] MEDS ORDERED: ACETAMINOPHEN 325 MG TABLET PO PRN ×2 (13:45→14:00)
[2022-06-06] MEDS ORDERED: THIAMINE 100 MG (VITAMIN B-1) TAB PO ONE (13:45)
[2022-06-06] MEDS ORDERED: AZITHROMYCIN INJECTION 500 MG in NS (IVPB) 250 ML IV ONE ×3 (13:45→15:30)
[2022-06-06] MEDS ORDERED: polyethylene glycoL POWDER 17 GM (MIRALAX) PACK PO PRN ×2 (13:45→14:00)
[2022-06-06] MEDS ORDERED: MELATONIN 3 MG TABLET PO PRN ×2 (13:45→14:00)
[2022-06-06] MEDS ORDERED: cefTRIAXone 1 GM PRE-MIX 50 ML IV SCH ×2 (13:45→14:00)
[2022-06-06] MEDS ORDERED: THIAMINE 100 MG (VITAMIN B-1) TAB PO NR (14:00)
[2022-06-06] MEDS: NS IV 1000 ML 1,000 ML IV SCH ×2 (14:03→22:57)
--- NOTE | 2022-06-06 14:07 | Physical Therapy Progress Note ---
Therapy Progress Note Patient just to room from ER. RN requests PT begin tomorrow KATHRYN Esquivel PT Jun 06, 2022 14:07
[2022-06-06] MEDS ORDERED: ONDANSETRON 4 MG (ZOFRAN) ORAL DISSOLVE TAB SL PRN (14:45)
[2022-06-06] MEDS ORDERED: LORazepam INJ 2 MG/ML (ATIVAN) VIAL IM/IV PRN (14:45)
[2022-06-06] MEDS ORDERED: D5 1/2 NS 1000 ML IV SOLUTION 1,000 ML IV PRN (14:45)
[2022-06-06] MEDS ORDERED: 1/2 NS IV SOLUTION 1,000 ML IV PRN (14:45)
[2022-06-06] MEDS ORDERED: ANTACID SUSP 30 ML UDC (MYLANTA) PO PRN (14:45)
[2022-06-06] MEDS: LORazepam INJ 2 MG/ML (ATIVAN) VIAL IV PRN (14:47)
[2022-06-06] MEDS: cefTRIAXone 1 GM PRE-MIX 50 ML IV SCH (15:19)
[2022-06-06 15:54] LABS: MAGNESIUM 1.1 MG/DL (1.6-2.4)
[2022-06-06] MEDS ORDERED: DICL100G13 TOP (16:04)
[2022-06-06] MEDS ORDERED: CA C1TAB73 PO (16:04)
[2022-06-06] MEDS ORDERED: ASCO-262 PO (16:04)
[2022-06-06] MEDS ORDERED: FURO20TA4 PO (16:04)
[2022-06-06] MEDS ORDERED: TRAM50TA3 PO (16:04)
[2022-06-06] MEDS ORDERED: GUAI600T43 PO (16:04)
[2022-06-06] MEDS ORDERED: GABA-486 PO ×2 (16:04)
[2022-06-06] MEDS ORDERED: NAPR-1033 PO (16:04)
[2022-06-06] MEDS ORDERED: VITA-189 PO (16:04)
[2022-06-06] MEDS ORDERED: CYCL5TAB PO (16:04)
[2022-06-06] MEDS ORDERED: POTA10CA44 PO (16:04)
[2022-06-06] MEDS ORDERED: NALT50TA PO (16:04)
[2022-06-06] MEDS ORDERED: LEVO25TA5 PO (16:04)
[2022-06-06] MEDS ORDERED: CHLO-159 PO (16:04)
[2022-06-06] MEDS ORDERED: PROP60CA PO (16:04)
[2022-06-06 16:05] VITALS: BP 133/95
[2022-06-06] MEDS: MAGNESIUM 1 GM/100 ML IVPB 100 ML IV SCH ×4 (16:31→19:31)
[2022-06-06 16:44] VITALS: BP 144/77
[2022-06-06] MEDS ORDERED: RT-ALBUTEROL SULF 2.5 MG/3 ML PRE-MIX VIAL INH PRN (17:00)
[2022-06-06 20:00] VITALS: BP 137/65
[2022-06-06] MEDS: RT-ALBUTEROL SULF 2.5 MG/3 ML PRE-MIX VIAL INH SCH (22:03)
[2022-06-06 23:29] VITALS: BP 152/89
[2022-06-07] MEDS: RT-ALBUTEROL SULF 2.5 MG/3 ML PRE-MIX VIAL INH SCH ×4 (02:49→21:08)
[2022-06-07 03:04] VITALS: BP 166/81
[2022-06-07] MEDS: THIAMINE 100 MG (VITAMIN B-1) TAB PO SCH (06:31)
[2022-06-07] MEDS: NS IV 1000 ML 1,000 ML IV SCH ×3 (06:31→21:57)
[2022-06-07] MEDS ORDERED: THIAMINE 100 MG (VITAMIN B-1) TAB PO SCH (07:00)
[2022-06-07 07:30] VITALS: BP 169/89
[2022-06-07] MEDS: LORazepam 1 MG (ATIVAN) TAB PO PRN ×3 (07:52→21:49)
[2022-06-07 08:14] LABS: HEMATOCRIT 40 % (40-54); HEMOGLOBIN 14.7 g/dL (13.3-17.7); MEAN CORPUSCULAR HEMOGLOBIN 37 pg (25-34); MEAN CORPUSCULAR HGB CONC 37 g/dL (32-36); MEAN CORPUSCULAR VOLUME 101 fL (80-99); MEAN PLATELET VOLUME 9.6 fL (9.0-12.2); PLATELET COUNT 231 10^3/uL (130-400); WHITE BLOOD COUNT 7.5 10^3/uL (4.3-11.0)
[2022-06-07 08:26] LABS: CALCIUM 8.9 MG/DL (8.5-10.1)
[2022-06-07 08:30] LABS: CREATININE SERUM 0.74 MG/DL (0.60-1.30)
--- NOTE | 2022-06-07 09:49 | Physical Therapy Evaluation ---
PT Evaluation-General Medical Diagnosis Admission Date Jun 06, 2022 at 13:23 Medical Diagnosis: AMS Onset Date: Jun 06, 2022 Therapy Diagnosis Therapy Diagnosis: Gait deficit, strength deficit Height/Weight Height (Feet): 5 Height (Inches): 9.00 Weight (Pounds): 175 Precautions Precautions/Isolations: Seizure, Fall Prevention, Standard Precautions, Pressure Ulcer Weight Bear Status Right Lower Extremity: Right Full Weight Bearing Left Lower Extremity: Left Full Weight Bearing Referral Physician: Dr. Grossman Reason for Referral: Evaluation/Treatment Medical History Pertinent Medical History: Alcoholism, Arthritis, Smoking Reviewed History: Yes Social History Home: Single Level Current Living Status: Alone Entry Into Home: Stairs With Railing PT Steps Into Home: 1 Prior Prior Level of Function SCALE: Activities may be completed with or without assistive devices. 7-Houooxqdru-vjcvutd completes the activity by him/herself with no assistance from a helper. 5-Set-up or Clean-up Assistance-helper sets up or cleans up; patient completes activity. Eros assists only prior to or following the activity. 4-Supervision or Touching Assistance-helper provides verbal cues and/or touching/steadying and/or contact guard assistance as patient completes activity. Assistance may be provided throughout the activity or intermittently. 3-Partial/Moderate Assistance-helper does LESS THAN HALF the effort. Eros lifts, holds or supports trunk or limbs, but provides less than half the effort. 2-Substantial/Maximal Assistance-helper does MORE THAN HALF the effort. Eros lifts or holds trunk or limbs and provides more than half the effort. 7-Jipetiyce-zauzpd does ALL the effort. Patient does none of the effort to complete the activity. Or, the assistance of 2 or more helpers is required for the patient to complete the activity. If activity was not attempted, code reason: 7-Patient Refused. 9-Not Applicable-not attempted and the patient did not perform the activity before the current illness, exacerbation or injury. 10-Not Attempted due to Environmental Limitations-(lack of equipment, weather restraints, etc.). 88-Not Attempted due to Medical Conditions or Safety Concerns. Bed Mobility: 6 Transfers (B,C,W/C): 6 Gait: 6 Stairs: 6 Indoor Mobility (Ambulation): Independent Stairs: Independent Cane at times PT Evaluation-Current Subjective Patient sitting upright in bed upon PT arrival, finishing his breakfast however he keeps falling asleep. Patient agreeable to treatment but very drowsy. Patient oriented only to his name. Objective Patient Orientation: Person ROM/Strength ROM Lower Extremities WFLs bilaterally all planes Strength Lower Extremities Patient unable to follow commands for MMT, however demonstrates 3+/5 or greater in all LE motions. Sensory Vision: Functional Hearing: Functional Sensation Right Lower Extremit: Intact Sensation Left Lower Extremity: Intact Transfers Roll Left to Right (QC): 3 Sit to Lying (QC): 3 Lying to Sitting/Side of Bed(Q: 2 Sit to Stand (QC): 2 Gait Does the Patient Walk?: No and Walking Goal IS indicated Mode of Locomotion: Walk Anticipated Mode of Locomotion: Walk Balance Sitting Static: Poor Sitting Dynamic: Poor Standing Static: Poor Standing Dynamic: Poor Assessment/Needs Patient tolerated treatment poorly. Had difficulty staying awake and following commands. Patient required mod to max A for all bed mobility and transfers. Patient requires mod a for sitting at EOB. Once his right UE is placed on the bed for support he is able to support himself with SBA for a few seconds. Patient performs sit to stand with max A, however is unable to stand fully erect and fatigues quickly. Patient in bed post treatment with all needs met, nursing notified, call light in reach, bed alarm activated. Rehab Potential: Guarded PT Online Content Developer Goals Halfway Goals PT Online Content Developer Goals Time Frame: Jul 05, 2022 Roll Left & Right (QC): 6 Sit to Lying (QC): 6 Lying-Sitting on Side/Bed(QC): 6 Sit to Stand (QC): 6 Chair/Vfo-uc-Phbdx Xfer(QC): 6 Toilet Transfer (QC): 6 Does the Patient Walk: Yes Walk 50ft with 2 Turns (QC): 4 Walk 150 ft (QC): 4 Walking 10ft on Uneven Surface: 4 1 Step (curb) (QC): 4 PT Plan Problem List Problem List: Activity Tolerance, Functional Strength, Safety, Balance, Gait, Transfer, Bed Mobility, ROM Treatment/Plan Treatment Plan: Continue Plan of Care Treatment Plan: Bed Mobility, Education, Functional Activity Claudia, Functional Strength, Group Therapy, Gait, Safety, Therapeutic Exercise, Transfers Treatment Duration: Jul 12, 2022 Frequency: 6 times per week Estimated Hrs Per Day: .25 hour per day Patient and/or Family Agrees t: Yes Safety Risks/Education Patient Education: Gait Training, Transfer Techniques Teaching Recipient: Patient Teaching Methods: Demonstration, Discussion Response to Teaching: Reinforcement Needed Time Time In: 844 Time Out: 904 DATE: Jun 07, 2022 Total Billed Treatment Time: 20 Total Billed Treatment Visit, GEOVANNA BUENO PT Jun 07, 2022 09:48
[2022-06-07] MEDS: POTASSIUM CL 10MEQ/50ML IVPB 50 ML IV SCH ×4 (10:03→13:43)
--- NOTE | 2022-06-07 10:46 | Progress Note - Hospitalist ---
Subjective HPI/CC On Admission Date Seen by Provider: Jun 07, 2022 Pt is a 71yoCM With a H alcohol dependence, depression who presented to the emergency department due to altered mental status. He currently lives alone and has a java jsf developer who checks on him regularly. Per report she checked on him yesterday earlier this week and he was down on the ground but did not want the ambulance call. She gave him some water and gave him his normal medications and left. Today a welfare check was called as he had not picked up his Meals on Wheels over the past couple of days and he was found down. He was confused and unable to get up. Despite the previous report that he was given his meds yesterday EMS noticed that his medications had not been taken since Thursday in his pillbox and today is Thursday. He is quite confused and brought to the emergency room for evaluation. In the ER had a CT of his head which was negative for intracranial hemorrhage or stroke. He was found to be quite dehydrated with a lactic acid of greater than 3. There is a questionable pneumonia on chest x-ray. He is being admitted for further management. Subjective/Events-last exam Pt remains confused. Oatmeal had spilled on him and he seemed to be unaware. Asked me what TV show was on but the TV was not on. I called and spoke with his son in law who is a hospitalist in [place]. We reviewed labs and differential and unknown cause of encephalopathy. He requested MRI if able but not able to do on weekend (today is thursday). Plan to repeat CT head today. Focused Exam Lactate Level 06/06/22 10:40: Lactic Acid Level 3.05*H 06/06/22 12:55: Lactic Acid Level 1.54 Objective Exam Vital Signs Vital Signs Date Time Temp Pulse Resp B/P (MAP) Pulse Ox O2 Delivery O2 Flow Rate FiO2 06/08/22 11:17 36.4 74 18 130/98 (109) 98 Room Air 06/08/22 06:36 0.00 06/06/22 16:05 21 Capillary Refill : Less Than 3 Seconds General Appearance: No Apparent Distress, Chronically ill Respiratory: Lungs Clear, No Respiratory Distress Cardiovascular: Regular Rate, Rhythm, No Murmur Gastrointestinal: Normal Bowel Sounds, Non Tender, Soft; No Distended, No Rebound Neurologic/Psychiatric: Alert, Disoriented Results/Procedures Lab Laboratory Tests 06/08/22 09:55 Patient resulted labs reviewed. Assessment/Plan Assessment and Plan Assess & Plan/Chief Complaint Dehydration Possible Pneumonia Debility Alcohol dependence Continue IVF Continue Rocephin and Azithro, repeat CXR Ammonia was 9 Mag was 1.1 on admission, improved to 2.1 today PT/OT Thiamine Repeat CT Head today If negative and no improvement in mentation consider MRI thursday [facility] protocol Seizure precautions Reviewed refill history and he did have tramadol and wellbutrin in his recent fill history and discussed with son in law abotu lower seizure threshold with those and possible for prolonged unwitnessed seizure being source and possibly some anoxia, will repeat CT head as original in ER showed no ICH, CVA, or evidence of anoxic event Chronic back pain Tramadol for now as I'm trying to avoid stronger opoids that could contribute to AMS Diagnosis/Problems Diagnosis/Problems (1) Alcohol dependence Status: Acute (2) Dehydration Status: Acute (3) Confusion (4) Smoker Status: Chronic (5) Fall Status: Acute Qualifiers: Encounter type: initial encounter Qualified Codes: W19.XXXA - Unspecified fall, initial encounter (6) Back pain Status: Acute YVETTE MOON MD Jun 07, 2022 10:46
[2022-06-07 11:30] VITALS: BP 174/77
--- NOTE | 2022-06-07 11:32 | Diagnostic Imaging Report ---
INDICATION: Infiltrate. Time of Exam: 10:44 AM Correlation is made with prior chest one day earlier. Heart size normal. Patchy infiltrate left upper and lower lung field is noted consistent with pneumonia. There also appears to be some minimal patchy infiltrate in the right mid and lower lung field. No effusion or pneumothorax is detected. IMPRESSION: Patchy bilateral infiltrates consistent with pneumonia. Dictated by: Dictated on workstation # [id number]
--- NOTE | 2022-06-07 11:35 | Occupational Therapy Eval ---
OT Evaluation-General/PLF Medical Diagnosis Admission Date Jun 07, 2022 at 10:10 Medical Diagnosis: AMS/possible pneumonia, dehydration Onset Date: Jun 06, 2022 Therapy Diagnosis Therapy Diagnosis: Weakness, AMS, decreased ADL skills Height/Weight Height (Feet): 5 Height (Inches): 9.00 Weight (Pounds): 175 Precautions Precautions/Isolations: Seizure, Fall Prevention, Standard Precautions, Pressure Ulcer Referral Physician: Dr. Grossman Referral Reason: Activity Tolerance, Self Care, Evaluation/Treatment, Strengthening/ROM Medical History Pertinent Medical History: Alcoholism, Arthritis, GERD, Smoking Additional Medical History Back surgery x 2, alcohol dependence, kidney stones, hernia Current History Pt. found down with AMS. Brought to ER. Pt. has significant history of alcohol abuse. Reviewed History: Yes Social History Home: Single Level Current Living Status: Alone Entry Into Home: Stairs With Railing Steps Into Home: 1 ADL-Prior Level of Function SCALE: Activities may be completed with or without assistive devices. 5-Qxnmthbsru-eirqqpz completes the activity by him/herself with no assistance from a helper. 5-Set-up or Clean-up Assistance-helper sets up or cleans up; patient completes activity. [place] assists only prior to or following the activity. 4-Supervision or Touching Assistance-helper provides verbal cues and/or touching/steadying and/or contact guard assistance as patient completes activity. Assistance may be provided throughout the activity or intermittently. 3-Partial/Moderate Assistance-helper does LESS THAN HALF the effort. [place] lifts, holds or supports trunk or limbs, but provides less than half the effort. 2-Substantial/Maximal Assistance-helper does MORE THAN HALF the effort. [place] lifts or holds trunk or limbs and provides more than half the effort. 3-Xmtoqajrv-hevcfo does ALL the effort. Patient does none of the effort to complete the activity. Or, the assistance of 2 or more helpers is required for the patient to complete the activity. If activity was not attempted, code reason: 7-Patient Refused. 9-Not Applicable-not attempted and the patient did not perform the activity before the current illness, exacerbation or injury. 10-Not Attempted due to Environmental Limitations-(lack of equipment, weather restraints, etc.). 88-Not Attempted due to Medical Conditions or Safety Concerns. ADL PLOF Comments Pt's prior level of function is unknown at this time. Pt. is confused and unable to answer OT questions. Self Care: Unknown Functional Cognition: Unknown OT Current Status Subjective Pt. nods when OT asks if he would like to eat some of his breakfast. Appearance Pt. is in bed with head elevated. He has breakfast tray in front of him. He has spilled some of his oatmeal on him. Pt. is unable to keep eyes open throughout. Mental Status/Objective Patient Orientation: Confused Attachments: IV ADL-Treatment Eating (QC): 2 Pt. indicates that he would like to eat. OT puts some egg on a fork and attempts to hand to him. Pt. does not initiate taking fork but does open his mouth. He chews the egg but does not seem to swallow. OT offers him his orange juice and he holds it with his hand, but requires assist as he almost spills it. Pt. does not initiate taking another bite. Radiology techs come in to take an x-ray and then take pt. to CT. OT assist with pt's transfer. Pt. does not initiate bringing his feet over to side. Requires dependent assist for supine- sit, and max x 2 for stand pivot to wheelchair. Once pt. is in wheelchair he requires max assist to bring feet to foot rests and then to sit back in chair. Pt. taken to radiology lab. Education OT Patient Education: Correct positioning, Modified ADL techniques, Transfer techniques Teaching Recipient: Patient Teaching Methods: Demonstration, Discussion Response to Teaching: Unable to Comprehend, Reinforcement Needed OT Short Term Goals Short Term Goals Time Frame: Jun 21, 2022 Eatin (min assist) Oral hygiene: 3 (mod assist) Toileting hygiene: 3 (mod assist) Upper body dressin (mod assist) OT Video Operator Goals Video Operator Goals Time Frame: Jul 05, 2022 Eating (QC): 5 Oral Hygiene (QC): 5 Toileting Hygiene (QC): 4 (min assist) Shower/Bathe Self (QC): 3 Upper Body Dressing (QC): 5 Lower Body Dressing (QC): 3 On/Off Footwear (QC): 4 (min assist with AE as needed.) Additional Goals: 1-Demonstrate ADL Tasks, 2-Verbalize Understanding, 3- ImproveStrength/Claudia 1=Demonstrate adherence to instructed precautions during ADL tasks. 2=Patient will verbalize/demonstrate understanding of assistive devices/mod ifications for ADL. 3=Patient will improve strength/tolerance for activity to enable patient to perform ADL's. OT Education/Plan Problem List/Assessment Assessment: Decreased Activ Tolerance, Decreased Safety Aware, Decreased UE Strength, Dependent Transfers, Impaired Bed Mobility, Impaired Cognition, Impaired Coordination, Impaired Funct Balance, Impaired I ADL's, Impaired Self- Care Skills, Restricted Funct UE ROM Discharge Recommendations Plan/Recommendations: Continue POC Therapy Discharge Recommendati: 24 Hour Supervision, Post Acute OT Treatment Plan/Plan of Care Treatment,Training & Education: Yes Patient would benefit from OT for education, treatment and training to promote independence in ADL's, mobility, safety and/or upper extremity function for ADL's. Plan of Care: ADL Retraining, Functional Mobility, UE Funct Exercise/Act Treatment Duration: Jul 05, 2022 Frequency: 3 times per week (Pt. would benefit from skilled OT services approximately 3-5x per week) Estimated Hrs Per Day: .25 hour per day Agreement: Yes Rehab Potential: Guarded Time Start Time: 10:52 Stop Time: 11:00 DATE: Jun 07, 2022 Total Time Billed (hr/min): 8 Billed Treatment Time 1, EVH x 8minutes CONCHITA HEBERT OT Jun 07, 2022 11:35
[2022-06-07 12:04] LABS: AMPHETAMINE SCREEN, URINE NEGATIVE (NEGATIVE); BARBITURATE SCREEN URINE NEGATIVE (NEGATIVE); BENZODIAZEPINES SCREEN URINE POSITIVE (NEGATIVE); CANNABINOID SCREEN, URINE NEGATIVE (NEGATIVE); COCAINE SCREEN URINE NEGATIVE (NEGATIVE); METHADONE STAT NEGATIVE (NEGATIVE); OPIATE SCREEN URINE NEGATIVE (NEGATIVE); OXYCODONE STAT NEGATIVE (NEGATIVE); PROPOXYPHENE STAT NEGATIVE (NEGATIVE); TRICYCLIC ANTIDEPRESSANTS SCRE NEGATIVE (NEGATIVE)
--- NOTE | 2022-06-07 12:34 | Diagnostic Imaging Report ---
PROCEDURE: CT head without contrast. TECHNIQUE: Multiple contiguous axial images were obtained through the brain without the use of intravenous contrast. Auto Exposure Controls were utilized during the CT exam to meet ALARA standards for radiation dose reduction. INDICATION: Altered metal status and confusion. Comparison is made with prior CT from one day earlier. The ventricles and sulci are prominent consistent with cerebral volume loss. Moderate periventricular low attenuation is noted consistent with chronic microvascular ischemia. No sulcal effacement or midline shift is identified. No acute intra-axial or extra-axial hemorrhage is detected. Cisterns are patent. Visualized paranasal sinuses are clear. IMPRESSION: Stable chronic changes with compared exam one day earlier. No acute intracranial process is detected. Dictated by: Dictated on workstation # [id number]
[2022-06-07] MEDS: cefTRIAXone 1 GM PRE-MIX 50 ML IV SCH (14:54)
[2022-06-07 15:38] VITALS: BP 152/76
[2022-06-07] MEDS: LORazepam INJ 2 MG/ML (ATIVAN) VIAL IV PRN ×2 (16:21→23:31)
[2022-06-07 19:22] VITALS: BP 152/76
[2022-06-07 23:34] VITALS: BP 170/74
[2022-06-08] VITALS (7 sets, daily range): BP systolic 130–180; BP diastolic 76–98
[2022-06-08] MEDS: RT-ALBUTEROL SULF 2.5 MG/3 ML PRE-MIX VIAL INH SCH ×4 (02:07→20:28)
[2022-06-08] MEDS: NS IV 1000 ML 1,000 ML IV SCH ×3 (05:15→13:07)
[2022-06-08] MEDS: LORazepam INJ 2 MG/ML (ATIVAN) VIAL IV PRN ×3 (05:15→21:30)
[2022-06-08] MEDS: THIAMINE 100 MG (VITAMIN B-1) TAB PO SCH (05:29)
[2022-06-08] MEDS: LORazepam 1 MG (ATIVAN) TAB PO PRN ×3 (08:45→18:09)
[2022-06-08 10:04] LABS: HEMATOCRIT 34 % (40-54); HEMOGLOBIN 12.3 g/dL (13.3-17.7); MEAN CORPUSCULAR HEMOGLOBIN 37 pg (25-34); MEAN CORPUSCULAR HGB CONC 36 g/dL (32-36); MEAN CORPUSCULAR VOLUME 101 fL (80-99); MEAN PLATELET VOLUME 9.7 fL (9.0-12.2); PLATELET COUNT 208 10^3/uL (130-400)
[2022-06-08 10:14] LABS: CALCIUM 7.9 MG/DL (8.5-10.1)
[2022-06-08 10:18] LABS: CREATININE SERUM 0.63 MG/DL (0.60-1.30)
--- NOTE | 2022-06-08 11:25 | Progress Note - Hospitalist ---
Subjective HPI/CC On Admission Date Seen by Provider: Jun 08, 2022 Pt is a 71yoCM With a PMH alcohol dependence, depression who presented to the emergency department due to altered mental status. He currently lives alone and has a assignment manager who checks on him regularly. Per report she checked on him yesterday earlier this week and he was down on the ground but did not want the ambulance call. She gave him some water and gave him his normal medications and left. Today a welfare check was called as he had not picked up his Meals on Wheels over the past couple of days and he was found down. He was confused and unable to get up. Despite the previous report that he was given his meds yesterday EMS noticed that his medications had not been taken since Thursday in his pillbox and today is Thursday. He is quite confused and brought to the emergency room for evaluation. In the ER had a CT of his head which was negative for intracranial hemorrhage or stroke. He was found to be quite dehydrated with a lactic acid of greater than 3. There is a questionable pneumonia on chest x-ray. He is being admitted for further management. Subjective/Events-last exam Pt mentation improved slightly today. Knew his name, location, and why he was in the hospital. Did not know year, month, or president. Did know he had 3 son in laws. Spoke with son in law and daughter. Both confirm he is a DNR. Daughter concerned about previous TIAs and incontinence. Focused Exam Lactate Level 06/06/22 10:40: Lactic Acid Level 3.05*H 06/06/22 12:55: Lactic Acid Level 1.54 Objective Exam Vital Signs Vital Signs Date Time Temp Pulse Resp B/P (MAP) Pulse Ox O2 Delivery O2 Flow Rate FiO2 06/08/22 11:17 36.4 74 18 130/98 (109) 98 Room Air 06/08/22 06:36 0.00 06/06/22 16:05 21 Capillary Refill : Less Than 3 Seconds General Appearance: No Apparent Distress, Chronically ill Respiratory: Lungs Clear, No Respiratory Distress Cardiovascular: Regular Rate, Rhythm, No Murmur Neurologic/Psychiatric: Other (alert but confused) Results/Procedures Lab Laboratory Tests 06/08/22 09:55 Patient resulted labs reviewed. Assessment/Plan Assessment and Plan Assess & Plan/Chief Complaint Dehydration Possible Pneumonia Debility Alcohol dependence Continue IVF Continue Rocephin and Azithro, repeat CXR showed bilateral pna Mag and potassium replace again today PT/OT Thiamine Repeat CT Head unchanged MRI in [facility] protocol Seizure precautions Chronic back pain Tramadol, tolerating well Diagnosis/Problems Diagnosis/Problems (1) Alcohol dependence Status: Acute (2) Dehydration Status: Acute (3) Confusion (4) Smoker Status: Chronic (5) Fall Status: Acute Qualifiers: Encounter type: initial encounter Qualified Codes: W19.XXXA - Unspecified fall, initial encounter (6) Back pain Status: Acute YVETTE MOON MD Jun 08, 2022 11:25
[2022-06-08] MEDS ORDERED: NS IV 500 ML 500 ML IV PRN (11:30)
[2022-06-08] MEDS: MAGNESIUM 1 GM/100 ML IVPB 100 ML IV SCH ×2 (11:58→13:02)
[2022-06-08] MEDS: POTASSIUM CL 10MEQ/50ML IVPB 50 ML IV SCH ×8 (13:07→19:37)
[2022-06-08] MEDS: cefTRIAXone 1 GM PRE-MIX 50 ML IV SCH (14:11)
[2022-06-09] VITALS (7 sets, daily range): BP systolic 104–148; BP diastolic 62–89
[2022-06-09] MEDS: POTASSIUM CL 10MEQ/50ML IVPB 50 ML IV SCH ×2 (00:22→05:51)
[2022-06-09] MEDS: NS IV 1000 ML 1,000 ML IV SCH ×2 (03:03→17:59)
[2022-06-09 05:05] LABS: HEMATOCRIT 38 % (40-54); HEMOGLOBIN 13.9 g/dL (13.3-17.7); MEAN CORPUSCULAR HEMOGLOBIN 37 pg (25-34); MEAN CORPUSCULAR HGB CONC 37 g/dL (32-36); MEAN CORPUSCULAR VOLUME 100 fL (80-99); PLATELET COUNT 219 10^3/uL (130-400); WHITE BLOOD COUNT 7.3 10^3/uL (4.3-11.0)
[2022-06-09 05:33] LABS: CALCIUM 8.9 MG/DL (8.5-10.1); CREATININE SERUM 0.7 MG/DL (0.60-1.30); MAGNESIUM 1.7 MG/DL (1.6-2.4); POTASSIUM 3.7 MMOL/L (3.6-5.0)
[2022-06-09] MEDS: MAGNESIUM 1 GM/100 ML IVPB 100 ML IV SCH ×4 (05:51→09:25)
[2022-06-09] MEDS ORDERED: POTASSIUM BICARB 20 MEQ (EFFER-K) TABLET PO SCH (06:00)
[2022-06-09] MEDS ORDERED: POTASSIUM CL 10MEQ/50ML IVPB 50 ML IV SCH (06:00)
[2022-06-09] MEDS ORDERED: MAGNESIUM 1 GM/100 ML IVPB 100 ML IV SCH (06:00)
[2022-06-09] MEDS ORDERED: KCL 20 MEQ TAB (K-DUR) PO SCH ×2 (06:00→07:00)
[2022-06-09] MEDS: THIAMINE 100 MG (VITAMIN B-1) TAB PO SCH (06:21)
[2022-06-09] MEDS: RT-ALBUTEROL SULF 2.5 MG/3 ML PRE-MIX VIAL INH SCH ×2 (08:08→21:58)
[2022-06-09] MEDS: LORazepam 1 MG (ATIVAN) TAB PO PRN ×2 (11:23→13:18)
--- NOTE | 2022-06-09 11:41 | Diagnostic Imaging Report ---
Clinical Indication: Patient having confusion and decreased motor skills. Exam: MRI of the brain performed without IV contrast. Sequences include axial DWI, ADC map, and axial T2. MRI imaging is limited due to patient refused to continue scan. Comparison: None. Findings: There is no evidence of acute cerebral infarct, intracranial hemorrhage, or gross mass effect. There is diffuse brain parenchymal volume loss. There is diffuse patchy and confluent areas of high T2 signal white matter changes throughout both cerebral hemispheres, periventricular regions, and fabienne. There is normal desouza-white matter distinction. There is no significant midline shift or herniation. There is no evidence of hydrocephalus. The basal cisterns are unremarkable. The skull, extracranial soft tissue, and orbits are unremarkable. The paranasal sinuses are unremarkable. There is a small amount of fluid involving both mastoid air cells. IMPRESSION: 1: Incomplete MRI of the brain due to patient refusing to continue scan. There is no definite evidence of acute intracranial process. 2: There is diffuse brain parenchymal volume loss and diffuse high T2 signal white matter changes throughout both cerebral hemispheres, periventricular regions, and fabienne. These findings may be related to chronic small vessel ischemic disease. If the patient is having acute confusion, leukoencephalopathy of unknown etiology may be considered. Comparison to prior brain imaging, if available, would help better evaluate for chronicity of these findings. Dictated by: Dictated on workstation # [id number]
--- NOTE | 2022-06-09 11:48 | Occ Therapy Progress Note ---
Therapy Progress Note Pt in room in bed, eyes closed. Did not open them and answered that he did not want to do therapy. visit ADAM GUERRA OT Jun 09, 2022 11:48
--- NOTE | 2022-06-09 13:48 | Physical Therapy Progress Note ---
Therapy Progress Note Patient on Hold per RN due to current status. PT will attempt tomorrow KATHRYN Esquivel PT Jun 09, 2022 13:48
--- NOTE | 2022-06-09 14:47 | Speech Therapy Progress Note ---
Therapy Progress Note Speech pathology received a consultation for a clinical bedside swallowing evaluation, as well as, a cognitive linguistic assessment. The clinician completed a chart review and attempted the assessments at 1430. With maximum, consistent verbal prompting from the clinician, the patient stated his name, only. The patient was not oriented to his location, the month, or the year through simple yes and no questions. The patient consistently returned to sleep, mumbling intermittently while the clinician was present. Due to the patient's reduced alertness, the evaluations could not be completed at this time. ST to re-attempts assessments with appropriate alertness and participation from the patient. Thank you for the consultation. SHORTY MCKOY Jun 09, 2022 14:47
[2022-06-09] MEDS: cefTRIAXone 1 GM PRE-MIX 50 ML IV SCH (15:35)
[2022-06-09] MEDS: LORazepam INJ 2 MG/ML (ATIVAN) VIAL IV PRN (19:37)
--- NOTE | 2022-06-12 08:30 | Discharge Summary ---
Discharge Summary Hospital Course Problems/Dx: (1) Alcohol dependence Status: Acute Qualifiers: Qualified Codes: F10.231 - Alcohol dependence with withdrawal delirium (2) Dehydration Status: Acute (3) Confusion (4) Smoker Status: Chronic (5) Fall Status: Acute Qualifiers: Qualified Codes: W19.XXXA - Unspecified fall, initial encounter (6) Back pain Status: Acute Hospital Course Date of Admission: Jun 07, 2022 at 10:10 Admission Diagnosis : Alcohol dependence in withdrawal with delirium Family Physician/Provider: Jadon Clifford MD Date of Discharge: 06/12/22 Discharge Diagnosis: Alcohol dependence in withdrawal with delirium Hospital Course: Deion Rivera is a 71 year old male with H alcohol dependence who presented with altered mental status. He was found down on the ground in his home and EMS was called. He had a CT which showed no acute abnormalities, only chronic ischemic changes and atrophy. A repeat CT 24 hours later again showed no acute abnormalitites. He had an MRI brain which showed no acute abnormalities. There was a questionable pneumonia and he was treated with IV antibiotics. He was not septic. Other encephalopathy workup was negative. He remained encephalopathic despite requiring only a small amount of Ativan for alcohol withdrawal. His case was discussed with Neurology at [facility] and they agreed to consult if transferred. He was transferred to the hospitalist service, Dr. Pate, at [facility] for further workup and neurology evaluation due to his encephalopathy. Labs and Pending Lab Test: Microbiology 06/06/22 Blood Culture - Final, Complete No growth 06/06/22 Urine Culture - Final, Complete NO GROWTH Home Meds Active Reported Naproxen Sodium 220 Mg Tablet 220 Mg PO BID PRN Chlortabs (Chlorpheniramine Maleate) 4 Mg Tablet 4 Mg PO BID Mucinex (Guaifenesin) 600 Mg Tab.er.12h 600 Mg PO Q12H Alex Mag Zinc + D Tablet (Calcium Carb/D3/Magnesium/Zinc) 333MG-133 Tablet 1 Each PO BID Vitamin C (Ascorbate Calcium) 500 Mg Tablet 500 Mg PO HS B Complex (Vitamin B Complex) 1 Each Tablet 1 Each PO DAILY Levothyroxine Sodium 25 Mcg Tablet 25 Mcg PO DAILY Gabapentin 100 Mg Capsule 100 Mg PO HS Gabapentin 100 Mg Capsule 200 Mg PO DAILY TAKES 2 (100MG) CAPS Furosemide 20 Mg Tablet 20 Mg PO DAILY Potassium Chloride 10 Meq Capsule.er 10 Meq PO HS Naltrexone HCl 50 Mg Tablet 50 Mg PO HS Diclofenac Sodium 1 % Gel..gram. 1 Applic TOP QID PRN Cyclobenzaprine HCl 5 Mg Tablet 5-10 Mg PO BID PRN TAKES 1 TO 2 (5MG) TABS Tramadol HCl 50 Mg Tablet 50-100 Mg PO Q6H PRN Propranolol HCl ER (Propranolol HCl) 60 Mg Cap.sa.24h 60 Mg PO 1400 Bupropion HCl Sr (Bupropion HCl) 150 Mg Tablet.er 300 Mg PO DAILY TAKES 2 (150MG) TABS DAILY Bupropion HCl Sr (Bupropion HCl) 150 Mg Tablet.er 150 Mg PO HS Miralax (Polyethylene Glycol 3350) 17 Gram Powd.pack 17 Gm PO DAILY Tylenol Extra Strength (Acetaminophen) 500 Mg Tablet 1,000 Mg PO Q8H PRN Ondansetron Odt (Ondansetron) 4 Mg Tab.rapdis 4 Mg PO Q4H PRN Rabeprazole Sodium 20 Mg Tablet.dr 20 Mg PO DAILY Assessment/Pt Instructions Transferred to [facility] for neurology evaluation Discharge Planning: >30 minutes discharge planning Discharge Instructions Discharge Diet: No Restrictions Activity as Tolerated: Yes Discharge Physical Examination Vital Signs Vital Signs Date Time Temp Pulse Resp B/P (MAP) Pulse Ox O2 Delivery O2 Flow Rate FiO2 06/09/22 20:00 36.8 74 20 136/79 (98) 97 Room Air 06/09/22 08:08 0.00 06/08/22 21:07 21 General Appearance: No Apparent Distress, WD/WN Respiratory: Lungs Clear, No Respiratory Distress Cardiovascular: Regular Rate, Rhythm, No Murmur Gastrointestinal: Normal Bowel Sounds, Soft Extremity: Normal Inspection, No Pedal Edema Neurologic/Psychiatric: Alert, Normal Mood/Affect, Disoriented Allergies: Coded Allergies: No Known Drug Allergies (Unverified , 04/11/11) Discharge Summary Date of Admission Jun 07, 2022 at 10:10 Date of Discharge Jun 09, 2022 at 10:25 Discharge Date: Jun 09, 2022 Discharge Time: 10:25 Admission Diagnosis Dehydration Discharge Diagnosis Acute metabolic encephalopathy, alcohol dependence in withdrawal with delirium (1) Alcohol dependence Status: Acute Qualifiers: Qualified Codes: F10.231 - Alcohol dependence with withdrawal delirium (2) Dehydration Status: Acute (3) Confusion (4) Smoker Status: Chronic (5) Fall Status: Acute Qualifiers: Qualified Codes: W19.XXXA - Unspecified fall, initial encounter (6) Back pain Status: Acute BARBARA COX MD Jun 12, 2022 08:22
== END 2022-06-09 10:25 | DRG 640 ==
LOC: EDUNIT# 10:02 → ER 10:04 → 4TH 13:23 → UNDODISOB 13:45 → OBSVTOIN 06-07 10:10
PROVIDERS: ADMIT Family Medicine; ATTEND Internal Medicine
DX: E86.0 Dehydration (principal); J18.9 Pneumonia, unspecified organism; R53.81 Other malaise; F10.20 Alcohol dependence, uncomplicated; Z66 Do not resuscitate; G89.29 Other chronic pain; M54.9 Dorsalgia, unspecified; F17.210 Nicotine dependence, cigarettes, uncomplicated; R41.0 Disorientation, unspecified; F32.A Depression, unspecified; K21.9 Gastro-esophageal reflux disease without esophagitis; M19.90 Unspecified osteoarthritis, unspecified site
CPT/HCPCS: 36410; 36415; 51702; 70450; 70551; 71045; 76937; 80048; 80053; 80306; 80320; 81000; 82140; 82550; 82607; 82746; 83605; 83735; 84100; 84443; 84484; 85025; 85027; 85610; 85730; 87040; 87088; 87449; 87899; 93005; 94640; 94760; G0378